=== PATIENT | female | born 1935 | race Caucasian/White ===

== ENCOUNTER 2017-07-31 09:23 | Emergency (ER) | payer MEDICARE, BC ==
--- NOTE | 2017-07-31 09:37 | EDM.PDOC ---
ED HPI GENERAL MEDICAL PROBLEM - General Chief Complaint: Upper Extremity Injury/Pain Stated Complaint: FALL Time Seen by Provider: 07/31/17 09:33 - History of Present Illness INITIAL COMMENTS - FREE TEXT/NARRATIVE: HISTORY AND PHYSICAL: History of present illness: Patient is a 81-year-old white female who presents 24 hours status post fall which injured her right wrist she states she tripped over a cord was strictly mechanical fall she states she also hit her face and her glasses caused some trauma and periorbital ecchymosis she denies loss consciousness neck pain nausea vomiting and is declining any diagnostics or further evaluation for her had her neck related to this she is only interested in an x-ray of her right wrist in her wrist pain. She denies any bleeding diathesis denies anticoagulants or antiplatelets Review of systems: As per history of present illness and below otherwise all systems reviewed and negative. Past medical history: As per history of present illness and as reviewed below otherwise noncontributory. Surgical history: As per history of present illness and as reviewed below otherwise noncontributory. Social history: No reported history of drug or alcohol abuse. Family history: As per history of present illness and as reviewed below otherwise noncontributory. Physical exam: HEENT: Patient has some midface ecchymosis and swelling and an abrasion over the bridge of her nose normocephalic, pupils reactive, negative for conjunctival pallor or scleral icterus, mucous membranes moist, throat clear, neck supple, nontender, trachea midline. Lungs: Clear to auscultation, breath sounds equal bilaterally, chest nontender. Heart: S1S2, regular, negative for clicks, rubs, or JVD. Abdomen: Soft, nondistended, nontender. Negative for masses or hepatosplenomegaly. Negative for costovertebral tenderness. Pelvis: Stable nontender. Genitourinary: Deferred. Rectal: Deferred. Extremities: Patient has some tenderness and swelling over the distal radius of her right wrist she has limited range of motion secondary to pain CMS neurovascular exam are unremarkable Neuro: Awake, alert, oriented. Cranial nerves II through XII unremarkable. Cerebellum unremarkable. Motor and sensory unremarkable throughout. Exam nonfocal. Diagnostics: X-ray right wrist Therapeutics: To be determined Impression: #1 acute right wrist injury #2 observation status post fall #3 head trauma with midface swelling and ecchymosis Definitive disposition and diagnosis as appropriate pending reevaluation and review of above. - Related Data Allergies Allergy/AdvReac Type Severity Reaction Status Date / Time No Known Allergies Allergy Verified 07/31/17 09:40 Home Meds: Home Meds Losartan/Hydrochlorothiazide [Losartan-HCTZ 100-25 MG] 1 tab PO DAILY 07/31/17 [ History] atorvaSTATin [Lipitor] 20 mg PO DAILY 07/31/17 [History] Review of Systems - Review of Systems Review Of Systems: ROS reveals no pertinent complaints other than HPI. ED EXAM, GENERAL - Physical Exam Exam: See Below (See dictation) Course - Vital Signs Last Recorded V/S: Last Vital Signs Temp 36.7 C 07/31/17 09:33 Pulse 88 07/31/17 09:33 Resp 18 07/31/17 09:33 BP 117/55 L 07/31/17 09:33 Pulse Ox 94 L 07/31/17 09:33 Departure - Departure Time of Disposition: 10:49 Disposition: Home, Self-Care 01 Condition: Good Clinical Impression: Fracture of radius and ulna - Discharge Information Referrals: Ari Mera MD [Primary Care Provider] - Forms: ED Department Discharge Additional Instructions: The following information is given to patients seen in the emergency department who are being discharged to home. This information is to outline your options for follow-up care. We provide all patients seen in our emergency department with a follow-up referral. The need for follow-up, as well as the timing and circumstances, are variable depending upon the specifics of your emergency department visit. If you don't have a primary care physician on staff, we will provide you with a referral. We always advise you to contact your personal physician following an emergency department visit to inform them of the circumstance of the visit and for follow-up with them and/or the need for any referrals to a consulting specialist. The emergency department will also refer you to a specialist when appropriate. This referral assures that you have the opportunity for followup care with a specialist. All of these measure are taken in an effort to provide you with optimal care, which includes your followup. Under all circumstances we always encourage you to contact your private physician who remains a resource for coordinating your care. When calling for followup care, please make the office aware that this follow-up is from your recent emergency room visit. If for any reason you are refused follow-up, please contact the [facility] emergency department at and asked to speak to the emergency department charge nurse. BAHMAN [facility] [address], [address] [place] [address] Splint sling as directed Motrin/Tylenol as directed follow-up orthopedic clinic as discussed return as needed as discussed
--- NOTE | 2017-07-31 10:01 | CR ---
EXAMINATION: Right wrist HISTORY: Fall COMPARISON: None TECHNIQUE: 3 views FINDINGS: There is a mildly impacted comminuted distal radial metaphysis fracture identified. An zane cent ulnar styloid fracture also noted. Chondrocalcinosis is present. Moderate generalized osteopenia . Radiocarpal alignment is preserved. Mild degenerative changes noted at the first CMC joint. IMPRESSION: 1. Comminuted mildly impacted distal radial metaphysis fracture. 2. Smaller styloid fracture. 3. Generalized osteopenia.
== END 2017-07-31 11:20 | disposition home or self-care (01) ==
LOC: MW.ED 09:23
DX: S52.591A Other fractures of lower end of right radius, initial encounter for closed fracture (principal); S52.611A Displaced fracture of right ulna styloid process, initial encounter for closed fracture; S00.83XA Contusion of other part of head, initial encounter; S00.31XA Abrasion of nose, initial encounter; Z79.899 Other long term (current) drug therapy; W01.0XXA Fall on same level from slipping, tripping and stumbling without subsequent striking against object, initial encounter
CPT/HCPCS: 73110; 99283; A4566

== ENCOUNTER 2019-08-25 12:54 | Inpatient (IN) | payer MEDICARE, BC, OTHER ==
--- NOTE | 2019-08-25 13:34 | EDM.PDOC ---
ED HPI GENERAL MEDICAL PROBLEM - General Chief Complaint: General Stated Complaint: PT FELL Time Seen by Provider: 08/25/19 13:30 Source of Information: Reports: Patient History Limitations: Reports: No Limitations - History of Present Illness INITIAL COMMENTS - FREE TEXT/NARRATIVE: This 84 year old female was admitted to the ED with a chief complaint of falling while bending over trying to get a can of coke out of her closet. She states that she fell backwards striking the back of her head. She denies any loss of consciousness but was dazed. She denies any focal neurologic deficits. She denies any chest pain or SOB. No nausea or vomiting. No urinary symptoms. She complains of being very thirsty and that her mouth is "real dry" . She denies any other symptoms at this time. Onset: Today Location: Reports: Head (struck back of head) Severity: Mild - Related Data Allergies Allergy/AdvReac Type Severity Reaction Status Date / Time No Known Allergies Allergy Verified 07/31/17 09:40 Home Meds: Home Meds Losartan/Hydrochlorothiazide [Losartan-HCTZ 100-25 MG] 1 tab PO DAILY 07/31/17 [ History] atorvaSTATin [Lipitor] 20 mg PO DAILY 07/31/17 [History] Past Medical History HEENT History: Reports: None Cardiovascular History: Reports: Aneurysm, High Cholesterol, Hypertension Respiratory History: Reports: None Gastrointestinal History: Reports: None Genitourinary History: Reports: None 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: hysterectomy Musculoskeletal History: Reports: Arthritis, Back Pain, Chronic Neurological History: Reports: None Psychiatric History: Reports: None Endocrine/Metabolic History: Reports: Hypothyroidism Hematologic History: Reports: None Immunologic History: Reports: None Oncologic (Cancer) History: Reports: None Dermatologic History: Reports: None - Infectious Disease History Infectious Disease History: Reports: Chicken Pox, Meningitis, Mumps - Past Surgical History Head Surgeries/Procedures: Reports: None HEENT Surgical History: Reports: None Cardiovascular Surgical History: Reports: None Respiratory Surgical History: Reports: None GI Surgical History: Reports: Appendectomy, Cholecystectomy Female Surgical History: Reports: Hysterectomy Endocrine Surgical History: Reports: None Neurological Surgical History: Reports: None Musculoskeletal Surgical History: Reports: None Oncologic Surgical History: Reports: None Dermatological Surgical History: Reports: None Social & Family History - Family History Family Medical History: Noncontributory - Tobacco Use Smoking Status *Q: Current Every Day Smoker Years of Tobacco use: 63 Packs/Tins Daily: 2 - Caffeine Use Caffeine Use: Reports: None - Recreational Drug Use Recreational Drug Use: No ED ROS GENERAL - Review of Systems Review Of Systems: See Below Constitutional: Reports: No Symptoms HEENT: Reports: Other (mild headache). Denies: Vertigo Respiratory: Reports: No Symptoms Cardiovascular: Reports: No Symptoms Endocrine: Reports: No Symptoms GI/Abdominal: Reports: No Symptoms : Reports: No Symptoms Musculoskeletal: Reports: No Symptoms Skin: Reports: No Symptoms Neurological: Reports: No Symptoms Psychiatric: Reports: Other (mild age related) ED EXAM, GENERAL - Physical Exam Exam: See Below Exam Limited By: No Limitations General Appearance: Alert, WD/WN, No Apparent Distress Eye Exam: Bilateral Eye: EOMI, Normal Fundi, Normal Inspection, PERRL Ears: Normal External Exam, Normal Canal, Hearing Grossly Normal, Normal TMs Ear Exam: Bilateral Ear: Auricle Normal, Canal Normal, TM normal Nose: Normal Inspection, Normal Mucosa, No Blood Throat/Mouth: Normal Inspection, Normal Lips, Normal Teeth, Normal Gums, Normal Oropharynx, Normal Voice, No Airway Compromise Head: Normocephalic, Other (very small lump on the occipital area that does not elicit pain or discomfort). No: Facial Swelling, Facial Tenderness Neck: Normal Inspection, Supple, Non-Tender, Full Range of Motion Respiratory/Chest: No Respiratory Distress, Chest Non-Tender, Decreased Breath Sounds (slight decrease breath sounds right base), Rhonchi (noted in right base with fine rales) Cardiovascular: Normal Peripheral Pulses, JVD, Bradycardia (but normal sinus rhythm), Systolic Murmur (systolic ejection murmur grade 3/6 best heard at the apex without radiation into the carotids.) Peripheral Pulses: 2+: Dorsalis Pedis (R), 3+: Carotid (L), Carotid (R), Radial (L), Radial (R), Dorsalis Pedis (L) GI/Abdominal: Normal Bowel Sounds, Soft, Non-Tender, No Organomegaly, No Abnormal Bruit, No Mass (Female) Exam: Deferred Rectal (Female) Exam: Deferred Back Exam: Normal Inspection, Decreased Range of Motion (in all planes due to pain), Other (chronic low back pain with arth changes in her spine) Extremities: Normal Inspection, Normal Range of Motion, Non-Tender, Slow Capillary Refill. No: Tahira's Sign Neurological: Alert, Oriented (to person, place and situation but not day of week.), CN II-XII Intact, Normal Reflexes, No Motor/Sensory Deficits Psychiatric: Normal Affect, Normal Mood Skin Exam: Warm, Dry (slight decrease in skin tugor), Normal Color Lymphatic: No Adenopathy Course - Vital Signs Text/Narrative:: I talked with Dr. Rajput at 3:46PM. I discussed all of her labs and imaging studies. Her diagnosis is: Acute renal injury/right lower lobe pneumonia/ dehydration. She is a DNR/DNI that was verified by the patient and her son. She will be started on Rocephin and Zithromax. She will be admitted to OBS/ TELE. The patient and the son agrees with the admission plan. Last Recorded V/S: Last Vital Signs Temp 97.8 F 08/25/19 15:05 Pulse 63 08/25/19 15:05 Resp 15 08/25/19 15:05 BP 160/64 H 08/25/19 15:05 Pulse Ox 99 08/25/19 15:05 - Orders/Labs/Meds Orders: Active Orders 24 hr Category Date Time Status EKG 12 Lead [EKG Documentation Completion] [RC] STAT Care 08/25/19 13:31 Active Chappell Catheter Insertion [Insert Urinary Catheter] [OM. Care 08/25/19 15:30 Ordered PC] Q24H Urinary Catheter Assessment [RC] ASDIRECTED Care 08/25/19 15:24 Ordered B-TYPE NATRIURETIC PEPTIDE,BNP [CHEM] Stat Lab 08/25/19 15:28 Ordered CULTURE BLOOD [BC] Stat Lab 08/25/19 15:24 Ordered CULTURE BLOOD [BC] Stat Lab 08/25/19 15:24 Ordered LACTIC ACID,WHOLE BLOOD [BG] Stat Lab 08/25/19 15:28 Ordered UA W/TATIANA RFLX IF INDICATED [URIN] Stat Lab 08/25/19 15:22 Ordered Azithromycin [Zithromax] 500 mg Med 08/25/19 15:45 Ordered Sodium Chloride 0.9% [Normal Saline (AdvBag)] 250 ml IV ONETIME Sodium Chloride 0.9% [Normal Saline] 1,000 ml Med 08/25/19 15:30 Active IV ASDIRECTED Sodium Chloride 0.9% [Normal Saline] 500 ml Med 08/25/19 14:00 Active IV .BOLUS cefTRIAXone [Rocephin] 1 gm Med 08/25/19 15:42 Ordered Sodium Chloride 0.9% [Normal Saline] 50 ml IV ONETIME Blood Culture x2 Reflex Set [OM.PC] Stat Oth 08/25/19 15:22 Ordered Medication Orders Sodium Chloride (Normal Saline) 500 mls @ 500 mls/hr IV .BOLUS ARLYN Last Admin: 08/25/19 14:14 Dose: 500 mls/hr Sodium Chloride (Normal Saline) 1,000 mls @ 999 mls/hr IV ASDIRECTED ARLYN Last Admin: 08/25/19 15:26 Dose: 999 mls/hr Azithromycin 500 mg/ Sodium (Chloride) 250 mls @ 250 mls/hr IV ONETIME ARLYN Ceftriaxone Sodium 1 gm/ (Sodium Chloride) 50 mls @ 100 mls/hr IV ONETIME ONE Stop: 08/25/19 16:11 Labs: Laboratory Tests 08/25/19 08/25/19 Range/Units 13:47 13:47 WBC 17.24 H (4.0-11.0) K/uL RBC 3.93 L (4.30-5.90) M/uL Hgb 12.3 (12.0-16.0) g/dL Hct 36.9 (36.0-46.0) % MCV 93.9 (80.0-98.0) fL MCH 31.3 (27.0-32.0) pg MCHC 33.3 (31.0-37.0) g/dL RDW Std Deviation 46.2 (28.0-62.0) fl RDW Coeff of Rossana 13 (11.0-15.0) % Plt Count 224 (150-400) K/uL MPV 9.90 (7.40-12.00) fL Neut % (Auto) 91.6 H (48.0-80.0) % Lymph % (Auto) 3.2 L (16.0-40.0) % Moore % (Auto) 5.0 (0.0-15.0) % Eos % (Auto) 0.1 (0.0-7.0) % Baso % (Auto) 0.1 (0.0-1.5) % Neut # (Auto) 15.8 H (1.4-5.7) K/uL Lymph # (Auto) 0.6 (0.6-2.4) K/uL Moore # (Auto) 0.9 H (0.0-0.8) K/uL Eos # (Auto) 0.0 (0.0-0.7) K/uL Baso # (Auto) 0.0 (0.0-0.1) K/uL Nucleated RBC % 0.0 /100WBC Nucleated RBCs # 0 K/uL Sodium 137 (136-145) mmol/L Potassium 3.8 (3.5-5.1) mmol/L Chloride 99 (98-107) mmol/L Carbon Dioxide 23.7 (21.0-32.0) mmol/L BUN 84 H (7.0-18.0) mg/dL Creatinine 2.7 H (0.6-1.0) mg/dL Est Cr Clr Drug Dosing 15.04 mL/min Estimated GFR (MDRD) 16.9 ml/min Glucose 110 H (74-106) mg/dL Calcium 9.1 (8.5-10.1) mg/dL Magnesium 2.5 H (1.8-2.4) mg/dL Total Bilirubin 1.1 H (0.2-1.0) mg/dL AST 36 (15-37) IU/L ALT 18 (14-63) IU/L Alkaline Phosphatase 147 H (46-116) U/L Troponin I < 0.050 (0.000-0.056) ng/mL Total Protein 7.5 (6.4-8.2) g/dL Albumin 3.4 (3.4-5.0) g/dL Globulin 4.1 H (2.6-4.0) g/dL Albumin/Globulin Ratio 0.8 L (0.9-1.6) Meds: Medications Generic Name Dose Route Start Last Admin Trade Name Freq PRN Reason Stop Dose Admin Sodium Chloride 500 mls @ 500 mls/hr 08/25/19 14:00 08/25/19 14:14 Normal Saline IV 500 mls/hr .BOLUS ARLYN Administration Sodium Chloride 1,000 mls @ 999 mls/hr 08/25/19 15:30 08/25/19 15:26 Normal Saline IV 999 mls/hr ASDIRECTED ARLYN Administration Azithromycin 500 mg/ Sodium 250 mls @ 250 mls/hr 08/25/19 15:45 Chloride IV ONETIME ARLYN Ceftriaxone Sodium 1 gm/ 50 mls @ 100 mls/hr 08/25/19 15:42 Sodium Chloride IV 08/25/19 16:11 ONETIME ONE Departure - Departure Time of Disposition: 15:50 Disposition: Refer to Observation Condition: Fair Clinical Impression: Acute renal injury, Dehydration, DNR (do not resuscitate), DNI (do not intubate ) Pneumonia involving right lung Qualifiers: Pneumonia type: due to unspecified organism Lung location: lower lobe of lung Qualified Code(s): J18.9 - Pneumonia, unspecified organism - Discharge Information *PRESCRIPTION DRUG MONITORING PROGRAM REVIEWED*: Yes *COPY OF PRESCRIPTION DRUG MONITORING REPORT IN PATIENT MIGUEL: Yes Referrals: Ari Mera MD [Primary Care Provider] - Forms: ED Department Discharge Sepsis Event Note - Evaluation Sepsis Screening Result: No Definite Risk - Focused Exam Vital Signs: Vital Signs Temp Pulse Resp BP Pulse Ox 08/25/19 15:05 97.8 F 63 15 160/64 H 99 08/25/19 13:10 97.7 F 57 L 18 137/57 L 99 Date Exam was Performed: 08/25/19 Time Exam was Performed: 15:45 - My Orders Last 24 Hours: My Active Orders 08/25/19 13:31 EKG 12 Lead [EKG Documentation Completion] [RC] STAT 08/25/19 14:00 Sodium Chloride 0.9% [Normal Saline] 500 ml IV .BOLUS 08/25/19 15:22 UA W/TATIANA RFLX IF INDICATED [URIN] Stat Blood Culture x2 Reflex Set [OM.PC] Stat 08/25/19 15:24 Urinary Catheter Assessment [RC] ASDIRECTED CULTURE BLOOD [BC] Stat CULTURE BLOOD [BC] Stat 08/25/19 15:28 B-TYPE NATRIURETIC PEPTIDE,BNP [CHEM] Stat LACTIC ACID,WHOLE BLOOD [BG] Stat 08/25/19 15:30 Chappell Catheter Insertion [Insert Urinary Catheter] [OM.PC] Q24H Sodium Chloride 0.9% [Normal Saline] 1,000 ml IV ASDIRECTED 08/25/19 15:42 cefTRIAXone [Rocephin] 1 gm Sodium Chloride 0.9% [Normal Saline] 50 ml IV ONETIME 08/25/19 15:45 Azithromycin [Zithromax] 500 mg Sodium Chloride 0.9% [Normal Saline (AdvBag)] 250 ml IV ONETIME - Assessment/Plan Last 24 Hours: My Active Orders 08/25/19 13:31 EKG 12 Lead [EKG Documentation Completion] [RC] STAT 08/25/19 14:00 Sodium Chloride 0.9% [Normal Saline] 500 ml IV .BOLUS 08/25/19 15:22 UA W/TATIANA RFLX IF INDICATED [URIN] Stat Blood Culture x2 Reflex Set [OM.PC] Stat 08/25/19 15:24 Urinary Catheter Assessment [RC] ASDIRECTED CULTURE BLOOD [BC] Stat CULTURE BLOOD [BC] Stat 08/25/19 15:28 B-TYPE NATRIURETIC PEPTIDE,BNP [CHEM] Stat LACTIC ACID,WHOLE BLOOD [BG] Stat 08/25/19 15:30 Chappell Catheter Insertion [Insert Urinary Catheter] [OM.PC] Q24H Sodium Chloride 0.9% [Normal Saline] 1,000 ml IV ASDIRECTED 08/25/19 15:42 cefTRIAXone [Rocephin] 1 gm Sodium Chloride 0.9% [Normal Saline] 50 ml IV ONETIME 08/25/19 15:45 Azithromycin [Zithromax] 500 mg Sodium Chloride 0.9% [Normal Saline (AdvBag)] 250 ml IV ONETIME
[2019-08-25] MEDS ORDERED: Sodium Chloride 0.9% 500 ML IV SCH (14:00)
[2019-08-25 14:22] LABS: BLOOD UREA NITROGEN,BUN 84 mg/dL (7.0-18.0); CARBON DIOXIDE,CO2 23.7 mmol/L (21.0-32.0); CHLORIDE,CL 99 mmol/L (98-107); GLUCOSE RANDOM 110 mg/dL (74-106); POTASSIUM,K 3.8 mmol/L (3.5-5.1); SODIUM,NA 137 mmol/L (136-145)
--- NOTE | 2019-08-25 14:38 | CR ---
Chest: Frontal view of the chest was obtained. Comparison: No previous chest x-ray. Parenchymal density is noted within the right lung base. Lungs otherwise are clear. Heart size is mildly enlarged. Tortuous thoracic aorta is seen. Impression: 1. Parenchymal density within the right lung base. Differential includes pulmonary contusion as well as pneumonia. 2. Nothing acute is otherwise seen. Diagnostic code #3 Study was dictated in MDT
--- NOTE | 2019-08-25 15:17 | CT ---
Head CT Technique: Multiple axial sections through the brain were obtained. Intravenous contrast was not utilized. Comparison: No prior intracranial imaging is available. Findings: Ventricles along with basal cisterns and sulci over convexities are mildly prominent. Atherosclerotic calcification is seen within the vertebral vessels and within the carotid siphon. Minimal diminished density is noted within the periventricular white matter compatible with small vessel ischemic demyelination change. No other abnormal parenchymal densities are seen. No evidence of intracranial hemorrhage. No midline shift or mass effect is seen. Bone window settings were reviewed. Visualized mastoid sinuses and paranasal sinuses show nothing acute. No acute calvarial abnormality is appreciated. Impression: 1. Senescent change as noted above. 2. No acute intracranial abnormality is appreciated. Diagnostic code #1 Study was dictated in MDT
[2019-08-25] MEDS ORDERED: Sodium Chloride 0.9% 1,000 ML IV SCH (15:30)
[2019-08-25] MEDS ORDERED: cefTRIAXone 1 GM in Sodium Chloride 0.9% 50 ML IV ONE (15:42)
[2019-08-25] MEDS ORDERED: Ondansetron 4 MG Tab.DIS PO PRN (16:36)
[2019-08-25] MEDS ORDERED: Ondansetron 4 MG/2 ML SDV IVPUSH PRN (16:36)
[2019-08-25] MEDS: Azithromycin 500 MG in Sodium Chloride 0.9% 250 ML IV SCH (16:49)
[2019-08-25] MEDS: Heparin Sodium 5,000 Units/ML Vial SUBCUT SCH (17:51)
[2019-08-25] MEDS: Acetaminophen 325 MG Tab PO PRN (18:34)
[2019-08-25] MEDS: Lactated Ringers 1,000 ML IV SCH (18:36)
[2019-08-25] MEDS ORDERED: Morphine 2 MG/ML SYRINGE IVPUSH PRN (19:15)
--- NOTE | 2019-08-25 20:45 | CR ---
Lumbar spine: AP and lateral views of the lumbar spine were obtained. Comparison: No prior lumbar spine exam. Mild superior endplate compression deformity is noted superiorly within L3. Mild endplate compression deformity is noted superiorly within L2. Slight anterior wedge deformity noted of L1. Moderate anterior wedge deformity noted of T11. Pedicles are intact. Visualized transverse and spinous processes are intact. Abdominal aortic aneurysm is seen measuring 3.7 cm on this exam. No subluxation is appreciated. Impression: 1. Multiple compression deformities as noted above. Uncertain which ones are acute and which ones may be old. MRI would be needed to further age these compression deformities. 2. Abdominal aortic aneurysm measuring 3.7 cm which is slightly exaggerated due to magnification on plain film study. Diagnostic code #3 Study was dictated in MDT
--- NOTE | 2019-08-25 20:45 | CR ---
Thoracic spine: AP and lateral views of the thoracic spine were obtained. Compression deformity is again seen within T11 and L1. No other compression deformities are appreciated within the thoracic spine. Bony structures are osteopenic. Carotid artery calcification is noted. Pedicles are intact. No abnormal subluxation is seen. Impression: 1. Compression deformities of T11 and L1 again noted. As mentioned on lumbar spine exam, MRI would be needed to further age these findings. 2. Other findings as noted above. No other acute abnormality is appreciated. Diagnostic code #3 Study was dictated in MDT
--- NOTE | 2019-08-25 21:06 | PCM.HP.2 ---
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 She has a PMH of HTN, hyperlipidemia and hypothyroidism. Patient reports falling on her side and hitting her head but did not lose consciousness. She reports lying on the floor for 20 minutes before being found by her son. Patient complains of being very thirst lately, mild chronic cough and sinus congestion. No recent travel or known sick contacts. but denies any fevers, chills, sore throat, SOB, chest pain, n/v/d, blood in stool or blood in urine. In the ER, WBC count 17, creatinine 2.7, GFR 15, troponin negative, UA unremarkable, CT head negative and CXR showed RLL density. Patient given 1.5 L fluid bolus and dose of IV ceftriaxone and azithromycin. Patient admitted for further evaluation and treatment. - Related Data Allergies/Adverse Reactions: Allergies Allergy/AdvReac Type Severity Reaction Status Date / Time No Known Allergies Allergy Verified 08/29/19 04:54 Home Medications: Home Meds Losartan/Hydrochlorothiazide [Losartan-HCTZ 100-25 MG] 1 tab PO DAILY 07/31/17 [ History] atorvaSTATin [Lipitor] 20 mg PO DAILY 07/31/17 [History] Levothyroxine Sodium [Synthroid] 1 tab PO DAILY 08/25/19 [History] Azithromycin 500 mg PO DAILY 1 Days #1 tablet 08/30/19 [Rx] Calcium Carbonate/Vitamin D3 [Caltrate 600+D 1500 MG-400 Units] 1 tab PO DAILY 7 Days #7 tablet 08/30/19 [Rx] Cefdinir 300 mg PO BID 1 Days #2 capsule 08/30/19 [Rx] Lidocaine 5% [Lidoderm 5%] 700 mg TOP DAILY 7 Days #7 patch 08/30/19 [Rx] oxyCODONE 5 mg PO Q6H PRN 7 Days #24 tablet 08/30/19 [Rx] Past Medical History HEENT History: Reports: None Cardiovascular History: Reports: Aneurysm, High Cholesterol, Hypertension Respiratory History: Reports: None Gastrointestinal History: Reports: None Genitourinary History: Reports: None 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 OB/BYN History: hysterectomy Musculoskeletal History: Reports: Arthritis, Back Pain, Chronic Neurological History: Reports: None Psychiatric History: Reports: None Endocrine/Metabolic History: Reports: Hypothyroidism Hematologic History: Reports: None Immunologic History: Reports: None Oncologic (Cancer) History: Reports: None Dermatologic History: Reports: None - Infectious Disease History Infectious Disease History: Reports: Chicken Pox, Meningitis, Mumps - Past Surgical History Head Surgeries/Procedures: Reports: None HEENT Surgical History: Reports: None Cardiovascular Surgical History: Reports: Aneurysm Respiratory Surgical History: Reports: None GI Surgical History: Reports: Appendectomy, Cholecystectomy, Colonoscopy Female Surgical History: Reports: Hysterectomy Endocrine Surgical History: Reports: None Neurological Surgical History: Reports: None Musculoskeletal Surgical History: Reports: None Oncologic Surgical History: Reports: None Dermatological Surgical History: Reports: None Social & Family History - Family History Family Medical History: Noncontributory - Tobacco Use Smoking Status *Q: Current Every Day Smoker Years of Tobacco use: 67 Packs/Tins Daily: 0.5 Used Tobacco, but Quit: No - Caffeine Use Caffeine Use: Reports: Coffee Caffeine Use Comment: 1 cup per day - Recreational Drug Use Recreational Drug Use: No H&P Review of Systems - Review of Systems: Review Of Systems: Comprehensive ROS is negative, except as noted in HPI. Exam - Exam Exam: See Below - Vital Signs Vital Signs: Last Vital Signs Temp 97.4 F 08/25/19 17:30 Pulse 68 08/25/19 18:39 Resp 18 08/25/19 18:39 BP 154/57 H 08/25/19 18:39 Pulse Ox 94 L 08/25/19 18:39 Weight: 61.689 kg - Exam General: Alert, Oriented, Cooperative, Mild Distress HEENT: Conjunctiva Clear, EOMI, Hearing Intact, Posterior Pharynx Clear, Pupils Equal, Pupils Reactive Neck: Supple, Trachea Midline Lungs: Clear to Auscultation, Normal Respiratory Effort Cardiovascular: Regular Rate, Regular Rhythm GI/Abdominal Exam: Normal Bowel Sounds, Soft, Non-Tender, No Distention Back Exam: Other (generalized ttp over thoracic and lumbar spine) Extremities: Normal Inspection, No Pedal Edema Peripheral Pulses: 2+: Radial (L), Radial (R) Skin: Warm, Dry, Intact Neurological: Cranial Nerves Intact, Normal Speech, Normal Tone Neuro Extensive - Mental Status: Alert, Oriented x3, Normal Mood/Affect Psychiatric: Alert, Normal Affect, Normal Mood - Patient Data Lab Results Last 24 hrs: Laboratory Results - last 24 hr 08/25/19 08/25/19 08/25/19 Range/Units 13:47 13:47 13:47 WBC 17.24 H (4.0-11.0) K/uL RBC 3.93 L (4.30-5.90) M/uL Hgb 12.3 (12.0-16.0) g/dL Hct 36.9 (36.0-46.0) % MCV 93.9 (80.0-98.0) fL MCH 31.3 (27.0-32.0) pg MCHC 33.3 (31.0-37.0) g/dL RDW Std Deviation 46.2 (28.0-62.0) fl RDW Coeff of [place] 13 (11.0-15.0) % Plt Count 224 (150-400) K/uL MPV 9.90 (7.40-12.00) fL Neut % (Auto) 91.6 H (48.0-80.0) % Lymph % (Auto) 3.2 L (16.0-40.0) % [place] % (Auto) 5.0 (0.0-15.0) % Eos % (Auto) 0.1 (0.0-7.0) % Baso % (Auto) 0.1 (0.0-1.5) % Neut # (Auto) 15.8 H (1.4-5.7) K/uL Lymph # (Auto) 0.6 (0.6-2.4) K/uL [place] # (Auto) 0.9 H (0.0-0.8) K/uL Eos # (Auto) 0.0 (0.0-0.7) K/uL Baso # (Auto) 0.0 (0.0-0.1) K/uL Nucleated RBC % 0.0 /100WBC Nucleated RBCs # 0 K/uL Lactate (0.20-2.00) mmol/L Sodium 137 (136-145) mmol/L Potassium 3.8 (3.5-5.1) mmol/L Chloride 99 (98-107) mmol/L Carbon Dioxide 23.7 (21.0-32.0) mmol/L BUN 84 H (7.0-18.0) mg/dL Creatinine 2.7 H (0.6-1.0) mg/dL Est Cr Clr Drug Dosing 15.04 mL/min Estimated GFR (MDRD) 16.9 ml/min Glucose 110 H (74-106) mg/dL Calcium 9.1 (8.5-10.1) mg/dL Magnesium 2.5 H (1.8-2.4) mg/dL Total Bilirubin 1.1 H (0.2-1.0) mg/dL AST 36 (15-37) IU/L ALT 18 (14-63) IU/L Alkaline Phosphatase 147 H (46-116) U/L Creatine Kinase (26-308) U/L Troponin I < 0.050 (0.000-0.056) ng/mL B-Natriuretic Peptide 132 H (<100) PG/ML Total Protein 7.5 (6.4-8.2) g/dL Albumin 3.4 (3.4-5.0) g/dL Globulin 4.1 H (2.6-4.0) g/dL Albumin/Globulin Ratio 0.8 L (0.9-1.6) Urine Color Urine Appearance Urine pH (5.0-8.0) Ur Specific [place] (1.001-1.035) Urine Protein (NEGATIVE) mg/dL Urine Glucose (UA) (NEGATIVE) mg/dL Urine Ketones (NEGATIVE) mg/dL Urine Occult Blood (NEGATIVE) Urine Nitrite (NEGATIVE) Urine Bilirubin (NEGATIVE) Urine Urobilinogen (<2.0) EU/dL Ur Leukocyte Esterase (NEGATIVE) Urine RBC (0-2/HPF) Urine WBC (0-5/HPF) Ur Epithelial Cells (NONE-FEW) Urine Bacteria (NEGATIVE) Ur Random Creatinine mg/dL Ur Random Sodium (40.0-220.0) mmol/L 08/25/19 08/25/19 08/25/19 Range/Units 13:47 15:25 15:25 WBC (4.0-11.0) K/uL RBC (4.30-5.90) M/uL Hgb (12.0-16.0) g/dL Hct (36.0-46.0) % MCV (80.0-98.0) fL MCH (27.0-32.0) pg MCHC (31.0-37.0) g/dL RDW Std Deviation (28.0-62.0) fl RDW Coeff of [place] (11.0-15.0) % Plt Count (150-400) K/uL MPV (7.40-12.00) fL Neut % (Auto) (48.0-80.0) % Lymph % (Auto) (16.0-40.0) % [place] % (Auto) (0.0-15.0) % Eos % (Auto) (0.0-7.0) % Baso % (Auto) (0.0-1.5) % Neut # (Auto) (1.4-5.7) K/uL Lymph # (Auto) (0.6-2.4) K/uL [place] # (Auto) (0.0-0.8) K/uL Eos # (Auto) (0.0-0.7) K/uL Baso # (Auto) (0.0-0.1) K/uL Nucleated RBC % /100WBC Nucleated RBCs # K/uL Lactate (0.20-2.00) mmol/L Sodium (136-145) mmol/L Potassium (3.5-5.1) mmol/L Chloride (98-107) mmol/L Carbon Dioxide (21.0-32.0) mmol/L BUN (7.0-18.0) mg/dL Creatinine (0.6-1.0) mg/dL Est Cr Clr Drug Dosing mL/min Estimated GFR (MDRD) ml/min Glucose (74-106) mg/dL Calcium (8.5-10.1) mg/dL Magnesium (1.8-2.4) mg/dL Total Bilirubin (0.2-1.0) mg/dL AST (15-37) IU/L ALT (14-63) IU/L Alkaline Phosphatase (46-116) U/L Creatine Kinase 583 H (26-308) U/L Troponin I (0.000-0.056) ng/mL B-Natriuretic Peptide (<100) PG/ML Total Protein (6.4-8.2) g/dL Albumin (3.4-5.0) g/dL Globulin (2.6-4.0) g/dL Albumin/Globulin Ratio (0.9-1.6) Urine Color YELLOW Urine Appearance HAZY Urine pH 5.0 (5.0-8.0) Ur Specific [place] 1.025 (1.001-1.035) Urine Protein NEGATIVE (NEGATIVE) mg/dL Urine Glucose (UA) NEGATIVE (NEGATIVE) mg/dL Urine Ketones NEGATIVE (NEGATIVE) mg/dL Urine Occult Blood TRACE-LYSED H (NEGATIVE) Urine Nitrite NEGATIVE (NEGATIVE) Urine Bilirubin NEGATIVE (NEGATIVE) Urine Urobilinogen 1.0 (<2.0) EU/dL Ur Leukocyte Esterase NEGATIVE (NEGATIVE) Urine RBC 0-2 (0-2/HPF) Urine WBC 0-1 (0-5/HPF) Ur Epithelial Cells RARE (NONE-FEW) Urine Bacteria RARE (NEGATIVE) Ur Random Creatinine 111.6 mg/dL Ur Random Sodium 31.0 L (40.0-220.0) mmol/L 03/18/20 Range/Units 16:03 WBC (4.0-11.0) K/uL RBC (4.30-5.90) M/uL Hgb (12.0-16.0) g/dL Hct (36.0-46.0) % MCV (80.0-98.0) fL MCH (27.0-32.0) pg MCHC (31.0-37.0) g/dL RDW Std Deviation (28.0-62.0) fl RDW Coeff of [place] (11.0-15.0) % Plt Count (150-400) K/uL MPV (7.40-12.00) fL Neut % (Auto) (48.0-80.0) % Lymph % (Auto) (16.0-40.0) % [place] % (Auto) (0.0-15.0) % Eos % (Auto) (0.0-7.0) % Baso % (Auto) (0.0-1.5) % Neut # (Auto) (1.4-5.7) K/uL Lymph # (Auto) (0.6-2.4) K/uL [place] # (Auto) (0.0-0.8) K/uL Eos # (Auto) (0.0-0.7) K/uL Baso # (Auto) (0.0-0.1) K/uL Nucleated RBC % /100WBC Nucleated RBCs # K/uL Lactate 1.2 (0.20-2.00) mmol/L Sodium (136-145) mmol/L Potassium (3.5-5.1) mmol/L Chloride (98-107) mmol/L Carbon Dioxide (21.0-32.0) mmol/L BUN (7.0-18.0) mg/dL Creatinine (0.6-1.0) mg/dL Est Cr Clr Drug Dosing mL/min Estimated GFR (MDRD) ml/min Glucose (74-106) mg/dL Calcium (8.5-10.1) mg/dL Magnesium (1.8-2.4) mg/dL Total Bilirubin (0.2-1.0) mg/dL AST (15-37) IU/L ALT (14-63) IU/L Alkaline Phosphatase (46-116) U/L Creatine Kinase (26-308) U/L Troponin I (0.000-0.056) ng/mL B-Natriuretic Peptide (<100) PG/ML Total Protein (6.4-8.2) g/dL Albumin (3.4-5.0) g/dL Globulin (2.6-4.0) g/dL Albumin/Globulin Ratio (0.9-1.6) Urine Color Urine Appearance Urine pH (5.0-8.0) Ur Specific [place] (1.001-1.035) Urine Protein (NEGATIVE) mg/dL Urine Glucose (UA) (NEGATIVE) mg/dL Urine Ketones (NEGATIVE) mg/dL Urine Occult Blood (NEGATIVE) Urine Nitrite (NEGATIVE) Urine Bilirubin (NEGATIVE) Urine Urobilinogen (<2.0) EU/dL Ur Leukocyte Esterase (NEGATIVE) Urine RBC (0-2/HPF) Urine WBC (0-5/HPF) Ur Epithelial Cells (NONE-FEW) Urine Bacteria (NEGATIVE) Ur Random Creatinine mg/dL Ur Random Sodium (40.0-220.0) mmol/L Result Diagrams: 08/25/19 13:47 08/25/19 13:47 [place] Results Last 24 hrs: Microbiology 08/25/19 16:03 Anaerobic Blood Culture - Final Blood - Venous - Lab Draw 08/25/19 15:50 Anaerobic Blood Culture - Final Blood - Venous Sepsis Event Note - Evaluation Sepsis Screening Result: No Definite Risk - Focused Exam Vital Signs: Vital Signs Temp Pulse Resp BP Pulse Ox 08/25/19 18:39 68 18 154/57 H 94 L 08/25/19 17:30 97.4 F 70 14 146/65 H 96 08/25/19 16:17 97.1 F 76 18 167/63 H 97 08/25/19 15:05 97.8 F 63 15 160/64 H 99 08/25/19 13:10 97.7 F 57 L 18 137/57 L 99 Date Exam was Performed: 08/25/19 Time Exam was Performed: 20:59 Problem List Initiated/Reviewed/Updated: Yes Orders Last 24hrs: Active Orders 24 hr Category Date Time Status Admission Status [Patient Status] [ADT] Stat ADT 08/25/19 15:52 Active [place] Catheter Insertion [Insert Urinary Catheter] [OM. Care 08/25/19 15:30 Ordered PC] Q24H Oxygen Therapy [RC] PRN Care 08/25/19 16:36 Active Telemetry Monitoring [Cardiac Monitoring] [RC] Q8H Care 08/25/19 16:12 Active Up With Assistance [RC] ASDIRECTED Care 08/25/19 16:36 Active Urinary Catheter Assessment [RC] Q4H Care 08/25/19 15:24 Active VTE/DVT Education [RC] PER UNIT ROUTINE Care 08/25/19 16:36 Active Vital Signs [RC] Q4H Care 08/25/19 16:36 Active Consult to Physical Therapy [PT Evaluation and Cons 08/25/19 16:49 Active Treatment] [CONS] Routine Regular Diet [DIET] Diet 08/25/19 Lunch Active CBC WITH AUTO DIFF [HEME] AM Lab 08/26/19 05:11 Ordered COMPREHENSIVE METABOLIC PN,CMP [CHEM] AM Lab 08/26/19 05:11 Ordered CREATINE KINASE,CK [CHEM] AM Lab 08/26/19 05:11 Ordered CULTURE BLOOD [BC] Stat Lab 08/25/19 15:50 Results CULTURE BLOOD [BC] Stat Lab 08/25/19 16:03 Results Acetaminophen [Tylenol] Med 08/25/19 16:36 Active 650 mg PO Q4H PRN Azithromycin [Zithromax] 500 mg Med 08/26/19 09:00 Active Sodium Chloride 0.9% [Normal Saline (AdvBag)] 250 ml IV DAILY Azithromycin [Zithromax] 500 mg Med 08/25/19 15:45 Active Sodium Chloride 0.9% [Normal Saline (AdvBag)] 250 ml IV ONETIME Heparin Sodium Med 08/25/19 16:45 Active 5,000 units SUBCUT Q8H Lactated Ringers [Ringers, Lactated] 1,000 ml Med 08/25/19 17:45 Active IV ASDIRECTED Levothyroxine Med 08/26/19 07:00 Active 25 mcg PO DAILY@0700 Morphine Med 08/25/19 19:15 Active 2 mg IVPUSH Q6H PRN Ondansetron [Zofran ODT] Med 08/25/19 16:36 Active 4 mg PO Q4H PRN Ondansetron [Zofran] Med 08/25/19 16:36 Active 4 mg IVPUSH Q4H PRN atorvaSTATin [Lipitor] Med 08/26/19 09:00 Active 20 mg PO DAILY cefTRIAXone [Rocephin in Dextrose,Iso-Osm 1 GM/50 ML] 1 Med 08/26/19 09:00 Active gm Premix Bag 1 bag IV Q24H Blood Culture x2 Reflex Set [OM.PC] Stat Oth 08/25/19 15:22 Ordered Resuscitation Status Routine Resus Stat 08/25/19 16:36 Ordered Medication Orders Acetaminophen (Tylenol) 650 mg PO Q4H PRN PRN Reason: Pain (Mild 1-3)/fever Last Admin: 08/25/19 18:34 Dose: 650 mg Atorvastatin Calcium (Lipitor) 20 mg PO DAILY [facility] Heparin Sodium (Porcine) (Heparin Sodium) 5,000 units SUBCUT Q8H ARLYN Last Admin: 08/25/19 17:51 Dose: 5,000 units Azithromycin 500 mg/ Sodium (Chloride) 250 mls @ 250 mls/hr IV ONETIME ARLYN Last Admin: 08/25/19 16:49 Dose: 250 mls/hr Azithromycin 500 mg/ Sodium (Chloride) 250 mls @ 250 mls/hr IV DAILY [facility] Ceftriaxone Sodium/Dextrose 1 (gm/ Premix) 50 mls @ 100 mls/hr IV Q24H [facility] Lactated Ringer's (Ringers, Lactated) 1,000 mls @ 100 mls/hr IV ASDIRECTED [facility] Last Admin: 08/25/19 18:36 Dose: 100 mls/hr Levothyroxine Sodium (Levothyroxine) 25 mcg PO DAILY@0700 [facility] Morphine Sulfate (Morphine) 2 mg IVPUSH Q6H PRN PRN Reason: Pain Last Admin: 08/25/19 19:26 Dose: 2 mg Ondansetron HCl (Zofran Odt) 4 mg PO Q4H PRN PRN Reason: nausea, able to take PO Ondansetron HCl (Zofran) 4 mg IVPUSH Q4H PRN PRN Reason: Nausea Assessment/Plan Comment:: Assessment and Plan: 1. RLL pneumonia: - Will treat with IV ceftriaxone and azithromycin. Blood cultures pending. CXR showed RLL density. 2. Thoracic and lumbar back pain s/p fall: - Will order lumbar and thoracic x-rays. IV morphine and PO tylenol for pain. Avoid NSAID's in setting of #3. Will order PT. 3. ROSARIO: - Patient received 1.5 L fluid bolus in ER. Will start IV LR 100 cc/hr for maintenance. Will monitor. 4. Past medical history of HTN, hyperlipidemia and hypothyroidism: - Resume home medications. 5. DVT prophylaxis: heparin. <Aubree Rajput - Last Filed: 09/07/19 15:13> H&P History of Present Illness - General Admit Problem/Dx: Admission Diagnosis/Problem Admission Diagnosis/Problem Acute renal injury due to hypovolemia Right Hip Pain Score (Numeric/FACES): 8 Exam - Vital Signs Vital Signs: Last Vital Signs Temp 36.7 C 08/30/19 12:00 Pulse 75 08/30/19 12:00 Resp 16 08/30/19 12:00 BP 138/62 08/30/19 12:00 Pulse Ox 92 L 08/30/19 12:00 - Patient Data Result Diagrams: 08/29/19 05:50 08/29/19 05:50 - Problem List (1) Acute renal injury SNOMED Code(s): 60021949, 45161015 ICD Code: N17.9 - ACUTE KIDNEY FAILURE, UNSPECIFIED Status: Acute (2) Dehydration SNOMED Code(s): 43644519 ICD Code: E86.0 - DEHYDRATION Status: Acute (3) Pneumonia involving right lung SNOMED Code(s): 947456731 ICD Code: J18.9 - PNEUMONIA, UNSPECIFIED ORGANISM Status: Acute Qualifiers: Pneumonia type: due to unspecified organism Lung location: lower lobe of lung Qualified Code(s): J18.9 - Pneumonia, unspecified organism (4) Fracture of radius and ulna SNOMED Code(s): 84777110 ICD Code: S52.90XA - UNSP FRACTURE OF UNSP FOREARM, INIT FOR CLOS FX; S52.209A - UNSP FRACTURE OF SHAFT OF UNSP ULNA, INIT FOR CLOS FX Status: Acute Assessment/Plan Comment:: I performed history and physical exam of this patient independently and Agree with the above outlined management plan that was discussed with the resident in detail.
[2019-08-26] MEDS: Heparin Sodium 5,000 Units/ML Vial SUBCUT SCH ×3 (00:44→17:22)
[2019-08-26 06:48] LABS: CARBON DIOXIDE,CO2 23.6 mmol/L (21.0-32.0); POTASSIUM,K 3.6 mmol/L (3.5-5.1)
[2019-08-26] MEDS: Levothyroxine 25 MCG Tab PO SCH (07:07)
[2019-08-26] MEDS: Lactated Ringers 1,000 ML IV SCH ×2 (07:07→19:09)
--- NOTE | 2019-08-26 07:29 | PCM.PN ---
<Luciano Dupont M - Last Filed: 08/26/19 12:04> - General Info Date of Service: 08/26/19 Subjective Update: Patient reports back pain improving. Slept well overnight. Denies fevers, chills , nausea, vomiting, SOB or chest pain. - Patient Data Vitals - Most Recent: Last Vital Signs Temp 97.6 F 08/26/19 03:53 Pulse 65 08/26/19 03:53 Resp 14 08/26/19 03:53 BP 139/63 08/26/19 03:53 Pulse Ox 92 L 08/26/19 03:53 Weight - Most Recent: 61.689 kg I&O - Last 24 Hours: Intake & Output 08/25/19 08/26/19 08/26/19 22:59 06:59 14:59 Intake Total 1000 3600 Output Total 3900 Balance 1000 -300 Lab Results Last 24 Hours: Laboratory Results - last 24 hr 08/25/19 08/25/19 08/25/19 Range/Units 13:47 13:47 13:47 WBC 17.24 H (4.0-11.0) K/uL RBC 3.93 L (4.30-5.90) M/uL Hgb 12.3 (12.0-16.0) g/dL Hct 36.9 (36.0-46.0) % MCV 93.9 (80.0-98.0) fL MCH 31.3 (27.0-32.0) pg MCHC 33.3 (31.0-37.0) g/dL RDW Std Deviation 46.2 (28.0-62.0) fl RDW Coeff of [place] 13 (11.0-15.0) % Plt Count 224 (150-400) K/uL MPV 9.90 (7.40-12.00) fL Neut % (Auto) 91.6 H (48.0-80.0) % Lymph % (Auto) 3.2 L (16.0-40.0) % Creek % (Auto) 5.0 (0.0-15.0) % Eos % (Auto) 0.1 (0.0-7.0) % Baso % (Auto) 0.1 (0.0-1.5) % Neut # (Auto) 15.8 H (1.4-5.7) K/uL Lymph # (Auto) 0.6 (0.6-2.4) K/uL Creek # (Auto) 0.9 H (0.0-0.8) K/uL Eos # (Auto) 0.0 (0.0-0.7) K/uL Baso # (Auto) 0.0 (0.0-0.1) K/uL Nucleated RBC % 0.0 /100WBC Nucleated RBCs # 0 K/uL Lactate (0.20-2.00) mmol/L Sodium 137 (136-145) mmol/L Potassium 3.8 (3.5-5.1) mmol/L Chloride 99 (98-107) mmol/L Carbon Dioxide 23.7 (21.0-32.0) mmol/L BUN 84 H (7.0-18.0) mg/dL Creatinine 2.7 H (0.6-1.0) mg/dL Est Cr Clr Drug Dosing 15.04 mL/min Estimated GFR (MDRD) 16.9 ml/min Glucose 110 H (74-106) mg/dL Calcium 9.1 (8.5-10.1) mg/dL Magnesium 2.5 H (1.8-2.4) mg/dL Total Bilirubin 1.1 H (0.2-1.0) mg/dL AST 36 (15-37) IU/L ALT 18 (14-63) IU/L Alkaline Phosphatase 147 H (46-116) U/L Creatine Kinase (26-308) U/L Troponin I < 0.050 (0.000-0.056) ng/mL B-Natriuretic Peptide 132 H (<100) PG/ML Total Protein 7.5 (6.4-8.2) g/dL Albumin 3.4 (3.4-5.0) g/dL Globulin 4.1 H (2.6-4.0) g/dL Albumin/Globulin Ratio 0.8 L (0.9-1.6) Urine Color Urine Appearance Urine pH (5.0-8.0) Ur Specific [place] (1.001-1.035) Urine Protein (NEGATIVE) mg/dL Urine Glucose (UA) (NEGATIVE) mg/dL Urine Ketones (NEGATIVE) mg/dL Urine Occult Blood (NEGATIVE) Urine Nitrite (NEGATIVE) Urine Bilirubin (NEGATIVE) Urine Urobilinogen (<2.0) EU/dL Ur Leukocyte Esterase (NEGATIVE) Urine RBC (0-2/HPF) Urine WBC (0-5/HPF) Ur Epithelial Cells (NONE-FEW) Urine Bacteria (NEGATIVE) Ur Random Creatinine mg/dL Ur Random Sodium (40.0-220.0) mmol/L 08/25/19 08/25/19 08/25/19 Range/Units 13:47 15:25 15:25 WBC (4.0-11.0) K/uL RBC (4.30-5.90) M/uL Hgb (12.0-16.0) g/dL Hct (36.0-46.0) % MCV (80.0-98.0) fL MCH (27.0-32.0) pg MCHC (31.0-37.0) g/dL RDW Std Deviation (28.0-62.0) fl RDW Coeff of [place] (11.0-15.0) % Plt Count (150-400) K/uL MPV (7.40-12.00) fL Neut % (Auto) (48.0-80.0) % Lymph % (Auto) (16.0-40.0) % Creek % (Auto) (0.0-15.0) % Eos % (Auto) (0.0-7.0) % Baso % (Auto) (0.0-1.5) % Neut # (Auto) (1.4-5.7) K/uL Lymph # (Auto) (0.6-2.4) K/uL [place] # (Auto) (0.0-0.8) K/uL Eos # (Auto) (0.0-0.7) K/uL Baso # (Auto) (0.0-0.1) K/uL Nucleated RBC % /100WBC Nucleated RBCs # K/uL Lactate (0.20-2.00) mmol/L Sodium (136-145) mmol/L Potassium (3.5-5.1) mmol/L Chloride (98-107) mmol/L Carbon Dioxide (21.0-32.0) mmol/L BUN (7.0-18.0) mg/dL Creatinine (0.6-1.0) mg/dL Est Cr Clr Drug Dosing mL/min Estimated GFR (MDRD) ml/min Glucose (74-106) mg/dL Calcium (8.5-10.1) mg/dL Magnesium (1.8-2.4) mg/dL Total Bilirubin (0.2-1.0) mg/dL AST (15-37) IU/L ALT (14-63) IU/L Alkaline Phosphatase (46-116) U/L Creatine Kinase 583 H (26-308) U/L Troponin I (0.000-0.056) ng/mL B-Natriuretic Peptide (<100) PG/ML Total Protein (6.4-8.2) g/dL Albumin (3.4-5.0) g/dL Globulin (2.6-4.0) g/dL Albumin/Globulin Ratio (0.9-1.6) Urine Color YELLOW Urine Appearance HAZY Urine pH 5.0 (5.0-8.0) Ur Specific [place] 1.025 (1.001-1.035) Urine Protein NEGATIVE (NEGATIVE) mg/dL Urine Glucose (UA) NEGATIVE (NEGATIVE) mg/dL Urine Ketones NEGATIVE (NEGATIVE) mg/dL Urine Occult Blood TRACE-LYSED H (NEGATIVE) Urine Nitrite NEGATIVE (NEGATIVE) Urine Bilirubin NEGATIVE (NEGATIVE) Urine Urobilinogen 1.0 (<2.0) EU/dL Ur Leukocyte Esterase NEGATIVE (NEGATIVE) Urine RBC 0-2 (0-2/HPF) Urine WBC 0-1 (0-5/HPF) Ur Epithelial Cells RARE (NONE-FEW) Urine Bacteria RARE (NEGATIVE) Ur Random Creatinine 111.6 mg/dL Ur Random Sodium 31.0 L (40.0-220.0) mmol/L 08/25/19 08/26/19 08/26/19 Range/Units 16:03 06:08 06:08 WBC 12.99 H (4.0-11.0) K/uL RBC 3.27 L (4.30-5.90) M/uL Hgb 10.2 L (12.0-16.0) g/dL Hct 31.5 L (36.0-46.0) % MCV 96.3 (80.0-98.0) fL MCH 31.2 (27.0-32.0) pg MCHC 32.4 (31.0-37.0) g/dL RDW Std Deviation 46.5 (28.0-62.0) fl RDW Coeff of [place] 13 (11.0-15.0) % Plt Count 207 (150-400) K/uL MPV 9.90 (7.40-12.00) fL Neut % (Auto) 86.9 H (48.0-80.0) % Lymph % (Auto) 6.7 L (16.0-40.0) % Creek % (Auto) 5.9 (0.0-15.0) % Eos % (Auto) 0.3 (0.0-7.0) % Baso % (Auto) 0.2 (0.0-1.5) % Neut # (Auto) 11.3 H (1.4-5.7) K/uL Lymph # (Auto) 0.9 (0.6-2.4) K/uL [place] # (Auto) 0.8 (0.0-0.8) K/uL Eos # (Auto) 0.0 (0.0-0.7) K/uL Baso # (Auto) 0.0 (0.0-0.1) K/uL Nucleated RBC % 0.0 /100WBC Nucleated RBCs # 0 K/uL Lactate 1.2 (0.20-2.00) mmol/L Sodium 141 (136-145) mmol/L Potassium 3.6 (3.5-5.1) mmol/L Chloride 106 (98-107) mmol/L Carbon Dioxide 23.6 (21.0-32.0) mmol/L BUN 61 H (7.0-18.0) mg/dL Creatinine 1.8 H (0.6-1.0) mg/dL Est Cr Clr Drug Dosing 22.56 mL/min Estimated GFR (MDRD) 26.9 ml/min Glucose 67 L (74-106) mg/dL Calcium 8.6 (8.5-10.1) mg/dL Magnesium (1.8-2.4) mg/dL Total Bilirubin 0.6 (0.2-1.0) mg/dL AST 28 (15-37) IU/L ALT 15 (14-63) IU/L Alkaline Phosphatase 109 (46-116) U/L Creatine Kinase 229 (26-308) U/L Troponin I (0.000-0.056) ng/mL B-Natriuretic Peptide (<100) PG/ML Total Protein 5.7 L (6.4-8.2) g/dL Albumin 2.4 L (3.4-5.0) g/dL Globulin 3.3 (2.6-4.0) g/dL Albumin/Globulin Ratio 0.7 L (0.9-1.6) Urine Color Urine Appearance Urine pH (5.0-8.0) Ur Specific [place] (1.001-1.035) Urine Protein (NEGATIVE) mg/dL Urine Glucose (UA) (NEGATIVE) mg/dL Urine Ketones (NEGATIVE) mg/dL Urine Occult Blood (NEGATIVE) Urine Nitrite (NEGATIVE) Urine Bilirubin (NEGATIVE) Urine Urobilinogen (<2.0) EU/dL Ur Leukocyte Esterase (NEGATIVE) Urine RBC (0-2/HPF) Urine WBC (0-5/HPF) Ur Epithelial Cells (NONE-FEW) Urine Bacteria (NEGATIVE) Ur Random Creatinine mg/dL Ur Random Sodium (40.0-220.0) mmol/L [place] Results Last 24 Hours: Microbiology 08/25/19 16:03 Anaerobic Blood Culture - Final Blood - Venous - Lab Draw 08/25/19 15:50 Anaerobic Blood Culture - Final Blood - Venous Med Orders - Current: Current Medications Acetaminophen (Tylenol) 650 mg PO Q4H PRN PRN Reason: Pain (Mild 1-3)/fever Last Admin: 08/25/19 18:34 Dose: 650 mg Atorvastatin Calcium (Lipitor) 20 mg PO DAILY [facility] Heparin Sodium (Porcine) (Heparin Sodium) 5,000 units SUBCUT Q8H [facility] Last Admin: 08/26/19 00:44 Dose: 5,000 units Azithromycin 500 mg/ Sodium (Chloride) 250 mls @ 250 mls/hr IV ONETIME [facility] Last Admin: 08/25/19 16:49 Dose: 250 mls/hr Azithromycin 500 mg/ Sodium (Chloride) 250 mls @ 250 mls/hr IV DAILY [facility] Ceftriaxone Sodium/Dextrose 1 (gm/ Premix) 50 mls @ 100 mls/hr IV Q24H [facility] Lactated Ringer's (Ringers, Lactated) 1,000 mls @ 100 mls/hr IV ASDIRECTED [facility] Last Admin: 08/26/19 07:07 Dose: 100 mls/hr Levothyroxine Sodium (Levothyroxine) 25 mcg PO DAILY@0700 [facility] Last Admin: 08/26/19 07:07 Dose: 25 mcg Morphine Sulfate (Morphine) 2 mg IVPUSH Q6H PRN PRN Reason: Pain Last Admin: 08/25/19 19:26 Dose: 2 mg Ondansetron HCl (Zofran Odt) 4 mg PO Q4H PRN PRN Reason: nausea, able to take PO Ondansetron HCl (Zofran) 4 mg IVPUSH Q4H PRN PRN Reason: Nausea Discontinued Medications Hydrochlorothiazide (Hydrochlorothiazide) 25 mg PO DAILY [facility] Sodium Chloride (Normal Saline) 500 mls @ 500 mls/hr IV .BOLUS [facility] Last Admin: 08/25/19 14:14 Dose: 500 mls/hr Sodium Chloride (Normal Saline) 1,000 mls @ 999 mls/hr IV ASDIRECTED [facility] Last Admin: 08/25/19 15:26 Dose: 999 mls/hr Ceftriaxone Sodium 1 gm/ (Sodium Chloride) 50 mls @ 100 mls/hr IV ONETIME ONE Stop: 08/25/19 16:11 Last Admin: 08/25/19 15:52 Dose: 100 mls/hr Losartan Potassium (Cozaar) 100 mg PO DAILY [facility] Non-Formulary Medication (Losartan/Hydrochlorothiazide [Losartan-Hctz 100-25 Mg] ) 1 tab PO DAILY [facility] - Exam General: Alert, Oriented, Cooperative, No Acute Distress Lungs: Clear to Auscultation, Normal Respiratory Effort Cardiovascular: Regular Rate, Regular Rhythm, Other (Systolic murmur) GI/Abdominal Exam: Normal Bowel Sounds, Soft, Non-Tender, No Distention Extremities: Normal Inspection, No Pedal Edema Skin: Warm, Dry, Intact Sepsis Event Note - Evaluation Sepsis Screening Result: No Definite Risk - Focused Exam Vital Signs: Vital Signs Temp Pulse Resp BP Pulse Ox 08/26/19 03:53 97.6 F 65 14 139/63 92 L 08/26/19 00:43 98.0 F 60 18 130/60 93 L 08/26/19 00:00 97.9 F 60 18 155/70 H 97 Date Exam was Performed: 08/26/19 Time Exam was Performed: 12:04 - Problem List Review Problem List Initiated/Reviewed/Updated: Yes - My Orders Last 24 Hours: My Active Orders 08/25/19 16:36 Oxygen Therapy [RC] PRN Up With Assistance [RC] ASDIRECTED VTE/DVT Education [RC] PER UNIT ROUTINE Vital Signs [RC] Q4H Acetaminophen [Tylenol] 650 mg PO Q4H PRN Ondansetron [Zofran ODT] 4 mg PO Q4H PRN Ondansetron [Zofran] 4 mg IVPUSH Q4H PRN Resuscitation Status Routine 08/25/19 16:45 Heparin Sodium 5,000 units SUBCUT Q8H 08/25/19 16:49 Consult to Physical Therapy [PT Evaluation and Treatment] [CONS] Routine 08/25/19 17:45 Lactated Ringers [Ringers, Lactated] 1,000 ml IV ASDIRECTED 08/25/19 19:15 Morphine 2 mg IVPUSH Q6H PRN 08/25/19 Lunch Regular Diet [DIET] 08/26/19 07:00 Levothyroxine 25 mcg PO DAILY@0700 08/26/19 09:00 Azithromycin [Zithromax] 500 mg Sodium Chloride 0.9% [Normal Saline (AdvBag)] 250 ml IV DAILY atorvaSTATin [Lipitor] 20 mg PO DAILY cefTRIAXone [Rocephin in Dextrose,Iso-Osm 1 GM/50 ML] 1 gm Premix Bag 1 bag IV Q24H - Plan Plan:: Assessment and Plan: 1. Community acquired pneumonia: - Continue IV ceftriaxone and azithromycin. Leukocytosis downtrending. Blood cultures pending. CXR showed RLL density. - Per psych social worker, patient's son is currently being tested for COVID-19 after possible exposure to a person who tested positive for COVID19. Son was in direct contact with patient 4 days ago. Will order COVID19 testing and influenza swab as well. Droplet precautions. 2. Thoracic and lumbar back pain s/p fall: - Thoracic x-ray showed compression deformities of T11 and L1. Lumbar x-ray showed mild endplate compression deformity at L2 and L3, slight anterior wedge deformity at L1 and moderate anterior wedge deformity at T11. Per radiology, it is uncertain if findings are acute or chronic and MRI needed for further aging. IV morphine and PO tylenol for pain. Avoid NSAID's in setting of #3. 3. ROSARIO, improving: - FeNA 0.6% indicating pre-renal azotemia likely secondary to dehydration. Will continue IV LR 100 cc/hr for maintenance. 4. Past medical history of HTN, hyperlipidemia and hypothyroidism: - Resume home medications. 5. DVT prophylaxis: heparin. <ReguloAubree fuentes - Last Filed: 09/07/19 15:14> - Patient Data Vitals - Most Recent: Last Vital Signs Temp 36.7 C 08/30/19 12:00 Pulse 75 08/30/19 12:00 Resp 16 08/30/19 12:00 BP 138/62 08/30/19 12:00 Pulse Ox 92 L 08/30/19 12:00 Med Orders - Current: Current Medications Discontinued Medications Acetaminophen (Tylenol) 650 mg PO Q4H PRN PRN Reason: Pain (Mild 1-3)/fever Last Admin: 08/30/19 05:24 Dose: 650 mg Atorvastatin Calcium (Lipitor) 20 mg PO DAILY [facility] Last Admin: 08/30/19 09:41 Dose: 20 mg Azithromycin (Zithromax) 500 mg PO Q24H [facility] Last Admin: 08/30/19 09:40 Dose: 500 mg Calcium Carbonate (Caltrate 600+D 1500 Mg-400 Units) 1 tab PO DAILY [facility] Last Admin: 08/30/19 09:40 Dose: 1 tab HCTZ/Losartan Potassium (Hyzaar 50-12.5 Mg) 2 tab PO DAILY [facility] Last Admin: 08/30/19 11:42 Dose: Not Given Heparin Sodium (Porcine) (Heparin Sodium) 5,000 units SUBCUT Q8H [facility] Last Admin: 08/29/19 17:23 Dose: Not Given Hydrochlorothiazide (Hydrochlorothiazide) 25 mg PO DAILY [facility] Hydrochlorothiazide (Hydrochlorothiazide) 25 mg PO DAILY [facility] Last Admin: 08/30/19 11:20 Dose: 25 mg Sodium Chloride (Normal Saline) 500 mls @ 500 mls/hr IV .BOLUS [facility] Last Admin: 08/25/19 14:14 Dose: 500 mls/hr Sodium Chloride (Normal Saline) 1,000 mls @ 999 mls/hr IV ASDIRECTED [facility] Last Admin: 08/25/19 15:26 Dose: 999 mls/hr Azithromycin 500 mg/ Sodium (Chloride) 250 mls @ 250 mls/hr IV ONETIME [facility] Last Admin: 08/26/19 09:58 Dose: 250 mls/hr Ceftriaxone Sodium 1 gm/ (Sodium Chloride) 50 mls @ 100 mls/hr IV ONETIME ONE Stop: 08/25/19 16:11 Last Admin: 08/25/19 15:52 Dose: 100 mls/hr Azithromycin 500 mg/ Sodium (Chloride) 250 mls @ 250 mls/hr IV DAILY [facility] Last Admin: 08/26/19 10:07 Dose: 250 mls/hr Ceftriaxone Sodium/Dextrose 1 (gm/ Premix) 50 mls @ 100 mls/hr IV Q24H [facility] Last Admin: 08/30/19 09:49 Dose: 100 mls/hr Lactated Ringer's (Ringers, Lactated) 1,000 mls @ 100 mls/hr IV ASDIRECTED [facility] Last Admin: 08/27/19 09:40 Dose: 100 mls/hr Azithromycin 500 mg/ Sodium (Chloride) 250 mls @ 250 mls/hr IV Q24H [facility] Last Admin: 08/29/19 09:54 Dose: 250 mls/hr Ketorolac Tromethamine (Toradol) 30 mg IVPUSH ONETIME ONE Stop: 08/30/19 10:52 Last Admin: 08/30/19 11:30 Dose: 30 mg Levothyroxine Sodium (Levothyroxine) 25 mcg PO DAILY@0700 [facility] Last Admin: 08/30/19 06:46 Dose: 25 mcg Lidocaine (Lidoderm 5%) 700 mg TOP DAILY [facility] Last Admin: 08/30/19 11:21 Dose: 700 mg Losartan Potassium (Cozaar) 100 mg PO DAILY [facility] Losartan Potassium (Cozaar) 100 mg PO DAILY [facility] Last Admin: 08/30/19 11:20 Dose: 100 mg Morphine Sulfate (Morphine) 2 mg IVPUSH Q6H PRN PRN Reason: Pain Last Admin: 08/25/19 19:26 Dose: 2 mg Morphine Sulfate (Morphine) 1 mg IVPUSH Q6H PRN PRN Reason: Pain Last Admin: 08/29/19 04:48 Dose: 1 mg Morphine Sulfate (Morphine) 2 mg IVPUSH ONETIME ONE Stop: 08/30/19 06:25 Last Admin: 08/30/19 06:44 Dose: 2 mg Non-Formulary Medication (Losartan/Hydrochlorothiazide [Losartan-Hctz 100-25 Mg] ) 1 tab PO DAILY [facility] Ondansetron HCl (Zofran Odt) 4 mg PO Q4H PRN PRN Reason: nausea, able to take PO Ondansetron HCl (Zofran) 4 mg IVPUSH Q4H PRN PRN Reason: Nausea Last Admin: 08/30/19 06:00 Dose: 4 mg Oxycodone HCl (Oxycodone) 5 mg PO Q8H PRN PRN Reason: Pain Last Admin: 08/30/19 09:39 Dose: 5 mg Oxycodone HCl (Oxycodone) 5 mg PO Q6H PRN PRN Reason: Pain - Problem List & Annotations (1) Acute renal injury SNOMED Code(s): 74907816, 01622557 Code(s): N17.9 - ACUTE KIDNEY FAILURE, UNSPECIFIED Status: Acute (2) Dehydration SNOMED Code(s): 61669144 Code(s): E86.0 - DEHYDRATION Status: Acute (3) Pneumonia involving right lung SNOMED Code(s): 298992843 Code(s): J18.9 - PNEUMONIA, UNSPECIFIED ORGANISM Status: Acute Qualifiers: Pneumonia type: due to unspecified organism Lung location: lower lobe of lung Qualified Code(s): J18.9 - Pneumonia, unspecified organism (4) Fracture of radius and ulna SNOMED Code(s): 96743474 Code(s): S52.90XA - UNSP FRACTURE OF UNSP FOREARM, INIT FOR CLOS FX; S52.209A - UNSP FRACTURE OF SHAFT OF UNSP ULNA, INIT FOR CLOS FX Status: Acute - Plan Plan:: Patient was seen and examined by me along with the resident. Agree with the above outlined management plan.
[2019-08-26] MEDS: atorvaSTATin 20 MG Tab PO SCH (08:24)
[2019-08-26] MEDS: cefTRIAXone 1 GM in Premix Bag 1 BAG IV SCH (08:24)
[2019-08-26] MEDS ORDERED: Azithromycin 500 MG in Sodium Chloride 0.9% 250 ML IV SCH (09:00)
[2019-08-26] MEDS ORDERED: Losartan 50 MG Tab PO SCH (09:00)
[2019-08-26] MEDS ORDERED: Hydrochlorothiazide 25 MG Tab PO SCH (09:00)
[2019-08-26] MEDS: Azithromycin 500 MG in Sodium Chloride 0.9% 250 ML IV SCH (09:58)
[2019-08-27 06:53] LABS: POTASSIUM,K 3.5 mmol/L (3.5-5.1)
[2019-08-27] MEDS: Levothyroxine 25 MCG Tab PO SCH (07:11)
--- NOTE | 2019-08-27 08:15 | PCM.PN ---
<Luciano Dupont M - Last Filed: 08/27/19 11:06> - General Info Date of Service: 08/27/19 Subjective Update: No complaints at bedside this morning. Back pain feels better today. Tolerating oral diet but reports that she not been eating very much. Worked with PT yesterday. Denies any fevers, chills, n/v/d. - Patient Data Vitals - Most Recent: Last Vital Signs Temp 97.8 F 08/27/19 07:00 Pulse 74 08/27/19 07:00 Resp 16 08/27/19 07:00 BP 151/67 H 08/27/19 07:00 Pulse Ox 93 L 08/27/19 07:00 Weight - Most Recent: 61.689 kg I&O - Last 24 Hours: Intake & Output 08/26/19 08/27/19 08/27/19 22:59 06:59 14:59 Intake Total 1781 1254 Output Total 1800 700 Balance -19 554 Lab Results Last 24 Hours: Laboratory Results - last 24 hr 08/27/19 08/27/19 Range/Units 06:08 06:08 WBC 8.83 (4.0-11.0) K/uL RBC 3.15 L (4.30-5.90) M/uL Hgb 9.7 L (12.0-16.0) g/dL Hct 29.6 L (36.0-46.0) % MCV 94.0 (80.0-98.0) fL MCH 30.8 (27.0-32.0) pg MCHC 32.8 (31.0-37.0) g/dL RDW Std Deviation 45.3 (28.0-62.0) fl RDW Coeff of [place] 13 (11.0-15.0) % Plt Count 214 (150-400) K/uL MPV 9.90 (7.40-12.00) fL Neut % (Auto) 82.5 H (48.0-80.0) % Lymph % (Auto) 8.6 L (16.0-40.0) % [place] % (Auto) 8.5 (0.0-15.0) % Eos % (Auto) 0.2 (0.0-7.0) % Baso % (Auto) 0.2 (0.0-1.5) % Neut # (Auto) 7.3 H (1.4-5.7) K/uL Lymph # (Auto) 0.8 (0.6-2.4) K/uL [place] # (Auto) 0.8 (0.0-0.8) K/uL Eos # (Auto) 0.0 (0.0-0.7) K/uL Baso # (Auto) 0.0 (0.0-0.1) K/uL Nucleated RBC % 0.0 /100WBC Nucleated RBCs # 0 K/uL Sodium 140 (136-145) mmol/L Potassium 3.5 (3.5-5.1) mmol/L Chloride 105 (98-107) mmol/L Carbon Dioxide 27.0 (21.0-32.0) mmol/L BUN 33 H (7.0-18.0) mg/dL Creatinine 1.3 H (0.6-1.0) mg/dL Est Cr Clr Drug Dosing 31.23 mL/min Estimated GFR (MDRD) 39.2 ml/min Glucose 86 (74-106) mg/dL Calcium 8.3 L (8.5-10.1) mg/dL Total Bilirubin 0.5 (0.2-1.0) mg/dL AST 26 (15-37) IU/L ALT 14 (14-63) IU/L Alkaline Phosphatase 98 (46-116) U/L Total Protein 5.4 L (6.4-8.2) g/dL Albumin 2.2 L (3.4-5.0) g/dL Globulin 3.2 (2.6-4.0) g/dL Albumin/Globulin Ratio 0.7 L (0.9-1.6) [place] Results Last 24 Hours: Microbiology 08/25/19 16:03 Aerobic Blood Culture - Preliminary Blood - Venous - Lab Draw NO GROWTH AFTER 1 DAY Anaerobic Blood Culture - Final 08/25/19 15:50 Aerobic Blood Culture - Preliminary Blood - Venous NO GROWTH AFTER 1 DAY Anaerobic Blood Culture - Final 08/26/19 09:40 Influenza Type A Antigen Screen - Final Nasopharyngeal Swab NEGATIVE INFLUENZA A VIRUS AG REFERENCE RANGE: NEGATIVE Influenza Type B Antigen Screen - Final NEGATIVE INFLUENZA B VIRUS AG REFERENCE RANGE: NEGATIVE Med Orders - Current: Current Medications Acetaminophen (Tylenol) 650 mg PO Q4H PRN PRN Reason: Pain (Mild 1-3)/fever Last Admin: 08/25/19 18:34 Dose: 650 mg Atorvastatin Calcium (Lipitor) 20 mg PO DAILY [facility] Last Admin: 08/26/19 08:24 Dose: 20 mg Heparin Sodium (Porcine) (Heparin Sodium) 5,000 units SUBCUT Q8H [facility] Last Admin: 08/27/19 00:00 Dose: 5,000 units Ceftriaxone Sodium/Dextrose 1 (gm/ Premix) 50 mls @ 100 mls/hr IV Q24H [facility] Last Admin: 08/26/19 08:24 Dose: 100 mls/hr Lactated Ringer's (Ringers, Lactated) 1,000 mls @ 100 mls/hr IV ASDIRECTED [facility] Last Admin: 08/26/19 19:09 Dose: 100 mls/hr Azithromycin 500 mg/ Sodium (Chloride) 250 mls @ 250 mls/hr IV Q24H [facility] Levothyroxine Sodium (Levothyroxine) 25 mcg PO DAILY@0700 [facility] Last Admin: 08/27/19 07:11 Dose: 25 mcg Morphine Sulfate (Morphine) 2 mg IVPUSH Q6H PRN PRN Reason: Pain Last Admin: 08/25/19 19:26 Dose: 2 mg Ondansetron HCl (Zofran Odt) 4 mg PO Q4H PRN PRN Reason: nausea, able to take PO Ondansetron HCl (Zofran) 4 mg IVPUSH Q4H PRN PRN Reason: Nausea Discontinued Medications Hydrochlorothiazide (Hydrochlorothiazide) 25 mg PO DAILY [facility] Sodium Chloride (Normal Saline) 500 mls @ 500 mls/hr IV .BOLUS [facility] Last Admin: 08/25/19 14:14 Dose: 500 mls/hr Sodium Chloride (Normal Saline) 1,000 mls @ 999 mls/hr IV ASDIRECTED [facility] Last Admin: 08/25/19 15:26 Dose: 999 mls/hr Azithromycin 500 mg/ Sodium (Chloride) 250 mls @ 250 mls/hr IV ONETIME [facility] Last Admin: 08/26/19 09:58 Dose: 250 mls/hr Ceftriaxone Sodium 1 gm/ (Sodium Chloride) 50 mls @ 100 mls/hr IV ONETIME ONE Stop: 08/25/19 16:11 Last Admin: 08/25/19 15:52 Dose: 100 mls/hr Azithromycin 500 mg/ Sodium (Chloride) 250 mls @ 250 mls/hr IV DAILY [facility] Last Admin: 08/26/19 10:07 Dose: 250 mls/hr Losartan Potassium (Cozaar) 100 mg PO DAILY [facility] Non-Formulary Medication (Losartan/Hydrochlorothiazide [Losartan-Hctz 100-25 Mg] ) 1 tab PO DAILY [facility] - Exam General: Alert, Oriented, Cooperative, No Acute Distress Lungs: Clear to Auscultation, Normal Respiratory Effort Cardiovascular: Regular Rate, Regular Rhythm GI/Abdominal Exam: Normal Bowel Sounds, Soft, Non-Tender, No Distention Extremities: Normal Inspection, No Pedal Edema Sepsis Event Note - Evaluation Sepsis Screening Result: No Definite Risk - Focused Exam Vital Signs: Vital Signs Temp Pulse Resp BP Pulse Ox 08/27/19 07:00 97.8 F 74 16 151/67 H 93 L 08/27/19 03:00 98.5 F 77 18 154/70 H 92 L 08/26/19 23:00 98.6 F 73 16 150/66 H 94 L Date Exam was Performed: 08/27/19 Time Exam was Performed: 11:06 - Problem List Review Problem List Initiated/Reviewed/Updated: Yes - My Orders Last 24 Hours: My Active Orders 08/26/19 09:00 atorvaSTATin [Lipitor] 20 mg PO DAILY cefTRIAXone [Rocephin in Dextrose,Iso-Osm 1 GM/50 ML] 1 gm Premix Bag 1 bag IV Q24H 08/26/19 09:17 Isolation [COMM] Routine 08/26/19 09:40 CORONAVIRUS (COVID-19) PCR [MREF] Stat 08/27/19 09:30 Azithromycin [Zithromax] 500 mg Sodium Chloride 0.9% [Normal Saline (AdvBag)] 250 ml IV Q24H 08/28/19 05:11 CBC WITH AUTO DIFF [HEME] AM COMPREHENSIVE METABOLIC PN,CMP [CHEM] AM - Plan Plan:: Assessment and Plan: 1. Community acquired pneumonia: - CXR showed RLL density. Continue IV ceftriaxone and azithromycin. Leukocytosis resolved. Blood cultures negative. 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 Son was in direct contact with patient 4 days ago. COVID19 test pending. Influenza negative. 2. Thoracic and lumbar back pain s/p fall: - Thoracic x-ray showed compression deformities of T11 and L1. Lumbar x-ray showed mild endplate compression deformity at L2 and L3, slight anterior wedge deformity at L1 and moderate anterior wedge deformity at T11. Per radiology, it is uncertain if findings are acute or chronic and MRI needed for further aging. Recommend MRI in the outpatient setting. IV morphine and PO tylenol for pain. Avoid NSAID's in setting of #3. - Continue PT and evaluate for lumbar back brace. 3. ROSARIO, improving: - FeNA 0.6% indicating pre-renal azotemia likely secondary to dehydration. Creatinine 1.3 today. Discontinue Chappell catheter and IV fluids. Encourage oral hydration at least 2 L per day. 4. Past medical history of HTN, hyperlipidemia and hypothyroidism: - Resume home medications. 5. DVT prophylaxis: heparin. 6. Per social work, patient will be going to [facility] once ready for discharge. <Aubree Rajput - Last Filed: 09/07/19 15:14> - Patient Data Vitals - Most Recent: Last Vital Signs Temp 36.7 C 08/30/19 12:00 Pulse 75 08/30/19 12:00 Resp 16 08/30/19 12:00 BP 138/62 08/30/19 12:00 Pulse Ox 92 L 08/30/19 12:00 Med Orders - Current: Current Medications Discontinued Medications Acetaminophen (Tylenol) 650 mg PO Q4H PRN PRN Reason: Pain (Mild 1-3)/fever Last Admin: 08/30/19 05:24 Dose: 650 mg Atorvastatin Calcium (Lipitor) 20 mg PO DAILY [facility] Last Admin: 08/30/19 09:41 Dose: 20 mg Azithromycin (Zithromax) 500 mg PO Q24H [facility] Last Admin: 08/30/19 09:40 Dose: 500 mg Calcium Carbonate (Caltrate 600+D 1500 Mg-400 Units) 1 tab PO DAILY [facility] Last Admin: 08/30/19 09:40 Dose: 1 tab HCTZ/Losartan Potassium (Hyzaar 50-12.5 Mg) 2 tab PO DAILY [facility] Last Admin: 08/30/19 11:42 Dose: Not Given Heparin Sodium (Porcine) (Heparin Sodium) 5,000 units SUBCUT Q8H [facility] Last Admin: 08/29/19 17:23 Dose: Not Given Hydrochlorothiazide (Hydrochlorothiazide) 25 mg PO DAILY [facility] Hydrochlorothiazide (Hydrochlorothiazide) 25 mg PO DAILY [facility] Last Admin: 08/30/19 11:20 Dose: 25 mg Sodium Chloride (Normal Saline) 500 mls @ 500 mls/hr IV .BOLUS [facility] Last Admin: 08/25/19 14:14 Dose: 500 mls/hr Sodium Chloride (Normal Saline) 1,000 mls @ 999 mls/hr IV ASDIRECTED [facility] Last Admin: 08/25/19 15:26 Dose: 999 mls/hr Azithromycin 500 mg/ Sodium (Chloride) 250 mls @ 250 mls/hr IV ONETIME [facility] Last Admin: 08/26/19 09:58 Dose: 250 mls/hr Ceftriaxone Sodium 1 gm/ (Sodium Chloride) 50 mls @ 100 mls/hr IV ONETIME ONE Stop: 08/25/19 16:11 Last Admin: 08/25/19 15:52 Dose: 100 mls/hr Azithromycin 500 mg/ Sodium (Chloride) 250 mls @ 250 mls/hr IV DAILY [facility] Last Admin: 08/26/19 10:07 Dose: 250 mls/hr Ceftriaxone Sodium/Dextrose 1 (gm/ Premix) 50 mls @ 100 mls/hr IV Q24H [facility] Last Admin: 08/30/19 09:49 Dose: 100 mls/hr Lactated Ringer's (Ringers, Lactated) 1,000 mls @ 100 mls/hr IV ASDIRECTED [facility] Last Admin: 08/27/19 09:40 Dose: 100 mls/hr Azithromycin 500 mg/ Sodium (Chloride) 250 mls @ 250 mls/hr IV Q24H [facility] Last Admin: 08/29/19 09:54 Dose: 250 mls/hr Ketorolac Tromethamine (Toradol) 30 mg IVPUSH ONETIME ONE Stop: 08/30/19 10:52 Last Admin: 08/30/19 11:30 Dose: 30 mg Levothyroxine Sodium (Levothyroxine) 25 mcg PO DAILY@0700 [facility] Last Admin: 08/30/19 06:46 Dose: 25 mcg Lidocaine (Lidoderm 5%) 700 mg TOP DAILY [facility] Last Admin: 08/30/19 11:21 Dose: 700 mg Losartan Potassium (Cozaar) 100 mg PO DAILY [facility] Losartan Potassium (Cozaar) 100 mg PO DAILY [facility] Last Admin: 08/30/19 11:20 Dose: 100 mg Morphine Sulfate (Morphine) 2 mg IVPUSH Q6H PRN PRN Reason: Pain Last Admin: 08/25/19 19:26 Dose: 2 mg Morphine Sulfate (Morphine) 1 mg IVPUSH Q6H PRN PRN Reason: Pain Last Admin: 08/29/19 04:48 Dose: 1 mg Morphine Sulfate (Morphine) 2 mg IVPUSH ONETIME ONE Stop: 08/30/19 06:25 Last Admin: 08/30/19 06:44 Dose: 2 mg Non-Formulary Medication (Losartan/Hydrochlorothiazide [Losartan-Hctz 100-25 Mg] ) 1 tab PO DAILY [facility] Ondansetron HCl (Zofran Odt) 4 mg PO Q4H PRN PRN Reason: nausea, able to take PO Ondansetron HCl (Zofran) 4 mg IVPUSH Q4H PRN PRN Reason: Nausea Last Admin: 08/30/19 06:00 Dose: 4 mg Oxycodone HCl (Oxycodone) 5 mg PO Q8H PRN PRN Reason: Pain Last Admin: 08/30/19 09:39 Dose: 5 mg Oxycodone HCl (Oxycodone) 5 mg PO Q6H PRN PRN Reason: Pain - Problem List & Annotations (1) Acute renal injury SNOMED Code(s): 25738823, 49693487 Code(s): N17.9 - ACUTE KIDNEY FAILURE, UNSPECIFIED Status: Acute (2) Dehydration SNOMED Code(s): 71176386 Code(s): E86.0 - DEHYDRATION Status: Acute (3) Pneumonia involving right lung SNOMED Code(s): 210448889 Code(s): J18.9 - PNEUMONIA, UNSPECIFIED ORGANISM Status: Acute Qualifiers: Pneumonia type: due to unspecified organism Lung location: lower lobe of lung Qualified Code(s): J18.9 - Pneumonia, unspecified organism (4) Fracture of radius and ulna SNOMED Code(s): 82990519 Code(s): S52.90XA - UNSP FRACTURE OF UNSP FOREARM, INIT FOR CLOS FX; S52.209A - UNSP FRACTURE OF SHAFT OF UNSP ULNA, INIT FOR CLOS FX Status: Acute - Plan Plan:: Patient was seen and examined by me along with the resident. Agree with the above outlined management plan.
[2019-08-27] MEDS: atorvaSTATin 20 MG Tab PO SCH (08:24)
[2019-08-27] MEDS: Heparin Sodium 5,000 Units/ML Vial SUBCUT SCH ×3 (08:24→16:28)
[2019-08-27] MEDS: cefTRIAXone 1 GM in Premix Bag 1 BAG IV SCH (08:29)
[2019-08-27] MEDS: Azithromycin 500 MG in Sodium Chloride 0.9% 250 ML IV SCH (09:39)
[2019-08-27] MEDS: Lactated Ringers 1,000 ML IV SCH (09:40)
[2019-08-27] MEDS: Calcium Carbonate/Vitamin D3 1500 MG-400 Units Tab PO SCH (10:42)
[2019-08-27] MEDS: Morphine 2 MG/ML SYRINGE IVPUSH PRN (10:44)
[2019-08-28] MEDS: Heparin Sodium 5,000 Units/ML Vial SUBCUT SCH ×3 (01:25→17:12)
[2019-08-28] MEDS: Levothyroxine 25 MCG Tab PO SCH (06:49)
[2019-08-28 07:18] LABS: CARBON DIOXIDE,CO2 28.9 mmol/L (21.0-32.0); POTASSIUM,K 3.5 mmol/L (3.5-5.1)
--- NOTE | 2019-08-28 09:09 | PCM.PN ---
<Luciano Dupont M - Last Filed: 08/28/19 12:29> - General Info Date of Service: 08/28/19 Subjective Update: No complaints at bedside this morning. Reports back pain is not that bad today. Has been urinating and having bowel movement. Worked with PT yesterday. - Patient Data Vitals - Most Recent: Last Vital Signs Temp 97.5 F 08/28/19 08:00 Pulse 70 08/28/19 08:00 Resp 17 08/28/19 08:00 BP 155/67 H 08/28/19 08:00 Pulse Ox 96 08/28/19 08:00 Weight - Most Recent: 61.689 kg I&O - Last 24 Hours: Intake & Output 08/27/19 08/28/19 08/28/19 22:59 06:59 14:59 Intake Total 740 350 Output Total 500 500 Balance 240 -150 Lab Results Last 24 Hours: Laboratory Results - last 24 hr 08/28/19 08/28/19 Range/Units 06:35 06:35 WBC 7.22 (4.0-11.0) K/uL RBC 3.22 L (4.30-5.90) M/uL Hgb 10.1 L (12.0-16.0) g/dL Hct 30.1 L (36.0-46.0) % MCV 93.5 (80.0-98.0) fL MCH 31.4 (27.0-32.0) pg MCHC 33.6 (31.0-37.0) g/dL RDW Std Deviation 44.7 (28.0-62.0) fl RDW Coeff of [place] 13 (11.0-15.0) % Plt Count 223 (150-400) K/uL MPV 9.80 (7.40-12.00) fL Neut % (Auto) 79.3 (48.0-80.0) % Lymph % (Auto) 10.5 L (16.0-40.0) % [place] % (Auto) 9.8 (0.0-15.0) % Eos % (Auto) 0.3 (0.0-7.0) % Baso % (Auto) 0.1 (0.0-1.5) % Neut # (Auto) 5.7 (1.4-5.7) K/uL Lymph # (Auto) 0.8 (0.6-2.4) K/uL [place] # (Auto) 0.7 (0.0-0.8) K/uL Eos # (Auto) 0.0 (0.0-0.7) K/uL Baso # (Auto) 0.0 (0.0-0.1) K/uL Nucleated RBC % 0.0 /100WBC Nucleated RBCs # 0 K/uL Sodium 138 (136-145) mmol/L Potassium 3.5 (3.5-5.1) mmol/L Chloride 102 (98-107) mmol/L Carbon Dioxide 28.9 (21.0-32.0) mmol/L BUN 21 H (7.0-18.0) mg/dL Creatinine 1.1 H (0.6-1.0) mg/dL Est Cr Clr Drug Dosing 36.91 mL/min Estimated GFR (MDRD) 47.6 ml/min Glucose 82 (74-106) mg/dL Calcium 8.2 L (8.5-10.1) mg/dL Total Bilirubin 0.5 (0.2-1.0) mg/dL AST 26 (15-37) IU/L ALT 13 L (14-63) IU/L Alkaline Phosphatase 91 (46-116) U/L Total Protein 5.5 L (6.4-8.2) g/dL Albumin 2.1 L (3.4-5.0) g/dL Globulin 3.4 (2.6-4.0) g/dL Albumin/Globulin Ratio 0.6 L (0.9-1.6) [place] Results Last 24 Hours: Microbiology 08/25/19 16:03 Aerobic Blood Culture - Preliminary Blood - Venous - Lab Draw NO GROWTH AFTER 2 DAYS Anaerobic Blood Culture - Final 08/25/19 15:50 Aerobic Blood Culture - Preliminary Blood - Venous NO GROWTH AFTER 2 DAYS Anaerobic Blood Culture - Final 08/26/19 09:40 Coronavirus RNA (PCR) - Final Nasopharyngeal Swab Med Orders - Current: Current Medications Acetaminophen (Tylenol) 650 mg PO Q4H PRN PRN Reason: Pain (Mild 1-3)/fever Last Admin: 08/25/19 18:34 Dose: 650 mg Atorvastatin Calcium (Lipitor) 20 mg PO DAILY [facility] Last Admin: 08/27/19 08:24 Dose: 20 mg Calcium Carbonate (Caltrate 600+D 1500 Mg-400 Units) 1 tab PO DAILY [facility] Last Admin: 08/27/19 10:42 Dose: 1 tab Heparin Sodium (Porcine) (Heparin Sodium) 5,000 units SUBCUT Q8H [facility] Last Admin: 08/28/19 01:25 Dose: 5,000 units Ceftriaxone Sodium/Dextrose 1 (gm/ Premix) 50 mls @ 100 mls/hr IV Q24H [facility] Last Admin: 08/27/19 08:29 Dose: 100 mls/hr Azithromycin 500 mg/ Sodium (Chloride) 250 mls @ 250 mls/hr IV Q24H [facility] Last Admin: 08/27/19 09:39 Dose: 250 mls/hr Levothyroxine Sodium (Levothyroxine) 25 mcg PO DAILY@0700 [facility] Last Admin: 08/28/19 06:49 Dose: 25 mcg Morphine Sulfate (Morphine) 1 mg IVPUSH Q6H PRN PRN Reason: Pain Last Admin: 08/27/19 10:44 Dose: 1 mg Ondansetron HCl (Zofran Odt) 4 mg PO Q4H PRN PRN Reason: nausea, able to take PO Ondansetron HCl (Zofran) 4 mg IVPUSH Q4H PRN PRN Reason: Nausea Discontinued Medications Hydrochlorothiazide (Hydrochlorothiazide) 25 mg PO DAILY [facility] Sodium Chloride (Normal Saline) 500 mls @ 500 mls/hr IV .BOLUS [facility] Last Admin: 08/25/19 14:14 Dose: 500 mls/hr Sodium Chloride (Normal Saline) 1,000 mls @ 999 mls/hr IV ASDIRECTED [facility] Last Admin: 08/25/19 15:26 Dose: 999 mls/hr Azithromycin 500 mg/ Sodium (Chloride) 250 mls @ 250 mls/hr IV ONETIME [facility] Last Admin: 08/26/19 09:58 Dose: 250 mls/hr Ceftriaxone Sodium 1 gm/ (Sodium Chloride) 50 mls @ 100 mls/hr IV ONETIME ONE Stop: 08/25/19 16:11 Last Admin: 08/25/19 15:52 Dose: 100 mls/hr Azithromycin 500 mg/ Sodium (Chloride) 250 mls @ 250 mls/hr IV DAILY [facility] Last Admin: 03/19/20 10:07 Dose: 250 mls/hr Lactated Ringer's (Ringers, Lactated) 1,000 mls @ 100 mls/hr IV ASDIRECTED [facility] Last Admin: 08/27/19 09:40 Dose: 100 mls/hr Losartan Potassium (Cozaar) 100 mg PO DAILY [facility] Morphine Sulfate (Morphine) 2 mg IVPUSH Q6H PRN PRN Reason: Pain Last Admin: 08/25/19 19:26 Dose: 2 mg Non-Formulary Medication (Losartan/Hydrochlorothiazide [Losartan-Hctz 100-25 Mg] ) 1 tab PO DAILY [facility] - Exam General: Alert, Oriented, Cooperative, No Acute Distress Lungs: Clear to Auscultation, Normal Respiratory Effort Cardiovascular: Regular Rate, Regular Rhythm GI/Abdominal Exam: Normal Bowel Sounds, Soft, Non-Tender, No Distention Extremities: Normal Inspection, No Pedal Edema Peripheral Pulses: 2+: Radial (L), Radial (R) Skin: Warm, Dry, Intact Sepsis Event Note - Evaluation Sepsis Screening Result: No Definite Risk - Focused Exam Vital Signs: Vital Signs Temp Pulse Resp BP Pulse Ox 08/28/19 08:00 97.5 F 70 17 155/67 H 96 08/28/19 04:05 96.6 F L 82 16 147/69 H 94 L 08/28/19 00:00 97.7 F 70 14 152/63 H 94 L Date Exam was Performed: 08/28/19 Time Exam was Performed: 12:29 - Problem List Review Problem List Initiated/Reviewed/Updated: Yes - My Orders Last 24 Hours: My Active Orders 08/27/19 09:30 Azithromycin [Zithromax] 500 mg Sodium Chloride 0.9% [Normal Saline (AdvBag)] 250 ml IV Q24H - Plan Plan:: Assessment and Plan: 1. Community acquired pneumonia: - CXR showed RLL density. Continue IV ceftriaxone and azithromycin. Blood cultures negative. COVID19 test negative. 2. Thoracic and lumbar back pain s/p fall: - Thoracic x-ray showed compression deformities of T11 and L1. Lumbar x-ray showed mild endplate compression deformity at L2 and L3, slight anterior wedge deformity at L1 and moderate anterior wedge deformity at T11. Per radiology, it is uncertain if findings are acute or chronic and MRI needed for further aging. Recommend MRI in the outpatient setting. IV morphine and PO tylenol for pain. Avoid NSAID's in setting of #3. - Per physical therapy, patient would benefit from hyperextension brace. 3. Right hip pain: - Patient complaining of right hip pain during PT treatment yesterday. Will order right hip x-ray. 4. ROSARIO, improving: - Creatinine 1.1 today. Continue to encourage oral hydration at least 2 L per day. 5. Past medical history of HTN, hyperlipidemia and hypothyroidism: - Resume home medications. 6. DVT prophylaxis: heparin. 7. Per social work, patient will be going to [facility] once ready for discharge. <Aubree Rajput - Last Filed: 09/07/19 15:15> - Patient Data Vitals - Most Recent: Last Vital Signs Temp 36.7 C 08/30/19 12:00 Pulse 75 08/30/19 12:00 Resp 16 08/30/19 12:00 BP 138/62 08/30/19 12:00 Pulse Ox 92 L 08/30/19 12:00 Med Orders - Current: Current Medications Discontinued Medications Acetaminophen (Tylenol) 650 mg PO Q4H PRN PRN Reason: Pain (Mild 1-3)/fever Last Admin: 08/30/19 05:24 Dose: 650 mg Atorvastatin Calcium (Lipitor) 20 mg PO DAILY [facility] Last Admin: 08/30/19 09:41 Dose: 20 mg Azithromycin (Zithromax) 500 mg PO Q24H [facility] Last Admin: 08/30/19 09:40 Dose: 500 mg Calcium Carbonate (Caltrate 600+D 1500 Mg-400 Units) 1 tab PO DAILY [facility] Last Admin: 08/30/19 09:40 Dose: 1 tab HCTZ/Losartan Potassium (Hyzaar 50-12.5 Mg) 2 tab PO DAILY [facility] Last Admin: 08/30/19 11:42 Dose: Not Given Heparin Sodium (Porcine) (Heparin Sodium) 5,000 units SUBCUT Q8H [facility] Last Admin: 08/29/19 17:23 Dose: Not Given Hydrochlorothiazide (Hydrochlorothiazide) 25 mg PO DAILY [facility] Hydrochlorothiazide (Hydrochlorothiazide) 25 mg PO DAILY [facility] Last Admin: 08/30/19 11:20 Dose: 25 mg Sodium Chloride (Normal Saline) 500 mls @ 500 mls/hr IV .BOLUS [facility] Last Admin: 08/25/19 14:14 Dose: 500 mls/hr Sodium Chloride (Normal Saline) 1,000 mls @ 999 mls/hr IV ASDIRECTED [facility] Last Admin: 08/25/19 15:26 Dose: 999 mls/hr Azithromycin 500 mg/ Sodium (Chloride) 250 mls @ 250 mls/hr IV ONETIME [facility] Last Admin: 08/26/19 09:58 Dose: 250 mls/hr Ceftriaxone Sodium 1 gm/ (Sodium Chloride) 50 mls @ 100 mls/hr IV ONETIME ONE Stop: 08/25/19 16:11 Last Admin: 08/25/19 15:52 Dose: 100 mls/hr Azithromycin 500 mg/ Sodium (Chloride) 250 mls @ 250 mls/hr IV DAILY [facility] Last Admin: 08/26/19 10:07 Dose: 250 mls/hr Ceftriaxone Sodium/Dextrose 1 (gm/ Premix) 50 mls @ 100 mls/hr IV Q24H [facility] Last Admin: 08/30/19 09:49 Dose: 100 mls/hr Lactated Ringer's (Ringers, Lactated) 1,000 mls @ 100 mls/hr IV ASDIRECTED [facility] Last Admin: 08/27/19 09:40 Dose: 100 mls/hr Azithromycin 500 mg/ Sodium (Chloride) 250 mls @ 250 mls/hr IV Q24H [facility] Last Admin: 08/29/19 09:54 Dose: 250 mls/hr Ketorolac Tromethamine (Toradol) 30 mg IVPUSH ONETIME ONE Stop: 08/30/19 10:52 Last Admin: 08/30/19 11:30 Dose: 30 mg Levothyroxine Sodium (Levothyroxine) 25 mcg PO DAILY@0700 [facility] Last Admin: 08/30/19 06:46 Dose: 25 mcg Lidocaine (Lidoderm 5%) 700 mg TOP DAILY [facility] Last Admin: 08/30/19 11:21 Dose: 700 mg Losartan Potassium (Cozaar) 100 mg PO DAILY [facility] Losartan Potassium (Cozaar) 100 mg PO DAILY [facility] Last Admin: 08/30/19 11:20 Dose: 100 mg Morphine Sulfate (Morphine) 2 mg IVPUSH Q6H PRN PRN Reason: Pain Last Admin: 08/25/19 19:26 Dose: 2 mg Morphine Sulfate (Morphine) 1 mg IVPUSH Q6H PRN PRN Reason: Pain Last Admin: 08/29/19 04:48 Dose: 1 mg Morphine Sulfate (Morphine) 2 mg IVPUSH ONETIME ONE Stop: 08/30/19 06:25 Last Admin: 08/30/19 06:44 Dose: 2 mg Non-Formulary Medication (Losartan/Hydrochlorothiazide [Losartan-Hctz 100-25 Mg] ) 1 tab PO DAILY ARLYN Ondansetron HCl (Zofran Odt) 4 mg PO Q4H PRN PRN Reason: nausea, able to take PO Ondansetron HCl (Zofran) 4 mg IVPUSH Q4H PRN PRN Reason: Nausea Last Admin: 08/30/19 06:00 Dose: 4 mg Oxycodone HCl (Oxycodone) 5 mg PO Q8H PRN PRN Reason: Pain Last Admin: 08/30/19 09:39 Dose: 5 mg Oxycodone HCl (Oxycodone) 5 mg PO Q6H PRN PRN Reason: Pain - Problem List & Annotations (1) Acute renal injury SNOMED Code(s): 95793667, 76907152 Code(s): N17.9 - ACUTE KIDNEY FAILURE, UNSPECIFIED Status: Acute (2) Dehydration SNOMED Code(s): 37324395 Code(s): E86.0 - DEHYDRATION Status: Acute (3) Pneumonia involving right lung SNOMED Code(s): 454568645 Code(s): J18.9 - PNEUMONIA, UNSPECIFIED ORGANISM Status: Acute Qualifiers: Pneumonia type: due to unspecified organism Lung location: lower lobe of lung Qualified Code(s): J18.9 - Pneumonia, unspecified organism (4) Fracture of radius and ulna SNOMED Code(s): 94504201 Code(s): S52.90XA - UNSP FRACTURE OF UNSP FOREARM, INIT FOR CLOS FX; S52.209A - UNSP FRACTURE OF SHAFT OF UNSP ULNA, INIT FOR CLOS FX Status: Acute - Plan Plan:: Patient was seen and examined by me along with the resident. Agree with the above outlined management plan.
[2019-08-28] MEDS: cefTRIAXone 1 GM in Premix Bag 1 BAG IV SCH (09:15)
[2019-08-28] MEDS: Calcium Carbonate/Vitamin D3 1500 MG-400 Units Tab PO SCH (09:15)
[2019-08-28] MEDS: atorvaSTATin 20 MG Tab PO SCH (09:15)
[2019-08-28] MEDS: Morphine 2 MG/ML SYRINGE IVPUSH PRN (09:52)
[2019-08-28] MEDS: Azithromycin 500 MG in Sodium Chloride 0.9% 250 ML IV SCH (11:21)
[2019-08-28] MEDS: Hydrochlorothiazide/Losartan 12.5-50 mg Tab PO SCH (12:58)
--- NOTE | 2019-08-28 13:45 | CR ---
INDICATION: Right hip pain. COMPARISON: None. TECHNIQUE: Pelvis single view, right hip single-view. FINDINGS: No acute fracture. Alignment is within normal limits. Mild bilateral hip joint space narrowing. Chondrocalcinosis about both hips. Lower lumbar spine degenerative change. Bones are demineralized. IMPRESSION: No acute osseous abnormality. Degenerative changes as above. Dictated by Clifford Rivera MD @ Aug 28 2019 1:39PM Signed by Dr. Clifford Rivera @ Aug 28 2019 1:44PM
[2019-08-29] MEDS: Heparin Sodium 5,000 Units/ML Vial SUBCUT SCH ×3 (00:31→17:23)
[2019-08-29] MEDS: Morphine 2 MG/ML SYRINGE IVPUSH PRN (04:48)
[2019-08-29] MEDS: Levothyroxine 25 MCG Tab PO SCH (06:45)
[2019-08-29 06:50] LABS: CARBON DIOXIDE,CO2 30.7 mmol/L (21.0-32.0); POTASSIUM,K 3.8 mmol/L (3.5-5.1)
[2019-08-29] MEDS: cefTRIAXone 1 GM in Premix Bag 1 BAG IV SCH (09:12)
[2019-08-29] MEDS: Calcium Carbonate/Vitamin D3 1500 MG-400 Units Tab PO SCH (09:13)
[2019-08-29] MEDS: atorvaSTATin 20 MG Tab PO SCH (09:13)
[2019-08-29] MEDS: Hydrochlorothiazide/Losartan 12.5-50 mg Tab PO SCH (09:14)
[2019-08-29] MEDS: Azithromycin 500 MG in Sodium Chloride 0.9% 250 ML IV SCH (09:54)
[2019-08-29] MEDS: Acetaminophen 325 MG Tab PO PRN ×2 (09:57→21:52)
--- NOTE | 2019-08-29 11:19 | PCM.PN ---
- General Info Date of Service: 08/29/19 Admission Dx/Problem (Free Text): Admission Diagnosis/Problem Admission Diagnosis/Problem Acute renal injury due to hypovolemia Subjective Update: No complaints at bedside this morning. Worked with PT yesterday, tolerated it well, - Review of Systems General: Denies: Fever, Weakness Pulmonary: Denies: Shortness of Breath, Pleuritic Chest Pain Cardiovascular: Denies: Chest Pain, Palpitations Gastrointestinal: Denies: Abdominal Pain, Constipation Genitourinary: Denies: Dysuria, Frequency, Burning Musculoskeletal: Reports: Back Pain, Joint Pain. Denies: Neck Pain, Shoulder Pain, Joint Swelling Skin: Denies: Cyanosis, Jaundice, Mottled Neurological: Denies: Confusion, Dizziness, Headache - Patient Data Vitals - Most Recent: Last Vital Signs Temp 37.3 C 08/29/19 08:00 Pulse 66 08/29/19 08:00 Resp 16 08/29/19 08:00 BP 138/64 08/29/19 08:00 Pulse Ox 95 08/29/19 08:00 Weight - Most Recent: 61.689 kg I&O - Last 24 Hours: Intake & Output 08/28/19 08/29/19 08/29/19 22:59 06:59 14:59 Intake Total 640 400 Balance 640 400 Lab Results Last 24 Hours: Laboratory Results - last 24 hr 08/29/19 08/29/19 Range/Units 05:50 05:50 WBC 8.45 (4.0-11.0) K/uL RBC 3.39 L (4.30-5.90) M/uL Hgb 10.5 L (12.0-16.0) g/dL Hct 31.5 L (36.0-46.0) % MCV 92.9 (80.0-98.0) fL MCH 31.0 (27.0-32.0) pg MCHC 33.3 (31.0-37.0) g/dL RDW Std Deviation 43.8 (28.0-62.0) fl RDW Coeff of [place] 13 (11.0-15.0) % Plt Count 258 (150-400) K/uL MPV 10.80 (7.40-12.00) fL Neut % (Auto) 76.8 (48.0-80.0) % Lymph % (Auto) 13.8 L (16.0-40.0) % [place] % (Auto) 7.3 (0.0-15.0) % Eos % (Auto) 1.9 (0.0-7.0) % Baso % (Auto) 0.2 (0.0-1.5) % Neut # (Auto) 6.5 H (1.4-5.7) K/uL Lymph # (Auto) 1.2 (0.6-2.4) K/uL [place] # (Auto) 0.6 (0.0-0.8) K/uL Eos # (Auto) 0.2 (0.0-0.7) K/uL Baso # (Auto) 0.0 (0.0-0.1) K/uL Nucleated RBC % 0.0 /100WBC Nucleated RBCs # 0 K/uL Sodium 135 L (136-145) mmol/L Potassium 3.8 (3.5-5.1) mmol/L Chloride 99 (98-107) mmol/L Carbon Dioxide 30.7 (21.0-32.0) mmol/L BUN 21 H (7.0-18.0) mg/dL Creatinine 1.0 (0.6-1.0) mg/dL Est Cr Clr Drug Dosing 40.60 mL/min Estimated GFR (MDRD) 53.1 ml/min Glucose 93 (74-106) mg/dL Calcium 8.1 L (8.5-10.1) mg/dL Total Bilirubin 0.4 (0.2-1.0) mg/dL AST 27 (15-37) IU/L ALT 17 (14-63) IU/L Alkaline Phosphatase 109 (46-116) U/L Total Protein 5.6 L (6.4-8.2) g/dL Albumin 2.1 L (3.4-5.0) g/dL Globulin 3.5 (2.6-4.0) g/dL Albumin/Globulin Ratio 0.6 L (0.9-1.6) [place] Results Last 24 Hours: Microbiology 08/25/19 16:03 Aerobic Blood Culture - Preliminary Blood - Venous - Lab Draw NO GROWTH AFTER 3 DAYS Anaerobic Blood Culture - Final 08/25/19 15:50 Aerobic Blood Culture - Preliminary Blood - Venous NO GROWTH AFTER 3 DAYS Anaerobic Blood Culture - Final Med Orders - Current: Current Medications Acetaminophen (Tylenol) 650 mg PO Q4H PRN PRN Reason: Pain (Mild 1-3)/fever Last Admin: 08/29/19 09:57 Dose: 650 mg Atorvastatin Calcium (Lipitor) 20 mg PO DAILY [facility] Last Admin: 08/29/19 09:13 Dose: 20 mg Calcium Carbonate (Caltrate 600+D 1500 Mg-400 Units) 1 tab PO DAILY [facility] Last Admin: 08/29/19 09:13 Dose: 1 tab HCTZ/Losartan Potassium (Hyzaar 50-12.5 Mg) 2 tab PO DAILY [facility] Last Admin: 08/29/19 09:14 Dose: 2 tab Heparin Sodium (Porcine) (Heparin Sodium) 5,000 units SUBCUT Q8H [facility] Last Admin: 08/29/19 09:53 Dose: Not Given Ceftriaxone Sodium/Dextrose 1 (gm/ Premix) 50 mls @ 100 mls/hr IV Q24H [facility] Last Admin: 08/29/19 09:12 Dose: 100 mls/hr Azithromycin 500 mg/ Sodium (Chloride) 250 mls @ 250 mls/hr IV Q24H [facility] Last Admin: 08/29/19 09:54 Dose: 250 mls/hr Levothyroxine Sodium (Levothyroxine) 25 mcg PO DAILY@0700 [facility] Last Admin: 08/29/19 06:45 Dose: 25 mcg Morphine Sulfate (Morphine) 1 mg IVPUSH Q6H PRN PRN Reason: Pain Last Admin: 08/29/19 04:48 Dose: 1 mg Ondansetron HCl (Zofran Odt) 4 mg PO Q4H PRN PRN Reason: nausea, able to take PO Ondansetron HCl (Zofran) 4 mg IVPUSH Q4H PRN PRN Reason: Nausea Discontinued Medications Hydrochlorothiazide (Hydrochlorothiazide) 25 mg PO DAILY [facility] Sodium Chloride (Normal Saline) 500 mls @ 500 mls/hr IV .BOLUS [facility] Last Admin: 08/25/19 14:14 Dose: 500 mls/hr Sodium Chloride (Normal Saline) 1,000 mls @ 999 mls/hr IV ASDIRECTED [facility] Last Admin: 08/25/19 15:26 Dose: 999 mls/hr Azithromycin 500 mg/ Sodium (Chloride) 250 mls @ 250 mls/hr IV ONETIME [facility] Last Admin: 08/26/19 09:58 Dose: 250 mls/hr Ceftriaxone Sodium 1 gm/ (Sodium Chloride) 50 mls @ 100 mls/hr IV ONETIME ONE Stop: 08/25/19 16:11 Last Admin: 08/25/19 15:52 Dose: 100 mls/hr Azithromycin 500 mg/ Sodium (Chloride) 250 mls @ 250 mls/hr IV DAILY [facility] Last Admin: 08/26/19 10:07 Dose: 250 mls/hr Lactated Ringer's (Ringers, Lactated) 1,000 mls @ 100 mls/hr IV ASDIRECTED [facility] Last Admin: 08/27/19 09:40 Dose: 100 mls/hr Losartan Potassium (Cozaar) 100 mg PO DAILY [facility] Morphine Sulfate (Morphine) 2 mg IVPUSH Q6H PRN PRN Reason: Pain Last Admin: 08/25/19 19:26 Dose: 2 mg Non-Formulary Medication (Losartan/Hydrochlorothiazide [Losartan-Hctz 100-25 Mg] ) 1 tab PO DAILY [facility] - Exam General: Alert, Oriented Neck: Supple, Trachea Midline Lungs: Clear to Auscultation, Normal Respiratory Effort GI/Abdominal Exam: Normal Bowel Sounds, Soft, Non-Tender Back Exam: Normal Inspection, Decreased Range of Motion, Vertebral Tenderness. No: Full Range of Motion Extremities: Normal Inspection, Normal Range of Motion Sepsis Event Note - Evaluation Sepsis Screening Result: No Definite Risk - Focused Exam Vital Signs: Vital Signs Temp Pulse Resp BP Pulse Ox 08/29/19 08:00 37.3 C 66 16 138/64 95 08/29/19 04:00 36.3 C 73 18 140/64 96 08/28/19 23:23 36.1 C 83 16 137/65 95 Date Exam was Performed: 08/29/19 Time Exam was Performed: 11:21 - Problem List & Annotations (1) Acute renal injury SNOMED Code(s): 03321260, 62444760 Code(s): N17.9 - ACUTE KIDNEY FAILURE, UNSPECIFIED Status: Acute Current Visit: Yes (2) Dehydration SNOMED Code(s): 15993133 Code(s): E86.0 - DEHYDRATION Status: Acute Current Visit: Yes (3) Pneumonia involving right lung SNOMED Code(s): 226523243 Code(s): J18.9 - PNEUMONIA, UNSPECIFIED ORGANISM Status: Acute Current Visit: Yes Qualifiers: Pneumonia type: due to unspecified organism Lung location: lower lobe of lung Qualified Code(s): J18.9 - Pneumonia, unspecified organism (4) Fracture of radius and ulna SNOMED Code(s): 11425266 Code(s): S52.90XA - UNSP FRACTURE OF UNSP FOREARM, INIT FOR CLOS FX; S52.209A - UNSP FRACTURE OF SHAFT OF UNSP ULNA, INIT FOR CLOS FX Status: Acute Current Visit: No - Problem List Review Problem List Initiated/Reviewed/Updated: Yes - Plan Plan:: Assessment and Plan: 1.CAP: Continue IV ceftriaxone and azithromycin. Blood cultures negative. COVID19 test negative. 2. Thoracic and lumbar back pain s/p fall: - Thoracic x-ray showed compression deformities of T11 and L1. Lumbar x-ray showed mild endplate compression deformity at L2 and L3, slight anterior wedge deformity at L1 and moderate anterior wedge deformity at T11. Per radiology, it is uncertain if findings are acute or chronic and MRI needed for further aging. No focal deficits, patient not interested in obtaining MRI during current visit , states she doesn't want any surgical intervention. Recommend MRI in the outpatient setting. switch to PO meds for pain control. Avoid NSAID's in setting of #3. - Per physical therapy, patient would benefit from hyperextension brace. 3. ROSARIO, Resolved: - Creatinine 1.0 today. Continue to encourage oral hydration at least 2 L per day. 4. Past medical history of HTN, hyperlipidemia and hypothyroidism: - Resume home medications. 5. DVT prophylaxis: heparin. 6. Medically stable for dc to [facility] tomorrow .
[2019-08-29] MEDS: oxyCODONE 5 MG Tab PO PRN (17:23)
[2019-08-30] MEDS: oxyCODONE 5 MG Tab PO PRN ×2 (01:21→09:39)
[2019-08-30] MEDS: Acetaminophen 325 MG Tab PO PRN (05:24)
[2019-08-30] MEDS ORDERED: Morphine 2 MG/ML SYRINGE IVPUSH ONE (06:24)
[2019-08-30] MEDS: Levothyroxine 25 MCG Tab PO SCH (06:46)
[2019-08-30] MEDS ORDERED: Azithromycin 250 MG Tab PO SCH (09:00)
[2019-08-30] MEDS: Calcium Carbonate/Vitamin D3 1500 MG-400 Units Tab PO SCH (09:40)
[2019-08-30] MEDS: atorvaSTATin 20 MG Tab PO SCH (09:41)
[2019-08-30] MEDS: cefTRIAXone 1 GM in Premix Bag 1 BAG IV SCH (09:49)
[2019-08-30] MEDS ORDERED: Losartan 50 MG Tab PO SCH (10:00)
[2019-08-30] MEDS ORDERED: Hydrochlorothiazide 25 MG Tab PO SCH (10:15)
[2019-08-30] MEDS ORDERED: oxyCODONE 5 MG Tab PO PRN (10:41)
[2019-08-30] MEDS ORDERED: Ketorolac 30 MG/ML SDV IVPUSH ONE (10:51)
[2019-08-30] MEDS ORDERED: Lidocaine 5% 700 MG Patch TOP SCH (11:00)
[2019-08-30] MEDS: Hydrochlorothiazide/Losartan 12.5-50 mg Tab PO SCH (11:42)
--- NOTE | 2019-08-30 13:15 | PCM.DCSUM1 ---
<Luciano Dupont - Last Filed: 08/30/19 13:09> Discharge Summary - Hospital Course Free Text/Narrative:: 84-year-old female admitted for community acquired pneumonia, ROSARIO, and back and right hip pain s/p fall. She has a PMH of HTN, hyperlipidemia and hypothyroidism. CT head was negative. CXR on admission showed RLL pneumonia. She was treated with IV ceftriaxone and IV azithromycin. Blood cultures were negative. Influenza and COVID19 tests were negative. For her ROSARIO, she was treated with IV fluids and her creatinine returned to normal levels. Furthermore , lumbar and thoracic x-ray showed multiple compression deformities but it was unsure if these were acute vs chronic. MRI was recommended per radiology, however, patient denied wanting MRI done at this time. Right hip x-ray was negative for fracture. Patient worked with physical therapy and a hyperextended back brace was recommended. Script for this back brace was provided. Patient was discharged with cefdinir and azithromycin for 1 more day to complete a total 5 day course. For her back pain, she was discharged on oxycodone 5 mg PO q6h prn and lidocaine patch. Patient discharged to [facility]. Her PCP Dr. Ari Mera was contacted prior to discharge. - Discharge Data Discharge Date: 08/30/19 Discharge Disposition: DC/[facility]fer to [facility] Condition: Stable - Referral to Home Health Primary Care Physician: Ari Mera MD - Patient Summary/Data Consults: Consultations 08/25/19 16:49 Consult to Physical Therapy [PT Evaluation and Treatment] [CONS] Routine - Patient Instructions Diet: Regular Diet as Tolerated Activity: As Tolerated Notify Provider of: Fever, Increased Pain, Swelling and Redness, Drainage, Nausea and/or Vomiting Other/Special Instructions: PT/OT - Discharge Plan *PRESCRIPTION DRUG MONITORING PROGRAM REVIEWED*: Yes *COPY OF PRESCRIPTION DRUG MONITORING REPORT IN PATIENT MIGUEL: Yes Prescriptions/Med Rec: Azithromycin 500 mg PO DAILY 1 Days #1 tablet Calcium Carbonate/Vitamin D3 [Caltrate 600+D 1500 MG-400 Units] 1 tab PO DAILY 7 Days #7 tablet Cefdinir 300 mg PO BID 1 Days #2 capsule Lidocaine 5% [Lidoderm 5%] 700 mg TOP DAILY 7 Days #7 patch oxyCODONE 5 mg PO Q6H PRN 7 Days #24 tablet PRN Reason: Pain Home Medications: Home Meds Losartan/Hydrochlorothiazide [Losartan-HCTZ 100-25 MG] 1 tab PO DAILY 07/31/17 [ History] atorvaSTATin [Lipitor] 20 mg PO DAILY 07/31/17 [History] Levothyroxine Sodium [Synthroid] 1 tab PO DAILY 08/25/19 [History] Azithromycin 500 mg PO DAILY 1 Days #1 tablet 08/30/19 [Rx] Calcium Carbonate/Vitamin D3 [Caltrate 600+D 1500 MG-400 Units] 1 tab PO DAILY 7 Days #7 tablet 08/30/19 [Rx] Cefdinir 300 mg PO BID 1 Days #2 capsule 08/30/19 [Rx] Lidocaine 5% [Lidoderm 5%] 700 mg TOP DAILY 7 Days #7 patch 08/30/19 [Rx] oxyCODONE 5 mg PO Q6H PRN 7 Days #24 tablet 08/30/19 [Rx] Oxygen Therapy Mode: Room Air Patient Handouts: Rhabdomyolysis Referrals: Ari Mera MD [Primary Care Provider] - - Discharge Summary/Plan Comment DC Time >30 min.: No - Patient Data Vitals - Most Recent: Last Vital Signs Temp 98.1 F 08/30/19 12:00 Pulse 75 08/30/19 12:00 Resp 16 08/30/19 12:00 BP 138/62 08/30/19 12:00 Pulse Ox 92 L 08/30/19 12:00 Weight - Most Recent: 61.689 kg I&O - Last 24 hours: Intake & Output 08/29/19 08/30/19 08/30/19 22:59 06:59 14:59 Intake Total 500 225 Output Total 544 Balance 500 -319 [place] Results - Last 24 hrs: Microbiology 08/25/19 16:03 Aerobic Blood Culture - Preliminary Blood - Venous - Lab Draw NO GROWTH AFTER 4 DAYS Anaerobic Blood Culture - Final 08/25/19 15:50 Aerobic Blood Culture - Preliminary Blood - Venous NO GROWTH AFTER 4 DAYS Anaerobic Blood Culture - Final Med Orders - Current: Current Medications Acetaminophen (Tylenol) 650 mg PO Q4H PRN PRN Reason: Pain (Mild 1-3)/fever Last Admin: 08/30/19 05:24 Dose: 650 mg Atorvastatin Calcium (Lipitor) 20 mg PO DAILY [facility] Last Admin: 08/30/19 09:41 Dose: 20 mg Azithromycin (Zithromax) 500 mg PO Q24H [facility] Last Admin: 08/30/19 09:40 Dose: 500 mg Calcium Carbonate (Caltrate 600+D 1500 Mg-400 Units) 1 tab PO DAILY [facility] Last Admin: 08/30/19 09:40 Dose: 1 tab Hydrochlorothiazide (Hydrochlorothiazide) 25 mg PO DAILY [facility] Last Admin: 08/30/19 11:20 Dose: 25 mg Ceftriaxone Sodium/Dextrose 1 (gm/ Premix) 50 mls @ 100 mls/hr IV Q24H [facility] Last Admin: 08/30/19 09:49 Dose: 100 mls/hr Levothyroxine Sodium (Levothyroxine) 25 mcg PO DAILY@0700 [facility] Last Admin: 08/30/19 06:46 Dose: 25 mcg Lidocaine (Lidoderm 5%) 700 mg TOP DAILY [facility] Last Admin: 08/30/19 11:21 Dose: 700 mg Losartan Potassium (Cozaar) 100 mg PO DAILY [facility] Last Admin: 08/30/19 11:20 Dose: 100 mg Ondansetron HCl (Zofran Odt) 4 mg PO Q4H PRN PRN Reason: nausea, able to take PO Ondansetron HCl (Zofran) 4 mg IVPUSH Q4H PRN PRN Reason: Nausea Last Admin: 08/30/19 06:00 Dose: 4 mg Oxycodone HCl (Oxycodone) 5 mg PO Q6H PRN PRN Reason: Pain Discontinued Medications HCTZ/Losartan Potassium (Hyzaar 50-12.5 Mg) 2 tab PO DAILY [facility] Last Admin: 08/30/19 11:42 Dose: Not Given Heparin Sodium (Porcine) (Heparin Sodium) 5,000 units SUBCUT Q8H [facility] Last Admin: 08/29/19 17:23 Dose: Not Given Hydrochlorothiazide (Hydrochlorothiazide) 25 mg PO DAILY [facility] Sodium Chloride (Normal Saline) 500 mls @ 500 mls/hr IV .BOLUS [facility] Last Admin: 08/25/19 14:14 Dose: 500 mls/hr Sodium Chloride (Normal Saline) 1,000 mls @ 999 mls/hr IV ASDIRECTED [facility] Last Admin: 08/25/19 15:26 Dose: 999 mls/hr Azithromycin 500 mg/ Sodium (Chloride) 250 mls @ 250 mls/hr IV ONETIME [facility] Last Admin: 08/26/19 09:58 Dose: 250 mls/hr Ceftriaxone Sodium 1 gm/ (Sodium Chloride) 50 mls @ 100 mls/hr IV ONETIME ONE Stop: 08/25/19 16:11 Last Admin: 08/25/19 15:52 Dose: 100 mls/hr Azithromycin 500 mg/ Sodium (Chloride) 250 mls @ 250 mls/hr IV DAILY [facility] Last Admin: 08/26/19 10:07 Dose: 250 mls/hr Lactated Ringer's (Ringers, Lactated) 1,000 mls @ 100 mls/hr IV ASDIRECTED [facility] Last Admin: 08/27/19 09:40 Dose: 100 mls/hr Azithromycin 500 mg/ Sodium (Chloride) 250 mls @ 250 mls/hr IV Q24H [facility] Last Admin: 08/29/19 09:54 Dose: 250 mls/hr Ketorolac Tromethamine (Toradol) 30 mg IVPUSH ONETIME ONE Stop: 08/30/19 10:52 Last Admin: 08/30/19 11:30 Dose: 30 mg Losartan Potassium (Cozaar) 100 mg PO DAILY [facility] Morphine Sulfate (Morphine) 2 mg IVPUSH Q6H PRN PRN Reason: Pain Last Admin: 08/25/19 19:26 Dose: 2 mg Morphine Sulfate (Morphine) 1 mg IVPUSH Q6H PRN PRN Reason: Pain Last Admin: 08/29/19 04:48 Dose: 1 mg Morphine Sulfate (Morphine) 2 mg IVPUSH ONETIME ONE Stop: 08/30/19 06:25 Last Admin: 08/30/19 06:44 Dose: 2 mg Non-Formulary Medication (Losartan/Hydrochlorothiazide [Losartan-Hctz 100-25 Mg] ) 1 tab PO DAILY [facility] Oxycodone HCl (Oxycodone) 5 mg PO Q8H PRN PRN Reason: Pain Last Admin: 08/30/19 09:39 Dose: 5 mg <Aubree Rajput - Last Filed: 09/07/19 15:15> Discharge Summary - Hospital Course Free Text/Narrative:: Patient was seen and examined by me along with the resident. Agree with the above outlined management plan. - Referral to Home Health Primary Care Physician: Ari Mera MD - Discharge Diagnosis/Problem(s) (1) Acute renal injury SNOMED Code(s): 97913029, 76276051 ICD Code: N17.9 - ACUTE KIDNEY FAILURE, UNSPECIFIED Status: Acute (2) Dehydration SNOMED Code(s): 68723432 ICD Code: E86.0 - DEHYDRATION Status: Acute (3) Pneumonia involving right lung SNOMED Code(s): 453148142 ICD Code: J18.9 - PNEUMONIA, UNSPECIFIED ORGANISM Status: Acute Qualifiers: Pneumonia type: due to unspecified organism Lung location: lower lobe of lung Qualified Code(s): J18.9 - Pneumonia, unspecified organism (4) Fracture of radius and ulna SNOMED Code(s): 19250946 ICD Code: S52.90XA - UNSP FRACTURE OF UNSP FOREARM, INIT FOR CLOS FX; S52.209A - UNSP FRACTURE OF SHAFT OF UNSP ULNA, INIT FOR CLOS FX Status: Acute - Patient Summary/Data Consults: Consultations 08/25/19 16:49 Consult to Physical Therapy [PT Evaluation and Treatment] [CONS] Routine - Patient Data Vitals - Most Recent: Last Vital Signs Temp 36.7 C 08/30/19 12:00 Pulse 75 08/30/19 12:00 Resp 16 08/30/19 12:00 BP 138/62 08/30/19 12:00 Pulse Ox 92 L 08/30/19 12:00 Med Orders - Current: Current Medications Discontinued Medications Acetaminophen (Tylenol) 650 mg PO Q4H PRN PRN Reason: Pain (Mild 1-3)/fever Last Admin: 08/30/19 05:24 Dose: 650 mg Atorvastatin Calcium (Lipitor) 20 mg PO DAILY [facility] Last Admin: 08/30/19 09:41 Dose: 20 mg Azithromycin (Zithromax) 500 mg PO Q24H [facility] Last Admin: 08/30/19 09:40 Dose: 500 mg Calcium Carbonate (Caltrate 600+D 1500 Mg-400 Units) 1 tab PO DAILY [facility] Last Admin: 08/30/19 09:40 Dose: 1 tab HCTZ/Losartan Potassium (Hyzaar 50-12.5 Mg) 2 tab PO DAILY [facility] Last Admin: 08/30/19 11:42 Dose: Not Given Heparin Sodium (Porcine) (Heparin Sodium) 5,000 units SUBCUT Q8H [facility] Last Admin: 08/29/19 17:23 Dose: Not Given Hydrochlorothiazide (Hydrochlorothiazide) 25 mg PO DAILY [facility] Hydrochlorothiazide (Hydrochlorothiazide) 25 mg PO DAILY [facility] Last Admin: 08/30/19 11:20 Dose: 25 mg Sodium Chloride (Normal Saline) 500 mls @ 500 mls/hr IV .BOLUS [facility] Last Admin: 08/25/19 14:14 Dose: 500 mls/hr Sodium Chloride (Normal Saline) 1,000 mls @ 999 mls/hr IV ASDIRECTED [facility] Last Admin: 08/25/19 15:26 Dose: 999 mls/hr Azithromycin 500 mg/ Sodium (Chloride) 250 mls @ 250 mls/hr IV ONETIME [facility] Last Admin: 08/26/19 09:58 Dose: 250 mls/hr Ceftriaxone Sodium 1 gm/ (Sodium Chloride) 50 mls @ 100 mls/hr IV ONETIME ONE Stop: 08/25/19 16:11 Last Admin: 08/25/19 15:52 Dose: 100 mls/hr Azithromycin 500 mg/ Sodium (Chloride) 250 mls @ 250 mls/hr IV DAILY [facility] Last Admin: 08/26/19 10:07 Dose: 250 mls/hr Ceftriaxone Sodium/Dextrose 1 (gm/ Premix) 50 mls @ 100 mls/hr IV Q24H [facility] Last Admin: 08/30/19 09:49 Dose: 100 mls/hr Lactated Ringer's (Ringers, Lactated) 1,000 mls @ 100 mls/hr IV ASDIRECTED [facility] Last Admin: 08/27/19 09:40 Dose: 100 mls/hr Azithromycin 500 mg/ Sodium (Chloride) 250 mls @ 250 mls/hr IV Q24H [facility] Last Admin: 08/29/19 09:54 Dose: 250 mls/hr Ketorolac Tromethamine (Toradol) 30 mg IVPUSH ONETIME ONE Stop: 08/30/19 10:52 Last Admin: 08/30/19 11:30 Dose: 30 mg Levothyroxine Sodium (Levothyroxine) 25 mcg PO DAILY@0700 [facility] Last Admin: 08/30/19 06:46 Dose: 25 mcg Lidocaine (Lidoderm 5%) 700 mg TOP DAILY [facility] Last Admin: 08/30/19 11:21 Dose: 700 mg Losartan Potassium (Cozaar) 100 mg PO DAILY [facility] Losartan Potassium (Cozaar) 100 mg PO DAILY [facility] Last Admin: 08/30/19 11:20 Dose: 100 mg Morphine Sulfate (Morphine) 2 mg IVPUSH Q6H PRN PRN Reason: Pain Last Admin: 08/25/19 19:26 Dose: 2 mg Morphine Sulfate (Morphine) 1 mg IVPUSH Q6H PRN PRN Reason: Pain Last Admin: 08/29/19 04:48 Dose: 1 mg Morphine Sulfate (Morphine) 2 mg IVPUSH ONETIME ONE Stop: 08/30/19 06:25 Last Admin: 08/30/19 06:44 Dose: 2 mg Non-Formulary Medication (Losartan/Hydrochlorothiazide [Losartan-Hctz 100-25 Mg] ) 1 tab PO DAILY [facility] Ondansetron HCl (Zofran Odt) 4 mg PO Q4H PRN PRN Reason: nausea, able to take PO Ondansetron HCl (Zofran) 4 mg IVPUSH Q4H PRN PRN Reason: Nausea Last Admin: 08/30/19 06:00 Dose: 4 mg Oxycodone HCl (Oxycodone) 5 mg PO Q8H PRN PRN Reason: Pain Last Admin: 08/30/19 09:39 Dose: 5 mg Oxycodone HCl (Oxycodone) 5 mg PO Q6H PRN PRN Reason: Pain
== END 2019-08-30 14:15 | DRG 194 ==
LOC: MW.ED 12:54 → MW.MS 15:52 → OBSVTOIN 08-26 10:06 → MW.MS 08-26 11:14
PROVIDERS: ADMIT Student in an Organized Health Care Education/Training Program; ATTEND Student in an Organized Health Care Education/Training Program
DX: J18.9 Pneumonia, unspecified organism (principal); N17.9 Acute kidney failure, unspecified; M54.9 Dorsalgia, unspecified; Z66 Do not resuscitate; M25.551 Pain in right hip; W19.XXXA Unspecified fall, initial encounter; I10 Essential (primary) hypertension; S09.90XA Unspecified injury of head, initial encounter; E86.0 Dehydration; M54.6 Pain in thoracic spine; M54.5 Low back pain; E78.5 Hyperlipidemia, unspecified; E03.9 Hypothyroidism, unspecified; Z79.899 Other long term (current) drug therapy; F17.210 Nicotine dependence, cigarettes, uncomplicated; F17.200 Nicotine dependence, unspecified, uncomplicated; Z79.890 Hormone replacement therapy; E78.00 Pure hypercholesterolemia, unspecified; Z90.710 Acquired absence of both cervix and uterus; M19.90 Unspecified osteoarthritis, unspecified site; G89.29 Other chronic pain; Z90.49 Acquired absence of other specified parts of digestive tract; Z20.828 Contact with and (suspected) exposure to other viral communicable diseases
CPT/HCPCS: 36415 ×2; 70450; 71045; 72070; 72100; 80053 ×2; 81001; 82550 ×2; 82570; 83605; 83735; 83880; 84300; 84484; 85025 ×2; 87040 ×2; 87804 ×2; 93005; 96361 ×3; 96365; 96366; 96367; 96372 ×2; 96375; 96376; 99285; A9270 ×3; G0378 ×2; J0456 ×2; J0696 ×2; J1644 ×3; J2270; J7030; J7040; J7050 ×3; J7120 ×2; U0002; 73501-26-RT; 73501-RT; 97110-GP; 97161-GP; 97530-GP; 99219; 99284; J1885; J2405; U0001

== ENCOUNTER 2019-12-01 07:32 | Inpatient (IN) | payer MEDICARE, BC ==
[2019-12-01] MEDS ORDERED: Sodium Chloride 0.9% 2.5 ML Syringe FLUSH PRN (07:40)
[2019-12-01] MEDS ORDERED: Sodium Chloride 0.9% 10 ML Syringe FLUSH PRN (07:40)
[2019-12-01] MEDS ORDERED: Acetaminophen 500 MG Tab PO ONE (07:40)
[2019-12-01] MEDS ORDERED: fentaNYL 50 MCG/ML SDV IVPUSH ONE (07:40)
--- NOTE | 2019-12-01 07:46 | EDM.PDOC ---
ED HPI GENERAL MEDICAL PROBLEM - General Chief Complaint: Lower Extremity Injury/Pain Stated Complaint: FALL Time Seen by Provider: 12/01/19 07:40 Source of Information: Reports: Patient, EMS History Limitations: Reports: No Limitations - History of Present Illness INITIAL COMMENTS - FREE TEXT/NARRATIVE: This patient is an 84-year-old female with a past medical history of hypert ension, hyperlipidemia, hypothyroidism presenting with injuries after a fall. She presents by ambulance. Around 3:00 in the morning, she was walking to her closet when she woke up on the ground. She does not report history of mechanical fall. She does not report any preceding chest discomfort, shortness of breath, or palpitations. She experienced pain to the right groin but was able to get up with assistance from her neighbors and get back into bed. Her pain persists through the morning, which prompted her to call the ambulance. She arrives to the emergency room complaining of pain to her right groin. She denies hitting her head or neck and denies losing consciousness. She has not on any anticoagulant medications. She does take a baby aspirin daily. Denies any pain to the head, neck, back, chest, abdomen, or extremities. Groin Pain Score (Numeric/FACES): 7 - Related Data Allergies Allergy/AdvReac Type Severity Reaction Status Date / Time No Known Allergies Allergy Verified 12/01/19 07:48 Home Meds: Home Meds Losartan/Hydrochlorothiazide [Losartan-HCTZ 100-25 MG] 1 tab PO DAILY 07/31/17 [History] atorvaSTATin [Lipitor] 20 mg PO DAILY 07/31/17 [History] Levothyroxine Sodium [Synthroid] 1 tab PO DAILY 08/25/19 [History] Aspirin 81 mg PO DAILY 12/01/19 [History] Ferrous Gluconate [Iron] 1 tab PO DAILY 12/01/19 [History] PARoxetine [Paxil] 10 mg PO DAILY 12/01/19 [History] Past Medical History HEENT History: Reports: None Cardiovascular History: Reports: Aneurysm, High Cholesterol, Hypertension Respiratory History: Reports: None Gastrointestinal History: Reports: None Genitourinary History: Reports: None ANTIQUE DEALER 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: 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: Other ANTIQUE DEALER History: hysterectomy Musculoskeletal History: Reports: Arthritis, Back Pain, Chronic Neurological History: Reports: None Psychiatric History: Reports: None Endocrine/Metabolic History: Reports: Hypothyroidism Hematologic History: Reports: None Immunologic History: Reports: None Oncologic (Cancer) History: Reports: None Dermatologic History: Reports: None - Infectious Disease History Infectious Disease History: Reports: Chicken Pox, Meningitis, Mumps - Past Surgical History Head Surgeries/Procedures: Reports: None HEENT Surgical History: Reports: None Cardiovascular Surgical History: Reports: Aneurysm Respiratory Surgical History: Reports: None GI Surgical History: Reports: Appendectomy, Cholecystectomy, Colonoscopy Female Surgical History: Reports: Hysterectomy Endocrine Surgical History: Reports: None Neurological Surgical History: Reports: None Musculoskeletal Surgical History: Reports: None Oncologic Surgical History: Reports: None Dermatological Surgical History: Reports: None Social & Family History - Family History Family Medical History: Noncontributory - Caffeine Use Caffeine Use: Reports: Coffee Caffeine Use Comment: 1 cup per day Review of Systems - Review of Systems Review Of Systems: See Below Constitutional: Denies: Chills, Fever Eyes: Denies: Blurred Vision Ears: Denies: Pain Nose: Denies: Bloody Discharge Mouth/Throat: Denies: Throat Swelling Respiratory: Denies: Shortness of Breath Cardiovascular: Denies: Chest Pain GI/Abdominal: Denies: Abdominal Pain, Nausea, Vomiting Genitourinary: Denies: Hematuria Musculoskeletal: Denies: Neck Pain, Shoulder Pain, Arm Pain, Back Pain, Hand Pain, Leg Pain, Joint Swelling, Muscle Pain Skin: Reports: Wound Neurological: Denies: Numbness, Syncope, Weakness ED EXAM, GENERAL - Physical Exam Exam: See Below Free Text/Narrative:: Vital signs reviewed. Nursing notes reviewed. Constitutional: Awake, alert, non-distressed. Head: Normocephalic, atraumatic. Eyes: EOMI, conjunctiva normal, no discharge, no scleral icterus. PERRLA 3 mm bilaterally Ears, Nose, Throat: External ears and nose normal, moist oral mucosa. No rhinorrhea or otorrhea, no sullivan sign or raccoon's eyes Neck: Supple, nontender, full range of motion Cardiovascular: 2+ radial pulses bilaterally, 2+ right DP and PT pulses, capillary refill less than 2 seconds. Pulmonary: normal work of breathing, no accessory muscle use. CTA BL Abdomen/GI: Soft, nontender, nondistended, no guarding or rigidity, no masses. Musculoskeletal: No deformities. Pain to palpation of the right hip and inguinal crease. Full passive range of motion of all extremity joints Integumentary: Appropriate color for ethnicity, warm, dry, no pallor or jaundice, no rash. Skin tears noted to the right elbow and the ulnar aspect of the right wrist. Neurologic: Alert, answering questions appropriately, normal speech, no facial droop, moving all extremities well. Sensation intact light touch in the right lower extremity. Psychiatric: Appropriate mood and affect, normal thought process. EKG INTERPRETATION EKG Interpretation Comments: 12-Lead ECG Interpretation Acquired: 7:50 AM Rhythm: Sinus rhythm Rate: 78 bpm [place]: Left axis deviation Intervals: Normal Ectopy: None Ischemic Changes: QS complexes in V1 and V2, subtle ST depression in V5 and V6 RV Strain: No obvious RV strain pattern. ST Segments/T-Waves: No notable changes Interpretation: Abnormal EKG Course - Vital Signs Text/Narrative:: 84-year-old female with injuries after a fall. Patient hemodynamically stable, afebrile, well-appearing, looks nontoxic. Differential diagnosis includes but is not limited to: Hip fracture, pelvic fracture, intra-abdominal injury, head trauma, intracranial hemorrhage, arrhythmia, anemia, cardiac syncope, electrolyte disturbance, myocardial infarction, etc. Labs show mild normocytic anemia. Normal lactate and INR. Mild hypokalemia and renal insufficiency. Negative troponin, normal CK. Normal LFTs. Head and cervical spine unremarkable. Pelvis x-ray shows an impacted subcapital fracture of the right femur. Neurovascularly intact in the right lower extremity. Given fentanyl for pain. Twelve-lead EKG shows some subtle ST segment depression in leads V5 and V6 and a biphasic T wave in lead III. Patient denies any chest discomfort or shortness of breath. Head and cervical spine CTs are negative. Patient will need to be admitted to the hospital for operative management. I spoke with the orthopedic surgeon Dr. Alva who agrees to consult and will plan for surgery later today. I also spoke with the hospitalist Dr. Tu Sagastume who agrees to admit the patient to his service. I have update the patient's sons on the patient's condition and plan for admission and surgery. She was transferred to the inpatient unit in good condition. Last Recorded V/S: Last Vital Signs Temp 36.9 C 12/01/19 07:55 Pulse 65 12/01/19 09:22 Resp 17 12/01/19 09:22 BP 154/57 H 12/01/19 09:22 Pulse Ox 100 12/01/19 09:22 - Orders/Labs/Meds Orders: Active Orders 24 hr Category Date Time Status Patient Status [ADT] Routine ADT 12/01/19 08:37 Active EKG Documentation Completion [RC] STAT Care 12/01/19 07:40 Active Pulse Oximetry [RC] ASDIRECTED Care 12/01/19 07:40 Active NPO [Nothing Per Oral Diet] [DIET] Diet 12/01/19 Lunch Active Sodium Chloride 0.9% [Saline Flush] Med 12/01/19 07:40 Active 10 ml FLUSH ASDIRECTED PRN Sodium Chloride 0.9% [Saline Flush] Med 12/01/19 07:40 Active 2.5 ml FLUSH ASDIRECTED PRN Saline Lock Insert [OM.PC] Stat Oth 12/01/19 07:40 Ordered Medication Orders Sodium Chloride (Saline Flush) 10 ml FLUSH ASDIRECTED PRN PRN Reason: Keep Vein Open Last Admin: 12/01/19 08:09 Dose: 10 ml Documented by: GENESIS Sodium Chloride (Saline Flush) 2.5 ml FLUSH ASDIRECTED PRN PRN Reason: Keep Vein Open Last Admin: 12/01/19 08:09 Dose: 2.5 ml Documented by: GENESIS Labs: Laboratory Tests 12/01/19 12/01/19 12/01/19 Range/Units 07:40 07:40 07:40 WBC 9.57 (4.0-11.0) K/uL RBC 3.44 L (4.30-5.90) M/uL Hgb 11.2 L (12.0-16.0) g/dL Hct 33.3 L (36.0-46.0) % MCV 96.8 (80.0-98.0) fL MCH 32.6 H (27.0-32.0) pg MCHC 33.6 (31.0-37.0) g/dL RDW Std Deviation 52.6 (28.0-62.0) fl RDW Coeff of [place] 15 (11.0-15.0) % Plt Count 196 (150-400) K/uL MPV 9.50 (7.40-12.00) fL Neut % (Auto) 77.0 (48.0-80.0) % Lymph % (Auto) 15.0 L (16.0-40.0) % [place] % (Auto) 7.5 (0.0-15.0) % Eos % (Auto) 0.2 (0.0-7.0) % Baso % (Auto) 0.3 (0.0-1.5) % Neut # (Auto) 7.4 H (1.4-5.7) K/uL Lymph # (Auto) 1.4 (0.6-2.4) K/uL [place] # (Auto) 0.7 (0.0-0.8) K/uL Eos # (Auto) 0.0 (0.0-0.7) K/uL Baso # (Auto) 0.0 (0.0-0.1) K/uL Nucleated RBC % 0.0 /100WBC Nucleated RBCs # 0 K/uL INR 1.02 Lactate 1.2 (0.20-2.00) mmol/L Sodium (136-145) mmol/L Potassium (3.5-5.1) mmol/L Chloride (98-107) mmol/L Carbon Dioxide (21.0-32.0) mmol/L BUN (7.0-18.0) mg/dL Creatinine (0.6-1.0) mg/dL Est Cr Clr Drug Dosing mL/min Estimated GFR (MDRD) ml/min Glucose (74-106) mg/dL Calcium (8.5-10.1) mg/dL Total Bilirubin (0.2-1.0) mg/dL AST (15-37) IU/L ALT (14-63) IU/L Alkaline Phosphatase (46-116) U/L Creatine Kinase (26-308) U/L Troponin I (0.000-0.056) ng/mL Total Protein (6.4-8.2) g/dL Albumin (3.4-5.0) g/dL Globulin (2.6-4.0) g/dL Albumin/Globulin Ratio (0.9-1.6) Blood Type Antibody Screen 12/01/19 12/01/19 Range/Units 07:40 07:40 WBC (4.0-11.0) K/uL RBC (4.30-5.90) M/uL Hgb (12.0-16.0) g/dL Hct (36.0-46.0) % MCV (80.0-98.0) fL MCH (27.0-32.0) pg MCHC (31.0-37.0) g/dL RDW Std Deviation (28.0-62.0) fl RDW Coeff of [place] (11.0-15.0) % Plt Count (150-400) K/uL MPV (7.40-12.00) fL Neut % (Auto) (48.0-80.0) % Lymph % (Auto) (16.0-40.0) % [place] % (Auto) (0.0-15.0) % Eos % (Auto) (0.0-7.0) % Baso % (Auto) (0.0-1.5) % Neut # (Auto) (1.4-5.7) K/uL Lymph # (Auto) (0.6-2.4) K/uL [place] # (Auto) (0.0-0.8) K/uL Eos # (Auto) (0.0-0.7) K/uL Baso # (Auto) (0.0-0.1) K/uL Nucleated RBC % /100WBC Nucleated RBCs # K/uL INR Lactate (0.20-2.00) mmol/L Sodium 141 (136-145) mmol/L Potassium 3.4 L (3.5-5.1) mmol/L Chloride 102 (98-107) mmol/L Carbon Dioxide 30.1 (21.0-32.0) mmol/L BUN 27 H (7.0-18.0) mg/dL Creatinine 1.4 H (0.6-1.0) mg/dL Est Cr Clr Drug Dosing 24.50 mL/min Estimated GFR (MDRD) 36.0 ml/min Glucose 121 H (74-106) mg/dL Calcium 8.8 (8.5-10.1) mg/dL Total Bilirubin 0.7 (0.2-1.0) mg/dL AST 24 (15-37) IU/L ALT 33 (14-63) IU/L Alkaline Phosphatase 73 (46-116) U/L Creatine Kinase 39 (26-308) U/L Troponin I < 0.050 (0.000-0.056) ng/mL Total Protein 6.9 (6.4-8.2) g/dL Albumin 3.5 (3.4-5.0) g/dL Globulin 3.4 (2.6-4.0) g/dL Albumin/Globulin Ratio 1.0 (0.9-1.6) Blood Type A POSITIVE Antibody Screen NEGATIVE Meds: Medications Generic Name Dose Route Start Last Admin Trade Name Freq PRN Reason Stop Dose Admin Sodium Chloride 10 ml 12/01/19 07:40 12/01/19 08:09 Saline Flush FLUSH 10 ml ASDIRECTED PRN Administration Keep Vein Open Sodium Chloride 2.5 ml 12/01/19 07:40 12/01/19 08:09 Saline Flush FLUSH 2.5 ml ASDIRECTED PRN Administration Keep Vein Open Discontinued Medications Generic Name Dose Route Start Last Admin Trade Name Freq PRN Reason Stop Dose Admin Acetaminophen 1,000 mg 12/01/19 07:40 12/01/19 08:07 Tylenol Extra Strength PO 12/01/19 07:41 1,000 mg ONETIME ONE Administration Fentanyl 25 mcg 12/01/19 07:40 12/01/19 08:07 Fentanyl IVPUSH 12/01/19 07:41 25 mcg ONETIME ONE Administration Sodium Chloride 1,000 mls @ 1,000 mls/hr 12/01/19 08:23 12/01/19 08:36 Normal Saline IV 12/01/19 09:22 1,000 mls/hr .Bolus ONE Administration Oxycodone HCl 10 mg 12/01/19 09:10 12/01/19 09:25 Oxycodone PO 12/01/19 09:11 10 mg ONETIME ONE Administration Departure - Departure Time of Disposition: 08:48 Disposition: Admitted As Inpatient 68 Condition: Good Clinical Impression: Subcapital fracture of right femur Qualifiers: Encounter type: initial encounter Fracture type: closed Qualified Code(s): S72.011A - Unspecified intracapsular fracture of right femur, initial encounter for closed fracture - Discharge Information *PRESCRIPTION DRUG MONITORING PROGRAM REVIEWED*: Not Applicable *COPY OF PRESCRIPTION DRUG MONITORING REPORT IN PATIENT MIGUEL: Not Applicable Sepsis Event Note (ED) - Focused Exam Vital Signs: Vital Signs Temp Pulse Resp BP Pulse Ox 12/01/19 08:37 76 15 139/60 95 12/01/19 07:55 36.9 C 76 16 146/66 H 95 - My Orders Last 24 Hours: My Active Orders 12/01/19 07:40 EKG Documentation Completion [RC] STAT Pulse Oximetry [RC] ASDIRECTED Sodium Chloride 0.9% [Saline Flush] 10 ml FLUSH ASDIRECTED PRN Sodium Chloride 0.9% [Saline Flush] 2.5 ml FLUSH ASDIRECTED PRN Saline Lock Insert [OM.PC] Stat 12/01/19 08:37 Patient Status [ADT] Routine 12/01/19 Lunch NPO [Nothing Per Oral Diet] [DIET] - Assessment/Plan Last 24 Hours: My Active Orders 12/01/19 07:40 EKG Documentation Completion [RC] STAT Pulse Oximetry [RC] ASDIRECTED Sodium Chloride 0.9% [Saline Flush] 10 ml FLUSH ASDIRECTED PRN Sodium Chloride 0.9% [Saline Flush] 2.5 ml FLUSH ASDIRECTED PRN Saline Lock Insert [OM.PC] Stat 12/01/19 08:37 Patient Status [ADT] Routine 12/01/19 Lunch NPO [Nothing Per Oral Diet] [DIET]
--- NOTE | 2019-12-01 08:09 | CR ---
Chest: Portable view of the chest was obtained. Comparison: Prior chest x-ray of 08/25/19. Heart is mildly enlarged. Tortuous thoracic aorta is seen. Lungs are hyperinflated compatible with emphysematous change. Scarring is noted within the lateral right costophrenic angle. No acute parenchymal changes seen. Bony structures are grossly intact. Carotid artery calcification is seen. Impression: 1. Findings as described above. 2. Nothing acute is appreciated. Diagnostic code #2 Study was dictated in MDT
[2019-12-01 08:11] LABS: BLOOD UREA NITROGEN,BUN 27 mg/dL (7.0-18.0); CARBON DIOXIDE,CO2 30.1 mmol/L (21.0-32.0); CHLORIDE,CL 102 mmol/L (98-107); GLUCOSE RANDOM 121 mg/dL (74-106); POTASSIUM,K 3.4 mmol/L (3.5-5.1); SODIUM,NA 141 mmol/L (136-145)
--- NOTE | 2019-12-01 08:11 | CR ---
Pelvis and right hip: AP view of the pelvis was obtained as well as AP view of the right tibia and slight oblique view of the right hip. Mildly impacted fracture is noted within the subcapital region of the right hip. Bony structures are osteoporotic. Vascular calcification is noted. Disc space narrowing is noted within the lower thoracic spine. Impression: 1. Mildly impacted subcapital fracture within the right hip. 2. Other findings which are nonacute. Diagnostic code #3 Study was dictated in MDT
[2019-12-01] MEDS ORDERED: Sodium Chloride 0.9% 1,000 ML IV ONE (08:23)
--- NOTE | 2019-12-01 08:39 | CT ---
Head CT Technique: Multiple axial sections through the brain were obtained. Intravenous contrast was not utilized. Comparison: Prior head CT study of 08/25/19. Findings: Ventricles along with basal cisterns and sulci over the convexities are mildly prominent. No abnormal parenchymal densities are seen. No evidence of intracranial hemorrhage. No midline shift or mass-effect is seen. Old lacunar infarcts are noted within the basal ganglia. Mild diminished density is noted within the periventricular white matter most likely representing mild small vessel ischemic demyelination change. No evidence of intracranial hemorrhage. Atherosclerotic calcification is seen within the carotid siphon and within the vertebral vessels. Bone window settings were reviewed which shows mucosal thickening within both maxillary sinuses. No acute calvarial abnormality is appreciated. Visualized mastoid sinuses are clear. Impression: 1. Mild chronic appearing sinusitis as noted above. 2. Senescent change as described above. 3. No acute intracranial abnormality is seen. Diagnostic code #2 This report was dictated in MDT
--- NOTE | 2019-12-01 08:43 | CT ---
CT cervical spine Technique: Multiple axial sections were obtained from above C1 inferiorly to the lower T4 level. Reconstructed sagittal and coronal images were obtained. Comparison: No prior cervical spine imaging. Findings: Severe disc space narrowing is noted at C3-4, C4-5, C5-6 and C6-7. Posterior osteophytes are seen at the same levels most prominent at C4-5 and C5-6. Vertebral body heights are maintained. Degenerative change is noted around the dens and articulation to the anterior C1 arch. Mild degenerative change is scattered throughout the apophyseal joints. Mild left-sided neural foraminal stenosis noted at C3-4. Other neural foramina are fairly well patent. No discrete central canal stenosis is noted. No fracture is appreciated. No abnormal subluxation is seen. Impression: 1. Degenerative change. 2. No acute fracture or abnormal subluxation is seen. Diagnostic code #2 This report was dictated in MDT
[2019-12-01] MEDS ORDERED: oxyCODONE 5 MG Tab PO ONE (09:10)
[2019-12-01] MEDS ORDERED: Ondansetron 4 MG/2 ML SDV IVPUSH PRN (10:39)
--- NOTE | 2019-12-01 10:43 | PCM.HP.2 ---
H&P History of Present Illness - General Date of Service: 12/01/19 Admit Problem/Dx: Admission Diagnosis/Problem Admission Diagnosis/Problem Subcapital fracture of right hip Source of Information: Patient History Limitations: Reports: No Limitations - History of Present Illness Initial Comments - Free Text/Narative: This 84 year old female with pmh of HTN, dyslipidemia, hypothyroidism presented to the ED qith R groin pain and inability to ambulate after she fell last night. She reports she was up ambulating to her closet when she suddenly fell. She denies dizziness, lightheadedness, chest pain or palpitations before fall. She reports she remembers the entire fall, just unsure of the mechanism of fall. She denies passing out and denies hitting her head. She reports she has been feeling well prior to this. No fevers or chills. No cough or dyspnea. No abdominal pain, urinary symptoms or diarrhea. She reports more constipation if anything, denies BM in the last 2-3 days. She denies focal neurological deficits. She reports she quit smoking maybe 4 months ago, no alcohol use and no recreational drug use. She denies known CAD, no previous PA or stenting. No CHF. No COPD. No hx CVA. In the ED no leukocytosis noted, hgb 11.2, platelets 196, K+ 3.4, BUN 27, Cr 1.4 troponin negative. TSH 3.43, Headt CT negative, some chronic sinusitis. Cervical spine CT negative. Hip Xray revealed mildly impacted subcapital fracture within the R hip. CXR negative, no cardiomegaly. She was given Pain medications in the ED. Dr Alva, orthopedics notified of admission and he agrees. PCP Dr Mera, I notified him this morning of admission. Groin Pain Score (Numeric/FACES): 9 - Related Data Allergies/Adverse Reactions: Allergies Allergy/AdvReac Type Severity Reaction Status Date / Time No Known Allergies Allergy Verified 12/01/19 09:58 Home Medications: Home Meds Losartan/Hydrochlorothiazide [Losartan-HCTZ 100-25 MG] 1 tab PO DAILY 07/31/17 [History] atorvaSTATin [Lipitor] 20 mg PO DAILY 07/31/17 [History] Levothyroxine Sodium [Synthroid] 1 tab PO DAILY 08/25/19 [History] Aspirin 81 mg PO DAILY 12/01/19 [History] Ferrous Sulfate 324 mg PO BIDMEALS 12/01/19 [History] PARoxetine [Paxil] 10 mg PO DAILY 12/01/19 [History] Past Medical History HEENT History: Reports: None Cardiovascular History: Reports: Aneurysm, High Cholesterol, Hypertension. Denies: Heart Failure Respiratory History: Reports: None Gastrointestinal History: Reports: None. Denies: GERD, GI Bleed Genitourinary History: Reports: None. Denies: Chronic Renal Insuffiency [employer] History: Reports: Other OB/BYN History: hysterectomy Musculoskeletal History: Reports: Arthritis, Back Pain, Chronic Neurological History: Reports: None. Denies: CVA, TIA Psychiatric History: Reports: None Endocrine/Metabolic History: Reports: Hypothyroidism Hematologic History: Reports: None Immunologic History: Reports: None Oncologic (Cancer) History: Reports: None Dermatologic History: Reports: None - Infectious Disease History Infectious Disease History: Reports: Chicken Pox, Meningitis, Mumps - Past Surgical History Head Surgeries/Procedures: Reports: None HEENT Surgical History: Reports: None Cardiovascular Surgical History: Reports: Aneurysm Respiratory Surgical History: Reports: None GI Surgical History: Reports: Appendectomy, Cholecystectomy, Colonoscopy Female Surgical History: Reports: Hysterectomy Endocrine Surgical History: Reports: None Neurological Surgical History: Reports: None Musculoskeletal Surgical History: Reports: None Oncologic Surgical History: Reports: None Dermatological Surgical History: Reports: None Social & Family History - Family History Family Medical History: Noncontributory - Tobacco Use Smoking Status *Q: Former Smoker Years of Tobacco use: 30 Used Tobacco, but Quit: Yes Month/Year Tobacco Last Used: 07/2019 - Caffeine Use Caffeine Use: Reports: Coffee Caffeine Use Comment: 1 cup per day - Alcohol Use Alcohol Use History: No - Recreational Drug Use Recreational Drug Use: No - Living Situation & Occupation Occupation: Retired H&P Review of Systems - Review of Systems: Review Of Systems: See Below General: Reports: Weakness. Denies: Fever, Chills, Malaise HEENT: Reports: No Symptoms. Denies: Headaches, Sinus Congestion, Sore Throat, Vertigo Pulmonary: Denies: Shortness of Breath, Cough, Sputum Cardiovascular: Reports: No Symptoms. Denies: Chest Pain, Palpitations, Edema, Lightheadedness, Syncope Gastrointestinal: Reports: Constipation. Denies: Abdominal Pain, Black Stool, Bloody Stool, Decreased Appetite, Distension, Nausea, Vomiting Genitourinary: Reports: No Symptoms. Denies: Dysuria, Frequency, Burning Musculoskeletal: Reports: Joint Pain (R hip and groin) Skin: Reports: No Symptoms Psychiatric: Reports: No Symptoms Neurological: Reports: No Symptoms Hematologic/Lymphatic: Reports: No Symptoms Immunologic: Reports: No Symptoms Exam - Exam Exam: See Below - Vital Signs Vital Signs: Last Vital Signs Temp 97.7 F 12/01/19 09:45 Pulse 70 12/01/19 09:45 Resp 16 12/01/19 09:45 BP 121/58 L 12/01/19 09:45 Pulse Ox 92 L 12/01/19 09:45 Weight: 54.431 kg - Exam Quality Assessment: Urinary Catheter, DVT Prophylaxis General: Alert, Oriented, Cooperative HEENT: Conjunctiva Clear, Mucosa Moist & [place], Posterior Pharynx Clear Neck: Supple, Trachea Midline Lungs: Clear to Auscultation, Normal Respiratory Effort Cardiovascular: Regular Rate, Regular Rhythm, Normal S1, Normal S2. No: Systolic Murmur GI/Abdominal Exam: Normal Bowel Sounds, Soft, Non-Tender Back Exam: Normal Inspection, Full Range of Motion Extremities: No Pedal Edema, Other (external rotation noted to R with slight shortening) Skin: Ecchymosis (R hip) Neuro Extensive - Mental Status: Alert, Oriented x3 Neuro Extensive - Motor, Sensory, Reflexes: CN II-XII Intact Psychiatric: Alert, Normal Affect, Normal Mood - Patient Data Lab Results Last 24 hrs: Laboratory Results - last 24 hr 12/01/19 12/01/19 12/01/19 Range/Units 07:40 07:40 07:40 WBC 9.57 (4.0-11.0) K/uL RBC 3.44 L (4.30-5.90) M/uL Hgb 11.2 L (12.0-16.0) g/dL Hct 33.3 L (36.0-46.0) % MCV 96.8 (80.0-98.0) fL MCH 32.6 H (27.0-32.0) pg MCHC 33.6 (31.0-37.0) g/dL RDW Std Deviation 52.6 (28.0-62.0) fl RDW Coeff of [place] 15 (11.0-15.0) % Plt Count 196 (150-400) K/uL MPV 9.50 (7.40-12.00) fL Neut % (Auto) 77.0 (48.0-80.0) % Lymph % (Auto) 15.0 L (16.0-40.0) % [place] % (Auto) 7.5 (0.0-15.0) % Eos % (Auto) 0.2 (0.0-7.0) % Baso % (Auto) 0.3 (0.0-1.5) % Neut # (Auto) 7.4 H (1.4-5.7) K/uL Lymph # (Auto) 1.4 (0.6-2.4) K/uL [place] # (Auto) 0.7 (0.0-0.8) K/uL Eos # (Auto) 0.0 (0.0-0.7) K/uL Baso # (Auto) 0.0 (0.0-0.1) K/uL Nucleated RBC % 0.0 /100WBC Nucleated RBCs # 0 K/uL INR 1.02 Lactate 1.2 (0.20-2.00) mmol/L Sodium (136-145) mmol/L Potassium (3.5-5.1) mmol/L Chloride (98-107) mmol/L Carbon Dioxide (21.0-32.0) mmol/L BUN (7.0-18.0) mg/dL Creatinine (0.6-1.0) mg/dL Est Cr Clr Drug Dosing mL/min Estimated GFR (MDRD) ml/min Glucose (74-106) mg/dL Calcium (8.5-10.1) mg/dL Total Bilirubin (0.2-1.0) mg/dL AST (15-37) IU/L ALT (14-63) IU/L Alkaline Phosphatase (46-116) U/L Creatine Kinase (26-308) U/L Troponin I (0.000-0.056) ng/mL Total Protein (6.4-8.2) g/dL Albumin (3.4-5.0) g/dL Globulin (2.6-4.0) g/dL Albumin/Globulin Ratio (0.9-1.6) Blood Type Antibody Screen 12/01/19 12/01/19 Range/Units 07:40 07:40 WBC (4.0-11.0) K/uL RBC (4.30-5.90) M/uL Hgb (12.0-16.0) g/dL Hct (36.0-46.0) % MCV (80.0-98.0) fL MCH (27.0-32.0) pg MCHC (31.0-37.0) g/dL RDW Std Deviation (28.0-62.0) fl RDW Coeff of [place] (11.0-15.0) % Plt Count (150-400) K/uL MPV (7.40-12.00) fL Neut % (Auto) (48.0-80.0) % Lymph % (Auto) (16.0-40.0) % [place] % (Auto) (0.0-15.0) % Eos % (Auto) (0.0-7.0) % Baso % (Auto) (0.0-1.5) % Neut # (Auto) (1.4-5.7) K/uL Lymph # (Auto) (0.6-2.4) K/uL [place] # (Auto) (0.0-0.8) K/uL Eos # (Auto) (0.0-0.7) K/uL Baso # (Auto) (0.0-0.1) K/uL Nucleated RBC % /100WBC Nucleated RBCs # K/uL INR Lactate (0.20-2.00) mmol/L Sodium 141 (136-145) mmol/L Potassium 3.4 L (3.5-5.1) mmol/L Chloride 102 (98-107) mmol/L Carbon Dioxide 30.1 (21.0-32.0) mmol/L BUN 27 H (7.0-18.0) mg/dL Creatinine 1.4 H (0.6-1.0) mg/dL Est Cr Clr Drug Dosing 24.50 mL/min Estimated GFR (MDRD) 36.0 ml/min Glucose 121 H (74-106) mg/dL Calcium 8.8 (8.5-10.1) mg/dL Total Bilirubin 0.7 (0.2-1.0) mg/dL AST 24 (15-37) IU/L ALT 33 (14-63) IU/L Alkaline Phosphatase 73 (46-116) U/L Creatine Kinase 39 (26-308) U/L Troponin I < 0.050 (0.000-0.056) ng/mL Total Protein 6.9 (6.4-8.2) g/dL Albumin 3.5 (3.4-5.0) g/dL Globulin 3.4 (2.6-4.0) g/dL Albumin/Globulin Ratio 1.0 (0.9-1.6) Blood Type A POSITIVE Antibody Screen NEGATIVE Result Diagrams: 12/01/19 07:40 12/01/19 07:40 Sepsis Event Note - Evaluation Sepsis Screening Result: No Definite Risk - Focused Exam Vital Signs: Vital Signs Temp Pulse Resp BP Pulse Ox 12/01/19 09:45 97.7 F 70 16 121/58 L 92 L 12/01/19 09:22 65 17 154/57 H 100 12/01/19 08:37 76 15 139/60 95 12/01/19 07:55 98.4 F 76 16 146/66 H 95 Date Exam was Performed: 12/01/19 Time Exam was Performed: 12:33 - Problem List (1) Subcapital fracture of right femur SNOMED Code(s): 084284831, [id number] ICD Code: S72.011A - UNSP INTRACAPSULAR FRACTURE OF RIGHT FEMUR, INIT FOR CLOS FX Status: Acute Current Visit: Yes Qualifiers: Encounter type: initial encounter Fracture type: closed Qualified Code(s): S72.011A - Unspecified intracapsular fracture of right femur, initial encounter for closed fracture (2) Fall SNOMED Code(s): 5591148, 220113453 ICD Code: W19.XXXA - UNSPECIFIED FALL, INITIAL ENCOUNTER Status: Acute Current Visit: Yes (3) HTN (hypertension) SNOMED Code(s): 75933961 ICD Code: I10 - ESSENTIAL (PRIMARY) HYPERTENSION Status: Chronic Current Visit: Yes (4) Dyslipidemia SNOMED Code(s): 912571590 ICD Code: E78.5 - HYPERLIPIDEMIA, UNSPECIFIED Status: Chronic Current Visit: Yes (5) Hypothyroidism SNOMED Code(s): 70703637 ICD Code: E03.9 - HYPOTHYROIDISM, UNSPECIFIED Status: Chronic Current Visit: Yes (6) GI bleeding SNOMED Code(s): 03905129 ICD Code: K92.2 - GASTROINTESTINAL HEMORRHAGE, UNSPECIFIED Status: Chronic Current Visit: Yes Qualifiers: GI bleed type/associated pathology: melena Qualified Code(s): K92.1 - Melena (7) Compression fracture SNOMED Code(s): 286338360 ICD Code: KUB3294 - Status: Chronic Current Visit: Yes Problem List Initiated/Reviewed/Updated: Yes Orders Last 24hrs: Active Orders 24 hr Category Date Time Status Patient Status [ADT] Routine ADT 12/01/19 08:37 Active Antiembolic Devices [RC] PER UNIT ROUTINE Care 12/01/19 10:39 Ordered EKG Documentation Completion [RC] STAT Care 12/01/19 07:40 Active Intake and Output [RC] QSHIFT Care 12/01/19 10:39 Ordered Notify Provider Consults [RC] ASDIRECTED Care 12/01/19 10:41 Ordered Oxygen Therapy [RC] PRN Care 12/01/19 10:39 Ordered Pulse Oximetry [RC] ASDIRECTED Care 12/01/19 07:40 Active Telemetry Monitoring [Cardiac Monitoring] [RC] . Care 12/01/19 10:32 Ordered DIRECTED VTE/DVT Education [RC] PER UNIT ROUTINE Care 12/01/19 10:39 Ordered Vital Signs [RC] Q4H Care 12/01/19 10:39 Ordered Consult to Physician [CONS] Routine Cons 12/01/19 10:39 Ordered NPO [Nothing Per Oral Diet] [DIET] Diet 12/01/19 Lunch Active Echo Comp wo Cont [US] Urgent Exams 12/01/19 10:38 Ordered BASIC METABOLIC PANEL,BMP [CHEM] AM Lab 12/02/19 05:11 Ordered BASIC METABOLIC PANEL,BMP [CHEM] AM Lab 12/03/19 05:11 Ordered BASIC METABOLIC PANEL,BMP [CHEM] AM Lab 12/04/19 05:11 Ordered CBC WITH AUTO DIFF [HEME] AM Lab 12/02/19 05:11 Ordered CBC WITH AUTO DIFF [HEME] AM Lab 12/03/19 05:11 Ordered CBC WITH AUTO DIFF [HEME] AM Lab 12/04/19 05:11 Ordered MAGNESIUM [CHEM] AM Lab 12/02/19 05:11 Ordered MAGNESIUM [CHEM] AM Lab 12/03/19 05:11 Ordered MAGNESIUM [CHEM] AM Lab 12/04/19 05:11 Ordered PHOSPHORUS [CHEM] AM Lab 12/02/19 05:11 Ordered PHOSPHORUS [CHEM] AM Lab 12/03/19 05:11 Ordered PHOSPHORUS [CHEM] AM Lab 12/04/19 05:11 Ordered TSH [CHEM] Routine Lab 12/01/19 10:42 Ordered UA W/MICROSCOPIC [URIN] Stat Lab 12/01/19 10:39 Ordered Docusate Sodium [Colace] Med 12/01/19 10:39 Ordered 100 mg PO BID PRN Morphine Med 12/01/19 10:39 Ordered 2 mg IVPUSH Q2H PRN Ondansetron [Zofran] Med 12/01/19 10:39 Ordered 4 mg IVPUSH Q4H PRN Sodium Chloride 0.9% [Normal Saline] 1,000 ml Med 12/01/19 10:45 Ordered IV Q13H Sodium Chloride 0.9% [Saline Flush] Med 12/01/19 07:40 Active 2.5 ml FLUSH ASDIRECTED PRN Saline Lock Insert [OM.PC] Stat Oth 12/01/19 07:40 Ordered Sequential Compression Device [OM.PC] Per Unit Routine Oth 12/01/19 10:39 Ordered Resuscitation Status Routine Resus Stat 12/01/19 10:39 Ordered Medication Orders Docusate Sodium (Colace) 100 mg PO BID PRN PRN Reason: Constipation Sodium Chloride (Normal Saline) 1,000 mls @ 75 mls/hr IV Q13H [facility] Morphine Sulfate (Morphine) 2 mg IVPUSH Q2H PRN PRN Reason: Pain (severe 7-10) Stop: 12/02/19 10:39 Ondansetron HCl (Zofran) 4 mg IVPUSH Q4H PRN PRN Reason: Nausea Sodium Chloride (Saline Flush) 2.5 ml FLUSH ASDIRECTED PRN PRN Reason: Keep Vein Open Last Admin: 12/01/19 08:09 Dose: 2.5 ml Documented by: GENESIS Assessment/Plan Comment:: This 84 year old female admitted s/p fall and noted to have subcapital fracture of R hip 1. Subcapital fracture R hip - Dr Alva, Orthopedics consulted, likely OR this afternoon - NPO - Obtained UA pre-op reveals UTI - [place] cares - Calcium/Vitamin D daily - Gentle IVFs 2. UTI: - UC pending - Rocephin started, 1 gm IV every 24 hours 3. Fall: - Monitor on telemetry - Obtain ECHO - PT/OT after surgery - Will likely need to return to SNF for at least rehabilitation 4. HTN/dyslipidemia/hypothyroidism: - Renal function near baseline. - Restart home meds in the am - Continue levothyroxine, TSH stable at 3.43 5. Recent GI bleed - October 2019 melena noted, EGD refused by patient but colonoscopy done in [place]. No source of bleeding noted since patient refused scope. Hgb remains stable. - Denies dark stools. - Protonix daily for now. - Reports dark stools, but does take iron BID. Denies bloody stools - Monitor hgb closely and likely no pharmacologic VTE prophylaxis. VTE prophylaxis: SCDs Consults: Dr Alva, orthopedics Dispo: 3 days, likely will need placement which [facility] agrees with. Will discuss with social work. Spoke with Dr Mera already regarding admission and need for placement - Mortality Measure Prognosis:: Good
[2019-12-01] MEDS: Sodium Chloride 0.9% 1,000 ML IV SCH (10:59)
[2019-12-01] MEDS: cefTRIAXone 1 GM in Premix Bag 1 BAG IV SCH (11:53)
--- NOTE | 2019-12-01 13:13 | PCM.PREANE ---
Preanesthetic Assessment - Anesthesia/Transfusion/Family Hx Anesthesia History: Prior Anesthesia Without Reaction Family History of Anesthesia Reaction: No Transfusion History: No Prior Transfusion(s) Intubation History: Unknown - Review of Systems General: No Symptoms Pulmonary: No Symptoms Cardiovascular: No Symptoms Gastrointestinal: No Symptoms Neurological: No Symptoms Other: Reports: None - Physical Assessment Vital Signs: Last Vital Signs Temp 36.5 C 12/01/19 09:45 Pulse 70 12/01/19 09:45 Resp 16 12/01/19 09:45 BP 121/58 L 12/01/19 09:45 Pulse Ox 92 L 12/01/19 09:45 Height: 5 ft 6 in Weight: 54.431 kg ASA Class: 3 Mental Status: Alert & Oriented x3 Airway Class: Mallampati = 2 Dentition: Reports: Dentures (upper) Thyro-Mental Finger Breadths: 3 Mouth Opening Finger Breadths: 2 ROM/Head Extension: Limited/Partial Lungs: Clear to Auscultation, Normal Respiratory Effort Cardiovascular: Regular Rate, Regular Rhythm - Lab Values: Laboratory Last Values WBC 9.57 K/uL (4.0-11.0) 12/01/19 07:40 RBC 3.44 M/uL (4.30-5.90) L 12/01/19 07:40 Hgb 11.2 g/dL (12.0-16.0) L 12/01/19 07:40 Hct 33.3 % (36.0-46.0) L 12/01/19 07:40 MCV 96.8 fL (80.0-98.0) 12/01/19 07:40 MCH 32.6 pg (27.0-32.0) H 12/01/19 07:40 MCHC 33.6 g/dL (31.0-37.0) 12/01/19 07:40 RDW Std Deviation 52.6 fl (28.0-62.0) 12/01/19 07:40 RDW Coeff of [place] 15 % (11.0-15.0) 12/01/19 07:40 Plt Count 196 K/uL (150-400) 12/01/19 07:40 MPV 9.50 fL (7.40-12.00) 12/01/19 07:40 Neut % (Auto) 77.0 % (48.0-80.0) 12/01/19 07:40 Lymph % (Auto) 15.0 % (16.0-40.0) L 12/01/19 07:40 [place] % (Auto) 7.5 % (0.0-15.0) 12/01/19 07:40 Eos % (Auto) 0.2 % (0.0-7.0) 12/01/19 07:40 Baso % (Auto) 0.3 % (0.0-1.5) 12/01/19 07:40 Neut # (Auto) 7.4 K/uL (1.4-5.7) H 12/01/19 07:40 Lymph # (Auto) 1.4 K/uL (0.6-2.4) 12/01/19 07:40 [place] # (Auto) 0.7 K/uL (0.0-0.8) 12/01/19 07:40 Eos # (Auto) 0.0 K/uL (0.0-0.7) 12/01/19 07:40 Baso # (Auto) 0.0 K/uL (0.0-0.1) 12/01/19 07:40 Nucleated RBC % 0.0 /100WBC 12/01/19 07:40 Nucleated RBCs # 0 K/uL 12/01/19 07:40 INR 1.02 12/01/19 07:40 Lactate 1.2 mmol/L (0.20-2.00) 12/01/19 07:40 Sodium 141 mmol/L (136-145) 12/01/19 07:40 Potassium 3.4 mmol/L (3.5-5.1) L 12/01/19 07:40 Chloride 102 mmol/L (98-107) 12/01/19 07:40 Carbon Dioxide 30.1 mmol/L (21.0-32.0) 12/01/19 07:40 BUN 27 mg/dL (7.0-18.0) H 12/01/19 07:40 Creatinine 1.4 mg/dL (0.6-1.0) H 12/01/19 07:40 Est Cr Clr Drug Dosing 24.50 mL/min 12/01/19 07:40 Estimated GFR (MDRD) 36.0 ml/min 12/01/19 07:40 Glucose 121 mg/dL (74-106) H 12/01/19 07:40 Calcium 8.8 mg/dL (8.5-10.1) 12/01/19 07:40 Total Bilirubin 0.7 mg/dL (0.2-1.0) 12/01/19 07:40 AST 24 IU/L (15-37) 12/01/19 07:40 ALT 33 IU/L (14-63) 12/01/19 07:40 Alkaline Phosphatase 73 U/L (46-116) 12/01/19 07:40 Creatine Kinase 39 U/L (26-308) 12/01/19 07:40 Troponin I < 0.050 ng/mL (0.000-0.056) 12/01/19 07:40 Total Protein 6.9 g/dL (6.4-8.2) 12/01/19 07:40 Albumin 3.5 g/dL (3.4-5.0) 12/01/19 07:40 Globulin 3.4 g/dL (2.6-4.0) 12/01/19 07:40 Albumin/Globulin Ratio 1.0 (0.9-1.6) 12/01/19 07:40 TSH 3rd Generation 3.43 uIU/mL (0.36-3.74) 12/01/19 07:40 Urine Color YELLOW 12/01/19 10:55 Urine Appearance CLOUDY 12/01/19 10:55 Urine pH 6.5 (5.0-8.0) 12/01/19 10:55 Ur Specific [place] 1.020 (1.001-1.035) 12/01/19 10:55 Urine Protein TRACE mg/dL (NEGATIVE) H 12/01/19 10:55 Urine Glucose (UA) NEGATIVE mg/dL (NEGATIVE) 12/01/19 10:55 Urine Ketones NEGATIVE mg/dL (NEGATIVE) 12/01/19 10:55 Urine Occult Blood SMALL (NEGATIVE) H 12/01/19 10:55 Urine Nitrite POSITIVE (NEGATIVE) H 12/01/19 10:55 Urine Bilirubin NEGATIVE (NEGATIVE) 12/01/19 10:55 Urine Urobilinogen 0.2 EU/dL (<2.0) 12/01/19 10:55 Ur Leukocyte Esterase MODERATE (NEGATIVE) H 12/01/19 10:55 Urine RBC 3-5 (0-2/HPF) 12/01/19 10:55 Urine WBC TO NUMEROUS TO COUNT (0-5/HPF) H 12/01/19 10:55 Ur Epithelial Cells RARE (NONE-FEW) 12/01/19 10:55 Urine Bacteria 3+ (NEGATIVE) H 12/01/19 10:55 Blood Type A POSITIVE 12/01/19 07:40 Antibody Screen NEGATIVE 12/01/19 07:40 - Allergies Allergies/Adverse Reactions: Allergies Allergy/AdvReac Type Severity Reaction Status Date / Time No Known Allergies Allergy Verified 12/01/19 09:58 - Blood Blood Available: No - Anesthesia Plan Pre-Op Medication Ordered: None - Acknowledgements Anesthesia Type Planned: Spinal Pt an Appropriate Candidate for the Planned Anesthesia: Yes Alternatives and Risks of Anesthesia Discussed w Pt/Guardian: Yes Pt/Guardian Understands and Agrees with Anesthesia Plan: Yes PreAnesthesia Questionnaire HEENT History: Reports: None Cardiovascular History: Reports: Aneurysm (thoracic - fixed 10-15 years ago per patient), High Cholesterol, Hypertension. Denies: Heart Failure Respiratory History: Reports: None Gastrointestinal History: Reports: None. Denies: GERD, GI Bleed Genitourinary History: Reports: None. Denies: Chronic Renal Insuffiency [employer] History: Reports: Other OB/BYN History: hysterectomy Musculoskeletal History: Reports: Arthritis, Back Pain, Chronic, Other (See Below) (rt. femur fx. at present) Neurological History: Reports: None. Denies: CVA, TIA Psychiatric History: Reports: None Endocrine/Metabolic History: Reports: Hypothyroidism Hematologic History: Reports: None Immunologic History: Reports: None Oncologic (Cancer) History: Reports: None Dermatologic History: Reports: None - Infectious Disease History Infectious Disease History: Reports: Chicken Pox, Meningitis, Mumps - Past Surgical History Head Surgeries/Procedures: Reports: None HEENT Surgical History: Reports: None Cardiovascular Surgical History: Reports: Aneurysm Respiratory Surgical History: Reports: None GI Surgical History: Reports: Appendectomy, Cholecystectomy, Colonoscopy Female Surgical History: Reports: Hysterectomy Endocrine Surgical History: Reports: None Neurological Surgical History: Reports: None Musculoskeletal Surgical History: Reports: None Oncologic Surgical History: Reports: None Dermatological Surgical History: Reports: None - SUBSTANCE USE Smoking Status *Q: Former Smoker Tobacco Use Within Last Twelve Months: Cigarettes Recreational Drug Use History: No - HOME MEDS Home Medications: Home Meds Losartan/Hydrochlorothiazide [Losartan-HCTZ 100-25 MG] 1 tab PO DAILY 07/31/17 [History] atorvaSTATin [Lipitor] 20 mg PO DAILY 07/31/17 [History] Levothyroxine Sodium [Synthroid] 1 tab PO DAILY 08/25/19 [History] Aspirin 81 mg PO DAILY 12/01/19 [History] Ferrous Sulfate 324 mg PO BIDMEALS 12/01/19 [History] PARoxetine [Paxil] 10 mg PO DAILY 12/01/19 [History] - CURRENT (IN HOUSE) MEDS Current Meds: Current Medications Atorvastatin Calcium (Lipitor) 20 mg PO BEDTIME [facility] Calcium Carbonate (Caltrate 600+D 1500 Mg-400 Units) 1 tab PO DAILY [facility] Docusate Sodium (Colace) 100 mg PO BID PRN PRN Reason: Constipation Ferrous Sulfate (Ferrous Sulfate) 325 mg PO BIDMEALS [facility] Sodium Chloride (Normal Saline) 1,000 mls @ 75 mls/hr IV Q13H [facility] Last Admin: 12/01/19 10:59 Dose: 75 mls/hr Documented by: Ceftriaxone Sodium/Dextrose 1 (gm/ Premix) 50 mls @ 100 mls/hr IV Q24H [facility] Last Admin: 12/01/19 11:53 Dose: 100 mls/hr Documented by: Pantoprazole Sodium 40 mg/ (Sodium Chloride) 10 mls @ 300 mls/hr IV Q24H [facility] Levothyroxine Sodium (Levothyroxine) 25 mcg PO DAILY@0700 [facility] Morphine Sulfate (Morphine) 2 mg IVPUSH Q2H PRN PRN Reason: Pain (severe 7-10) Ondansetron HCl (Zofran) 4 mg IVPUSH Q4H PRN PRN Reason: Nausea Paroxetine HCl (Paxil) 10 mg PO DAILY [facility] Sodium Chloride (Saline Flush) 2.5 ml FLUSH ASDIRECTED PRN PRN Reason: Keep Vein Open Last Admin: 12/01/19 08:09 Dose: 2.5 ml Documented by: Discontinued Medications Acetaminophen (Tylenol Extra Strength) 1,000 mg PO ONETIME ONE Stop: 12/01/19 07:41 Last Admin: 12/01/19 08:07 Dose: 1,000 mg Documented by: Fentanyl (Fentanyl) 25 mcg IVPUSH ONETIME ONE Stop: 12/01/19 07:41 Last Admin: 12/01/19 08:07 Dose: 25 mcg Documented by: Sodium Chloride (Normal Saline) 1,000 mls @ 1,000 mls/hr IV .Bolus ONE Stop: 12/01/19 09:22 Last Admin: 12/01/19 08:36 Dose: 1,000 mls/hr Documented by: Oxycodone HCl (Oxycodone) 10 mg PO ONETIME ONE Stop: 12/01/19 09:11 Last Admin: 12/01/19 09:25 Dose: 10 mg Documented by: Sodium Chloride (Saline Flush) 10 ml FLUSH ASDIRECTED PRN PRN Reason: Keep Vein Open Last Admin: 12/01/19 08:09 Dose: 10 ml Documented by:
[2019-12-01] MEDS: Pantoprazole 40 MG in Sodium Chloride 0.9% 10 ML IV SCH (13:14)
[2019-12-01] MEDS ORDERED: Phenylephrine 1% 10 MG/ML SDV ONE (14:05)
[2019-12-01] MEDS ORDERED: Bupivacaine 0.5% 10 ML SDV ONE (14:26)
[2019-12-01] MEDS ORDERED: Propofol 200 MG/20 ML SDV ONE (14:30)
[2019-12-01] MEDS ORDERED: Midazolam 1 MG/ML 2 ML SDV ONE (14:30)
[2019-12-01] MEDS ORDERED: fentaNYL 100 MCG/2 ML SDV ONE (14:30)
[2019-12-01] MEDS ORDERED: Glycopyrrolate 0.2 MG/ML SDV ONE (14:31)
[2019-12-01] MEDS ORDERED: Ketorolac 30 MG/ML SDV ONE (14:31)
[2019-12-01] MEDS ORDERED: Ondansetron 4 MG/2 ML SDV ONE (14:31)
[2019-12-01] MEDS ORDERED: Lidocaine 2% 5 ML SDV ONE (14:31)
[2019-12-01] MEDS ORDERED: Ketamine 500 mg/10 ML MDV ONE (14:34)
--- NOTE | 2019-12-01 17:03 | PCM.OPNOTE ---
- General Post-Op/Procedure Note Date of Surgery/Procedure: 12/01/19 Operative Procedure(s): right hip hemiarthroplasty Pre Op Diagnosis: right femoral neck subcapital fracture, closed Post-Op Diagnosis: Same Anesthesia Technique: Combo Spinal/Epidural, Moderate Sedation Primary Surgeon: Luis Alva Generator Technician: Sunita Willams EBL in mLs: 100 Complications: None Condition: Stable Free Text/Narrative:: Intake & Output 12/01/19 12/01/19 12/01/19 06:59 14:59 22:59 Intake Total 50 0 Output Total 550 Balance 50 -550
[2019-12-01] MEDS: Ferrous Sulfate 325 MG Tab PO SCH (18:07)
--- NOTE | 2019-12-01 18:07 | PCM.POSTAN ---
POST ANESTHESIA ASSESSMENT - MENTAL STATUS Mental Status: Alert, Oriented - VITAL SIGNS Vital Signs: Last Vital Signs Temp 35.8 C L 12/01/19 18:00 Pulse 58 L 12/01/19 18:00 Resp 16 12/01/19 18:00 BP 127/58 L 12/01/19 18:00 Pulse Ox 95 12/01/19 18:00 - RESPIRATORY Respiratory Status: Respiratory Rate WNL, Airway Patent, O2 Saturation Stable - CARDIOVASCULAR CV Status: Pulse Rate WNL, Blood Pressure Stable - GASTROINTESTINAL GI Status: No Symptoms - PAIN Pain Score: 0 - POST OP HYDRATION Hydration Status: Adequate & Stable - OBSERVATIONS Free Text/Narrative:: no anesthesia problems
--- NOTE | 2019-12-01 18:40 | OR ---
SURGEON: Luis Alva DATE OF PROCEDURE: 12/01/2019 PREOPERATIVE DIAGNOSIS: Right femoral neck fracture, subcapital, closed. POSTOPERATIVE DIAGNOSIS: Right femoral neck fracture, subcapital, closed. PROCEDURE: Right hip hemiarthroplasty. PRIMARY SURGEON: Luis Alva DO ELECTRIC METER REPAIRER HELPER: ERROL Narayanan ROLE OF ELECTRIC METER REPAIRER HELPER: Nurse practitioner, ERROL Narayanan, played an essential role in assisting in this case, helping to position the patient, retract structures as needed, as well as suturing and cutting sutures as indicated. Her presence improved patient's safety and decreased operative time. ANESTHESIA: Spinal plus conscious sedation. FLUID: Lactated Ringer's solution. ESTIMATED BLOOD LOSS: 100 mL. COMPLICATIONS: None. SPECIMEN: None. DISCHARGE DISPOSITION: Stable to PACU. INSTRUMENTATION: Limestone size 7 femur and 28 mm internal diameter bipolar with 44 mm outside diameter. HISTORY AND INDICATIONS FOR THE PROCEDURE: The patient was admitted through the ER today. Preoperative imaging confirmed the above-mentioned diagnosis. I did speak with her on the floor as well as my assist. Risks and goals of the procedure were explained to the patient and informed consent was obtained. DETAILS OF PROCEDURE: The patient was seen preoperatively by myself and the Anesthesia staff in the preoperative holding area where the operative site was marked. She was then brought to the operative suite by the Anesthesia staff where spinal anesthesia plus moderate sedation was administered. She was placed into a left lateral recumbent position on a pegboard. All extremities were found to be well padded. The right lower extremity was then prepped and draped in a sterile manner. Time- out was called identifying the correct patient, the correct procedure, the correct site, and that antibiotics had been given within appropriate period of time. An incision was made 6 cm proximal to the greater trochanter down to about 6 cm distal to the greater trochanter. Bleeding was controlled with Bovie electrocautery. Subcutaneous tissue was incised. Laps were used to bluntly dissect down to the iliotibial band. The iliotibial band was divided with Bovie electrocautery, a Charnley retractor was then inserted. Bovie electrocautery was then used to incise through the gluteus medius and gluteus minimus approximately penitentiary from the lesser trochanter up to the level of the greater trochanter. I used retractors at this point around the femoral neck. I then incised the capsule staying on bone on the femoral neck. Blood from the hematoma was present. I then made a cut with a sagittal saw, approximately 0.75 cm proximal to the lesser trochanter up to the level of the greater trochanter. I then placed a Hohmann at 7 o'clock and then incised the rest away through the capsule to the level of the acetabular ridge. I tried using a corkscrew a few times to remove the femoral head, but it just kept breaking in half. I then used kelsi to extract the femoral head and then cut the fovea capitis to remove the femoral head. At this point, I did place Hohmann retractors at 5 and 7 o'clock on the anterior and posterior wall of the acetabulum and then removed a small amount of soft tissue and small pieces of the femoral head. We then externally rotated the hip and focused on our femoral preparation. I used a telephone coin box collector to enter the canal and appeared at the greater trochanter. I then used a centralizing reamer and then a lateralizing reamer. I then used sequential hand reamers from a size 5 to a size 7. I then broached from 5 to 7, making sure that I was lateralizing the component. The size 7 seemed to have a nice fit. We did trial a 44 acetabular head, which seemed to fit nicely. We then placed our 0 femoral neck and 44 mm head, and relocated the hip. This provided excellent stability throughout range of motion. We then dislocated the hip, removed all of our components and then copiously irrigated with irrigation. After that had been accomplished, we then placed our final components in place, relocated the hip. This provided excellent stability throughout range of motion, and I was not able to dislocate the hip. No shuck was felt and leg lengths felt to be equal. We then used a #5 Ethibond to close the capsule and the attachments to the gluteus medius and gluteus minimus and greater trochanter, closed the capsule in watertight manner with #5 Ethibond. We then irrigated again and closed the iliotibial band with #1 Stratafix and then my assist closed the subcutaneous layer with #2 Stratafix followed by skin xavier followed by Betadine-soaked Adaptic, fluff, and Medipore tape. The patient was allowed to awaken from conscious sedation, transferred to her hospital bed, taken to the PACU in stable condition. [id number] / MODL /[id number] MTDD
[2019-12-01] MEDS: atorvaSTATin 20 MG Tab PO SCH (20:09)
[2019-12-01] MEDS ORDERED: Potassium Chloride 20 MEQ Tab.ER PO ONE (21:04)
[2019-12-01] MEDS: Morphine 2 MG/ML SYRINGE IVPUSH PRN (21:26)
[2019-12-01] MEDS: ceFAZolin 1 GM in Premix Bag 1 BAG IV SCH (21:34)
[2019-12-02] MEDS ORDERED: Magnesium Sulfate/Water 2 GM in Premix Bag 1 BAG IV ONE (02:40)
[2019-12-02] MEDS: Sodium Chloride 0.9% 1,000 ML IV SCH ×2 (02:42→02:45)
[2019-12-02] MEDS: ceFAZolin 1 GM in Premix Bag 1 BAG IV SCH (05:48)
[2019-12-02 06:39] LABS: CARBON DIOXIDE,CO2 26.2 mmol/L (21.0-32.0); POTASSIUM,K 5.3 mmol/L (3.5-5.1)
[2019-12-02] MEDS: Levothyroxine 25 MCG Tab PO SCH (06:41)
--- NOTE | 2019-12-02 07:31 | PCM48HPAN ---
Post Anesthesia Note - EVALUATION WITHIN 48HRS OF ANESTHETIC Vital Signs in Normal Range: Yes Patient Participated in Evaluation: Yes Respiratory Function Stable: Yes Airway Patent: Yes Cardiovascular Function Stable: Yes Hydration Status Stable: Yes Pain Control Satisfactory: Yes Nausea and Vomiting Control Satisfactory: Yes Mental Status Recovered: Yes Vital Signs: Last Vital Signs Temp 36.4 C 12/02/19 07:04 Pulse 61 12/02/19 07:04 Resp 12 12/02/19 07:04 BP 112/53 L 12/02/19 07:04 Pulse Ox 98 12/02/19 07:04 - COMMENTS/OBSERVATIONS Free Text/Narrative:: Doing well as expected.
--- NOTE | 2019-12-02 08:08 | PCM.PN ---
- General Info Date of Service: 12/02/19 Admission Dx/Problem (Free Text): Admission Diagnosis/Problem Admission Diagnosis/Problem Subcapital fracture of right hip Subjective Update: Doing well this morning, reports pain is relatively controlled. No chest pain or SOB. No abdominal pain. No flatus yet and no BM. 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 Functional Status: Reports: Pain Controlled, Tolerating Diet - Review of Systems General: Reports: Fatigue, Malaise HEENT: Reports: No Symptoms. Denies: Headaches, Visual Changes Pulmonary: Reports: No Symptoms. Denies: Shortness of Breath Cardiovascular: Reports: No Symptoms. Denies: Chest Pain Gastrointestinal: Reports: No Symptoms. Denies: Abdominal Pain, Nausea, Vomiting Genitourinary: Reports: No Symptoms. Denies: Dysuria, Frequency, Burning, Flank Pain Musculoskeletal: Reports: No Symptoms Skin: Reports: No Symptoms Neurological: Reports: No Symptoms Psychiatric: Reports: No Symptoms - Patient Data Vitals - Most Recent: Last Vital Signs Temp 97.6 F 12/02/19 07:04 Pulse 61 12/02/19 07:04 Resp 12 12/02/19 07:04 BP 112/53 L 12/02/19 07:04 Pulse Ox 98 12/02/19 07:04 Weight - Most Recent: 54.431 kg I&O - Last 24 Hours: Intake & Output 12/01/19 12/02/19 12/02/19 22:59 06:59 14:59 Intake Total 1400 1120 Output Total 600 460 Balance 800 660 Lab Results Last 24 Hours: Laboratory Results - last 24 hr 12/01/19 12/01/19 12/01/19 Range/Units 07:40 07:40 07:40 WBC (4.0-11.0) K/uL RBC (4.30-5.90) M/uL Hgb (12.0-16.0) g/dL Hct (36.0-46.0) % MCV (80.0-98.0) fL MCH (27.0-32.0) pg MCHC (31.0-37.0) g/dL RDW Std Deviation (28.0-62.0) fl RDW Coeff of [place] (11.0-15.0) % Plt Count (150-400) K/uL MPV (7.40-12.00) fL Add Manual Diff Neutrophils % (Manual) (48.0-80.0) % Band Neutrophils % % Lymphocytes % (Manual) (16.0-40.0) % Monocytes % (Manual) (0.0-15.0) % Nucleated RBC % /100WBC Absolute Seg Neuts (1.4-5.7) Band Neutrophils # Lymphocytes # (Manual) (0.6-2.4) Monocytes # (Manual) (0.0-0.8) Nucleated RBCs # K/uL INR 1.02 Sodium 141 (136-145) mmol/L Potassium 3.4 L (3.5-5.1) mmol/L Chloride 102 (98-107) mmol/L Carbon Dioxide 30.1 (21.0-32.0) mmol/L BUN 27 H (7.0-18.0) mg/dL Creatinine 1.4 H (0.6-1.0) mg/dL Est Cr Clr Drug Dosing 24.50 mL/min Estimated GFR (MDRD) 36.0 ml/min Glucose 121 H (74-106) mg/dL Calcium 8.8 (8.5-10.1) mg/dL Phosphorus (2.6-4.7) mg/dL Magnesium (1.8-2.4) mg/dL Total Bilirubin 0.7 (0.2-1.0) mg/dL AST 24 (15-37) IU/L ALT 33 (14-63) IU/L Alkaline Phosphatase 73 (46-116) U/L Creatine Kinase 39 (26-308) U/L Troponin I < 0.050 (0.000-0.056) ng/mL Total Protein 6.9 (6.4-8.2) g/dL Albumin 3.5 (3.4-5.0) g/dL Globulin 3.4 (2.6-4.0) g/dL Albumin/Globulin Ratio 1.0 (0.9-1.6) TSH 3rd Generation (0.36-3.74) uIU/mL Urine Color Urine Appearance Urine pH (5.0-8.0) Ur Specific [place] (1.001-1.035) Urine Protein (NEGATIVE) mg/dL Urine Glucose (UA) (NEGATIVE) mg/dL Urine Ketones (NEGATIVE) mg/dL Urine Occult Blood (NEGATIVE) Urine Nitrite (NEGATIVE) Urine Bilirubin (NEGATIVE) Urine Urobilinogen (<2.0) EU/dL Ur Leukocyte Esterase (NEGATIVE) Urine RBC (0-2/HPF) Urine WBC (0-5/HPF) Ur Epithelial Cells (NONE-FEW) Urine Bacteria (NEGATIVE) SARS Virus RNA (PCR) (NEGATIVE) Blood Type A POSITIVE Antibody Screen NEGATIVE 12/01/19 12/01/19 12/01/19 Range/Units 07:40 10:55 16:15 WBC (4.0-11.0) K/uL RBC (4.30-5.90) M/uL Hgb (12.0-16.0) g/dL Hct (36.0-46.0) % MCV (80.0-98.0) fL MCH (27.0-32.0) pg MCHC (31.0-37.0) g/dL RDW Std Deviation (28.0-62.0) fl RDW Coeff of Rossana (11.0-15.0) % Plt Count (150-400) K/uL MPV (7.40-12.00) fL Add Manual Diff Neutrophils % (Manual) (48.0-80.0) % Band Neutrophils % % Lymphocytes % (Manual) (16.0-40.0) % Monocytes % (Manual) (0.0-15.0) % Nucleated RBC % /100WBC Absolute Seg Neuts (1.4-5.7) Band Neutrophils # Lymphocytes # (Manual) (0.6-2.4) Monocytes # (Manual) (0.0-0.8) Nucleated RBCs # K/uL INR Sodium (136-145) mmol/L Potassium (3.5-5.1) mmol/L Chloride (98-107) mmol/L Carbon Dioxide (21.0-32.0) mmol/L BUN (7.0-18.0) mg/dL Creatinine (0.6-1.0) mg/dL Est Cr Clr Drug Dosing mL/min Estimated GFR (MDRD) ml/min Glucose (74-106) mg/dL Calcium (8.5-10.1) mg/dL Phosphorus (2.6-4.7) mg/dL Magnesium (1.8-2.4) mg/dL Total Bilirubin (0.2-1.0) mg/dL AST (15-37) IU/L ALT (14-63) IU/L Alkaline Phosphatase (46-116) U/L Creatine Kinase (26-308) U/L Troponin I (0.000-0.056) ng/mL Total Protein (6.4-8.2) g/dL Albumin (3.4-5.0) g/dL Globulin (2.6-4.0) g/dL Albumin/Globulin Ratio (0.9-1.6) TSH 3rd Generation 3.43 (0.36-3.74) uIU/mL Urine Color YELLOW Urine Appearance CLOUDY Urine pH 6.5 (5.0-8.0) Ur Specific [place] 1.020 (1.001-1.035) Urine Protein TRACE H (NEGATIVE) mg/dL Urine Glucose (UA) NEGATIVE (NEGATIVE) mg/dL Urine Ketones NEGATIVE (NEGATIVE) mg/dL Urine Occult Blood SMALL H (NEGATIVE) Urine Nitrite POSITIVE H (NEGATIVE) Urine Bilirubin NEGATIVE (NEGATIVE) Urine Urobilinogen 0.2 (<2.0) EU/dL Ur Leukocyte Esterase MODERATE H (NEGATIVE) Urine RBC 3-5 (0-2/HPF) Urine WBC TO NUMEROUS TO COUNT H (0-5/HPF) Ur Epithelial Cells RARE (NONE-FEW) Urine Bacteria 3+ H (NEGATIVE) SARS Virus RNA (PCR) NEGATIVE (NEGATIVE) Blood Type Antibody Screen 12/01/19 12/02/19 12/02/19 Range/Units 21:14 05:48 05:48 WBC 12.87 H (4.0-11.0) K/uL RBC 2.88 L (4.30-5.90) M/uL Hgb 9.3 L (12.0-16.0) g/dL Hct 29.0 L (36.0-46.0) % MCV 100.7 H (80.0-98.0) fL MCH 32.3 H (27.0-32.0) pg MCHC 32.1 (31.0-37.0) g/dL RDW Std Deviation 56.7 (28.0-62.0) fl RDW Coeff of Rossana 15 (11.0-15.0) % Plt Count 163 (150-400) K/uL MPV 9.80 (7.40-12.00) fL Add Manual Diff YES Neutrophils % (Manual) 75 (48.0-80.0) % Band Neutrophils % 20 % Lymphocytes % (Manual) 3 L (16.0-40.0) % Monocytes % (Manual) 2 (0.0-15.0) % Nucleated RBC % 0.0 /100WBC Absolute Seg Neuts 9.7 H (1.4-5.7) Band Neutrophils # 2.6 Lymphocytes # (Manual) 0.4 L (0.6-2.4) Monocytes # (Manual) 0.3 (0.0-0.8) Nucleated RBCs # 0 K/uL INR Sodium 141 (136-145) mmol/L Potassium 5.3 H (3.5-5.1) mmol/L Chloride 106 (98-107) mmol/L Carbon Dioxide 26.2 (21.0-32.0) mmol/L BUN 29 H (7.0-18.0) mg/dL Creatinine 1.4 H (0.6-1.0) mg/dL Est Cr Clr Drug Dosing 26.62 mL/min Estimated GFR (MDRD) 36.0 ml/min Glucose 107 H (74-106) mg/dL Calcium 7.8 L (8.5-10.1) mg/dL Phosphorus 4.6 (2.6-4.7) mg/dL Magnesium 1.6 L 2.8 H (1.8-2.4) mg/dL Total Bilirubin (0.2-1.0) mg/dL AST (15-37) IU/L ALT (14-63) IU/L Alkaline Phosphatase (46-116) U/L Creatine Kinase (26-308) U/L Troponin I (0.000-0.056) ng/mL Total Protein (6.4-8.2) g/dL Albumin (3.4-5.0) g/dL Globulin (2.6-4.0) g/dL Albumin/Globulin Ratio (0.9-1.6) TSH 3rd Generation (0.36-3.74) uIU/mL Urine Color Urine Appearance Urine pH (5.0-8.0) Ur Specific [place] (1.001-1.035) Urine Protein (NEGATIVE) mg/dL Urine Glucose (UA) (NEGATIVE) mg/dL Urine Ketones (NEGATIVE) mg/dL Urine Occult Blood (NEGATIVE) Urine Nitrite (NEGATIVE) Urine Bilirubin (NEGATIVE) Urine Urobilinogen (<2.0) EU/dL Ur Leukocyte Esterase (NEGATIVE) Urine RBC (0-2/HPF) Urine WBC (0-5/HPF) Ur Epithelial Cells (NONE-FEW) Urine Bacteria (NEGATIVE) SARS Virus RNA (PCR) (NEGATIVE) Blood Type Antibody Screen Med Orders - Current: Current Medications Aspirin (Ecotrin) 325 mg PO DAILY [facility] Atorvastatin Calcium (Lipitor) 20 mg PO BEDTIME [facility] Last Admin: 12/01/19 20:09 Dose: 20 mg Documented by: Calcium Carbonate (Caltrate 600+D 1500 Mg-400 Units) 1 tab PO DAILY [facility] Docusate Sodium (Colace) 100 mg PO BID PRN PRN Reason: Constipation Ferrous Sulfate (Ferrous Sulfate) 325 mg PO BIDMEALS [facility] Last Admin: 12/01/19 18:07 Dose: Not Given Documented by: Sodium Chloride (Normal Saline) 1,000 mls @ 75 mls/hr IV Q13H [facility] Last Admin: 12/02/19 02:45 Dose: 75 mls/hr Documented by: Ceftriaxone Sodium/Dextrose 1 (gm/ Premix) 50 mls @ 100 mls/hr IV Q24H [facility] Last Admin: 12/01/19 11:53 Dose: 100 mls/hr Documented by: Pantoprazole Sodium 40 mg/ (Sodium Chloride) 10 mls @ 300 mls/hr IV Q24H [facility] Last Admin: 12/01/19 13:14 Dose: 300 mls/hr Documented by: Levothyroxine Sodium (Levothyroxine) 25 mcg PO DAILY@0700 [facility] Last Admin: 12/02/19 06:41 Dose: 25 mcg Documented by: Morphine Sulfate (Morphine) 2 mg IVPUSH Q2H PRN PRN Reason: Pain (severe 7-10) Last Admin: 12/01/19 21:26 Dose: 2 mg Documented by: Ondansetron HCl (Zofran) 4 mg IVPUSH Q4H PRN PRN Reason: Nausea Paroxetine HCl (Paxil) 10 mg PO DAILY [facility] Sodium Chloride (Saline Flush) 2.5 ml FLUSH ASDIRECTED PRN PRN Reason: Keep Vein Open Last Admin: 12/01/19 08:09 Dose: 2.5 ml Documented by: Discontinued Medications Acetaminophen (Tylenol Extra Strength) 1,000 mg PO ONETIME ONE Stop: 12/01/19 07:41 Last Admin: 12/01/19 08:07 Dose: 1,000 mg Documented by: Bupivacaine HCl (Sensorcaine-Mpf 0.5%) Confirm Administered Dose 10 ml .ROUTE .STK-MED ONE Stop: 12/01/19 14:27 Fentanyl (Fentanyl) 25 mcg IVPUSH ONETIME ONE Stop: 12/01/19 07:41 Last Admin: 12/01/19 08:07 Dose: 25 mcg Documented by: Fentanyl (Sublimaze) Confirm Administered Dose 100 mcg .ROUTE .STK-MED ONE Stop: 12/01/19 14:31 Glycopyrrolate (Robinul) Confirm Administered Dose 0.2 mg .ROUTE .STK-MED ONE Stop: 12/01/19 14:32 Sodium Chloride (Normal Saline) 1,000 mls @ 1,000 mls/hr IV .Bolus ONE Stop: 12/01/19 09:22 Last Admin: 12/01/19 08:36 Dose: 1,000 mls/hr Documented by: Cefazolin Sodium/Dextrose 1 gm (/ Premix) 50 mls @ 100 mls/hr IV Q8H [facility] Stop: 12/02/19 06:29 Last Admin: 12/02/19 05:48 Dose: 100 mls/hr Documented by: Magnesium Sulfate 2 gm/ Premix 50 mls @ 50 mls/hr IV ONETIME ONE Stop: 12/02/19 03:39 Last Admin: 12/02/19 02:50 Dose: 50 mls/hr Documented by: Ketamine HCl (Ketalar) Confirm Administered Dose 500 mg .ROUTE .STK-MED ONE Stop: 12/01/19 14:35 Ketorolac Tromethamine (Toradol) Confirm Administered Dose 30 mg .ROUTE .STK-MED ONE Stop: 12/01/19 14:32 Lidocaine (Xylocaine-Mpf 2%) Confirm Administered Dose 5 ml .ROUTE .STK-MED ONE Stop: 12/01/19 14:32 Midazolam HCl (Versed 1 Mg/Ml) Confirm Administered Dose 2 mg .ROUTE .STK-MED ONE Stop: 12/01/19 14:31 Ondansetron HCl (Zofran) Confirm Administered Dose 4 mg .ROUTE .STK-MED ONE Stop: 12/01/19 14:32 Oxycodone HCl (Oxycodone) 10 mg PO ONETIME ONE Stop: 12/01/19 09:11 Last Admin: 12/01/19 09:25 Dose: 10 mg Documented by: Phenylephrine HCl (Stephen-Synephrine) Confirm Administered Dose 10 mg .ROUTE .STK- MED ONE Stop: 12/01/19 14:06 Potassium Chloride (Klor-Con M20) 40 meq PO ONETIME ONE Stop: 12/01/19 21:05 Last Admin: 12/01/19 21:34 Dose: 40 meq Documented by: Propofol (Diprivan 20 Ml) Confirm Administered Dose 200 mg .ROUTE .STK-MED ONE Stop: 12/01/19 14:31 Sodium Chloride (Saline Flush) 10 ml FLUSH ASDIRECTED PRN PRN Reason: Keep Vein Open Last Admin: 12/01/19 08:09 Dose: 10 ml Documented by: - Exam Quality Assessment: Supplemental Oxygen, Urine Catheter, DVT Prophylaxis General: Alert, Oriented, Cooperative Lungs: Clear to Auscultation, Normal Respiratory Effort Cardiovascular: Regular Rate, Regular Rhythm, Murmurs GI/Abdominal Exam: Normal Bowel Sounds, Soft, Non-Tender Back Exam: Normal Inspection, Full Range of Motion Extremities: Normal Inspection, Normal Range of Motion, Non-Tender, No Pedal Edema Peripheral Pulses: 2+: Posterior Tibial (L), Posterior Tibial (R), Dorsalis Pedis (L), Dorsalis Pedis (R) Wound/Incisions: Dressing Dry and Intact Neurological: No New Focal Deficit Psy/Mental Status: Alert, Normal Affect, Normal Mood Sepsis Event Note - Evaluation Sepsis Screening Result: No Definite Risk - Focused Exam Vital Signs: Vital Signs Temp Pulse Resp BP Pulse Ox 12/02/19 07:04 97.6 F 61 12 112/53 L 98 12/02/19 04:46 97.1 F 81 18 107/43 L 90 L 12/01/19 23:40 97.3 F 66 16 101/48 L 99 12/01/19 22:00 98.2 F 70 18 110/68 98 12/01/19 21:00 98.2 F 82 16 106/51 L 99 12/01/19 20:11 96.7 F L 58 L 12 121/57 L 98 Date Exam was Performed: 12/02/19 Time Exam was Performed: 11:05 - Problem List & Annotations (1) Subcapital fracture of right femur SNOMED Code(s): 272185518, 71582817892115921 Code(s): S72.011A - UNSP INTRACAPSULAR FRACTURE OF RIGHT FEMUR, INIT FOR CLOS FX Status: Acute Current Visit: Yes Qualifiers: Encounter type: initial encounter Fracture type: closed Qualified Code(s): S72.011A - Unspecified intracapsular fracture of right femur, initial encounter for closed fracture (2) Fall SNOMED Code(s): 4436765, 746622690 Code(s): W19.XXXA - UNSPECIFIED FALL, INITIAL ENCOUNTER Status: Acute Current Visit: Yes (3) HTN (hypertension) SNOMED Code(s): 45959944 Code(s): I10 - ESSENTIAL (PRIMARY) HYPERTENSION Status: Chronic Current Visit: Yes (4) Dyslipidemia SNOMED Code(s): 782223396 Code(s): E78.5 - HYPERLIPIDEMIA, UNSPECIFIED Status: Chronic Current Visit: Yes (5) Hypothyroidism SNOMED Code(s): 65360676 Code(s): E03.9 - HYPOTHYROIDISM, UNSPECIFIED Status: Chronic Current Visit: Yes (6) GI bleeding SNOMED Code(s): 66944635 Code(s): K92.2 - GASTROINTESTINAL HEMORRHAGE, UNSPECIFIED Status: Chronic Current Visit: Yes Qualifiers: GI bleed type/associated pathology: melena Qualified Code(s): K92.1 - Melena (7) Compression fracture SNOMED Code(s): 736343065 Code(s): TDW2699 - Status: Chronic Current Visit: Yes - Problem List Review Problem List Initiated/Reviewed/Updated: Yes - My Orders Last 24 Hours: My Active Orders 12/01/19 10:32 Telemetry Monitoring [Cardiac Monitoring] [RC] Q8H 12/01/19 10:38 Echo Comp wo Cont [US] Urgent 12/01/19 10:39 Antiembolic Devices [RC] PER UNIT ROUTINE Intake and Output [RC] Q12H Oxygen Therapy [RC] PRN VTE/DVT Education [RC] PER UNIT ROUTINE Vital Signs [RC] Q4H Consult to Physician [CONS] Routine Docusate Sodium [Colace] 100 mg PO BID PRN Morphine Sulfate [Morphine] 2 mg IVPUSH Q2H PRN Ondansetron [Zofran] 4 mg IVPUSH Q4H PRN Sequential Compression Device [OM.PC] Per Unit Routine 12/01/19 10:41 Notify Provider Consults [RC] ASDIRECTED 12/01/19 10:45 Sodium Chloride 0.9% [Normal Saline] 1,000 ml IV Q13H 12/01/19 10:55 CULTURE URINE [RM] Routine 12/01/19 11:22 Resuscitation Status Routine 12/01/19 11:30 cefTRIAXone [Rocephin in Dextrose,Iso-Osm 1 GM/50 ML] 1 gm Premix Bag 1 bag IV Q24H 12/01/19 12:30 Pantoprazole [ProTONIX IV] 40 mg Sodium Chloride 0.9% [Normal Saline] 10 ml IV Q24H 12/01/19 17:00 Ferrous Sulfate 325 mg PO BIDMEALS 12/01/19 21:00 atorvaSTATin [Lipitor] 20 mg PO BEDTIME 12/02/19 07:00 Levothyroxine 25 mcg PO DAILY@0700 12/02/19 09:00 Calcium Carbonate/Vitamin D3 [Caltrate 600+D 1500 MG-400 Units] 1 tab PO DAILY PARoxetine [Paxil] 10 mg PO DAILY 12/03/19 05:11 BASIC METABOLIC PANEL,BMP [CHEM] AM CBC WITH AUTO DIFF [HEME] AM MAGNESIUM [CHEM] AM PHOSPHORUS [CHEM] AM 12/04/19 05:11 BASIC METABOLIC PANEL,BMP [CHEM] AM CBC WITH AUTO DIFF [HEME] AM MAGNESIUM [CHEM] AM PHOSPHORUS [CHEM] AM - Plan Plan:: This 84 year old female admitted s/p fall and noted to have subcapital fracture of R hip 1. Subcapital fracture R hip - Dr Alva, Orthopedics consulted, OR yesterday afternoon. - Continue Pain control, switch to PO today monitor. - Calcium/Vitamin D daily - Hbg 9.3 today. 2. 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 This was not changed yesterday. Will change out this morning. 3. Fall: - Monitor on telemetry - ECHO results called from Dr Frye last evening, reports moderate to severe aortic stenosis and severe pulmonary hypertension. - PT/OT after surgery - Will likely need to return to SNF for at least rehabilitation 4. HTN/dyslipidemia/hypothyroidism: - Renal function near baseline. - BP softer, will hold meds today and monitor - Continue levothyroxine, TSH stable at 3.43 5. Recent GI bleed - October 2019 melena noted, EGD refused by patient but colonoscopy done in [place]. No source of bleeding noted since patient refused scope. Hgb remains stable. - Denies dark stools. - Protonix daily for now. - Reports dark stools, but does take iron BID. Denies bloody stools - Monitor hgb closely and likely no pharmacologic VTE prophylaxis. VTE prophylaxis: SCDs Consults: Dr Alva, orthopedics Dispo: 3 days, likely will need placement which [facility] agrees with. Will discuss with social work. Spoke with Dr Mera already regarding admission and need for placement
[2019-12-02] MEDS: Ferrous Sulfate 325 MG Tab PO SCH ×2 (08:44→17:51)
[2019-12-02] MEDS: Docusate Sodium 100 MG Cap PO PRN ×2 (08:45→20:46)
[2019-12-02] MEDS: Calcium Carbonate/Vitamin D3 1500 MG-400 Units Tab PO SCH (08:45)
[2019-12-02] MEDS: Aspirin 325 MG Tab.EC PO SCH (08:45)
[2019-12-02] MEDS: Morphine 2 MG/ML SYRINGE IVPUSH PRN ×2 (08:58→20:59)
[2019-12-02] MEDS: cefTRIAXone 1 GM in Premix Bag 1 BAG IV SCH (11:00)
[2019-12-02] MEDS: Pantoprazole 40 MG in Sodium Chloride 0.9% 10 ML IV SCH (12:55)
--- NOTE | 2019-12-02 15:19 | PCM.SURGPN ---
- General Info Date of Service: 12/02/19 (0815) Date of Surgery/Procedure: 12/01/19 POD#: 1 Post-Op Diagnosis: subcapital right hip fracture s/p RIGHT HIP HEMIARTHROPLASTY Admission Diagnosis/Problem: Hip fracture requiring operative repair Functional Status: Reports: Pain Controlled, Tolerating Diet (tolerating clear liquids without n/v) - Review of Systems General: Denies: Fever Pulmonary: Denies: Shortness of Breath Gastrointestinal: Denies: Abdominal Pain, Nausea, Vomiting Musculoskeletal: Reports: Joint Pain (right hip pain) - Patient Data Vitals - Most Recent: Last Vital Signs Temp 36.8 C 12/02/19 11:36 Pulse 60 12/02/19 11:36 Resp 14 12/02/19 11:36 BP 120/51 L 12/02/19 11:36 Pulse Ox 99 12/02/19 11:36 Weight - Most Recent: 54.431 kg I&O - Last 24 Hours: Intake & Output 12/02/19 12/02/19 12/02/19 06:59 14:59 22:59 Intake Total 1120 433 Output Total 460 Balance 660 433 Lab Results Last 24 Hrs: Laboratory Results - last 24 hr 12/01/19 12/01/19 12/02/19 Range/Units 16:15 21:14 05:48 WBC 12.87 H (4.0-11.0) K/uL RBC 2.88 L (4.30-5.90) M/uL Hgb 9.3 L (12.0-16.0) g/dL Hct 29.0 L (36.0-46.0) % MCV 100.7 H (80.0-98.0) fL MCH 32.3 H (27.0-32.0) pg MCHC 32.1 (31.0-37.0) g/dL RDW Std Deviation 56.7 (28.0-62.0) fl RDW Coeff of Rossana 15 (11.0-15.0) % Plt Count 163 (150-400) K/uL MPV 9.80 (7.40-12.00) fL Add Manual Diff YES Neutrophils % (Manual) 75 (48.0-80.0) % Band Neutrophils % 20 % Lymphocytes % (Manual) 3 L (16.0-40.0) % Monocytes % (Manual) 2 (0.0-15.0) % Nucleated RBC % 0.0 /100WBC Absolute Seg Neuts 9.7 H (1.4-5.7) Band Neutrophils # 2.6 Lymphocytes # (Manual) 0.4 L (0.6-2.4) Monocytes # (Manual) 0.3 (0.0-0.8) Nucleated RBCs # 0 K/uL Sodium (136-145) mmol/L Potassium (3.5-5.1) mmol/L Chloride (98-107) mmol/L Carbon Dioxide (21.0-32.0) mmol/L BUN (7.0-18.0) mg/dL Creatinine (0.6-1.0) mg/dL Est Cr Clr Drug Dosing mL/min Estimated GFR (MDRD) ml/min Glucose (74-106) mg/dL Calcium (8.5-10.1) mg/dL Phosphorus (2.6-4.7) mg/dL Magnesium 1.6 L (1.8-2.4) mg/dL SARS Virus RNA (PCR) NEGATIVE (NEGATIVE) 12/02/19 Range/Units 05:48 WBC (4.0-11.0) K/uL RBC (4.30-5.90) M/uL Hgb (12.0-16.0) g/dL Hct (36.0-46.0) % MCV (80.0-98.0) fL MCH (27.0-32.0) pg MCHC (31.0-37.0) g/dL RDW Std Deviation (28.0-62.0) fl RDW Coeff of Rossana (11.0-15.0) % Plt Count (150-400) K/uL MPV (7.40-12.00) fL Add Manual Diff Neutrophils % (Manual) (48.0-80.0) % Band Neutrophils % % Lymphocytes % (Manual) (16.0-40.0) % Monocytes % (Manual) (0.0-15.0) % Nucleated RBC % /100WBC Absolute Seg Neuts (1.4-5.7) Band Neutrophils # Lymphocytes # (Manual) (0.6-2.4) Monocytes # (Manual) (0.0-0.8) Nucleated RBCs # K/uL Sodium 141 (136-145) mmol/L Potassium 5.3 H (3.5-5.1) mmol/L Chloride 106 (98-107) mmol/L Carbon Dioxide 26.2 (21.0-32.0) mmol/L BUN 29 H (7.0-18.0) mg/dL Creatinine 1.4 H (0.6-1.0) mg/dL Est Cr Clr Drug Dosing 26.62 mL/min Estimated GFR (MDRD) 36.0 ml/min Glucose 107 H (74-106) mg/dL Calcium 7.8 L (8.5-10.1) mg/dL Phosphorus 4.6 (2.6-4.7) mg/dL Magnesium 2.8 H (1.8-2.4) mg/dL SARS Virus RNA (PCR) (NEGATIVE) Med Orders - Current: Current Medications Hydrocodone Bitart/Acetaminophen ([place] 325-5 Mg) 1 tab PO Q4H PRN PRN Reason: Pain Aspirin (Ecotrin) 325 mg PO DAILY [facility] Last Admin: 12/02/19 08:45 Dose: 325 mg Documented by: Atorvastatin Calcium (Lipitor) 20 mg PO BEDTIME [facility] Last Admin: 12/01/19 20:09 Dose: 20 mg Documented by: Calcium Carbonate (Caltrate 600+D 1500 Mg-400 Units) 1 tab PO DAILY [facility] Last Admin: 12/02/19 08:45 Dose: 1 tab Documented by: Docusate Sodium (Colace) 100 mg PO BID PRN PRN Reason: Constipation Last Admin: 12/02/19 08:45 Dose: 100 mg Documented by: Ferrous Sulfate (Ferrous Sulfate) 325 mg PO BIDMEALS [facility] Last Admin: 12/02/19 08:44 Dose: 325 mg Documented by: Ceftriaxone Sodium/Dextrose 1 (gm/ Premix) 50 mls @ 100 mls/hr IV Q24H [facility] Last Admin: 12/02/19 11:00 Dose: 100 mls/hr Documented by: Pantoprazole Sodium 40 mg/ (Sodium Chloride) 10 mls @ 300 mls/hr IV Q24H [facility] Last Admin: 12/02/19 12:55 Dose: 300 mls/hr Documented by: Levothyroxine Sodium (Levothyroxine) 25 mcg PO DAILY@0700 [facility] Last Admin: 12/02/19 06:41 Dose: 25 mcg Documented by: Morphine Sulfate (Morphine) 2 mg IVPUSH Q2H PRN PRN Reason: Pain (severe 7-10) Last Admin: 12/02/19 08:58 Dose: 2 mg Documented by: Ondansetron HCl (Zofran) 4 mg IVPUSH Q4H PRN PRN Reason: Nausea Paroxetine HCl (Paxil) 10 mg PO DAILY [facility] Last Admin: 12/02/19 08:45 Dose: 10 mg Documented by: Sodium Chloride (Saline Flush) 2.5 ml FLUSH ASDIRECTED PRN PRN Reason: Keep Vein Open Last Admin: 12/01/19 08:09 Dose: 2.5 ml Documented by: Discontinued Medications Acetaminophen (Tylenol Extra Strength) 1,000 mg PO ONETIME ONE Stop: 12/01/19 07:41 Last Admin: 12/01/19 08:07 Dose: 1,000 mg Documented by: Bupivacaine HCl (Sensorcaine-Mpf 0.5%) Confirm Administered Dose 10 ml .ROUTE .STK-MED ONE Stop: 12/01/19 14:27 Fentanyl (Fentanyl) 25 mcg IVPUSH ONETIME ONE Stop: 12/01/19 07:41 Last Admin: 12/01/19 08:07 Dose: 25 mcg Documented by: Fentanyl (Sublimaze) Confirm Administered Dose 100 mcg .ROUTE .STK-MED ONE Stop: 12/01/19 14:31 Glycopyrrolate (Robinul) Confirm Administered Dose 0.2 mg .ROUTE .STK-MED ONE Stop: 12/01/19 14:32 Sodium Chloride (Normal Saline) 1,000 mls @ 1,000 mls/hr IV .Bolus ONE Stop: 12/01/19 09:22 Last Admin: 12/01/19 08:36 Dose: 1,000 mls/hr Documented by: Sodium Chloride (Normal Saline) 1,000 mls @ 75 mls/hr IV Q13H [facility] Last Admin: 12/02/19 02:45 Dose: 75 mls/hr Documented by: Cefazolin Sodium/Dextrose 1 gm (/ Premix) 50 mls @ 100 mls/hr IV Q8H [facility] Stop: 12/02/19 06:29 Last Admin: 12/02/19 05:48 Dose: 100 mls/hr Documented by: Magnesium Sulfate 2 gm/ Premix 50 mls @ 50 mls/hr IV ONETIME ONE Stop: 12/02/19 03:39 Last Admin: 12/02/19 02:50 Dose: 50 mls/hr Documented by: Ketamine HCl (Ketalar) Confirm Administered Dose 500 mg .ROUTE .STK-MED ONE Stop: 12/01/19 14:35 Ketorolac Tromethamine (Toradol) Confirm Administered Dose 30 mg .ROUTE .STK-MED ONE Stop: 12/01/19 14:32 Lidocaine (Xylocaine-Mpf 2%) Confirm Administered Dose 5 ml .ROUTE .STK-MED ONE Stop: 12/01/19 14:32 Midazolam HCl (Versed 1 Mg/Ml) Confirm Administered Dose 2 mg .ROUTE .STK-MED ONE Stop: 12/01/19 14:31 Ondansetron HCl (Zofran) Confirm Administered Dose 4 mg .ROUTE .STK-MED ONE Stop: 12/01/19 14:32 Oxycodone HCl (Oxycodone) 10 mg PO ONETIME ONE Stop: 12/01/19 09:11 Last Admin: 12/01/19 09:25 Dose: 10 mg Documented by: Phenylephrine HCl (Stephen-Synephrine) Confirm Administered Dose 10 mg .ROUTE .STK- MED ONE Stop: 12/01/19 14:06 Potassium Chloride (Klor-Con M20) 40 meq PO ONETIME ONE Stop: 12/01/19 21:05 Last Admin: 12/01/19 21:34 Dose: 40 meq Documented by: Propofol (Diprivan 20 Ml) Confirm Administered Dose 200 mg .ROUTE .STK-MED ONE Stop: 12/01/19 14:31 Sodium Chloride (Saline Flush) 10 ml FLUSH ASDIRECTED PRN PRN Reason: Keep Vein Open Last Admin: 12/01/19 08:09 Dose: 10 ml Documented by: - Exam Wound/Incisions: Dressing Dry and Intact (to right hip), No Drainage Quality Assessment: Urine Catheter, DVT Prophylaxis (Ecotrin to start today, SCDs on bilaterally) General: Alert, Cooperative, No Acute Distress Lungs: Normal Respiratory Effort Cardiovascular: Other (PP2+) Extremities: No Pedal Edema Neurological: Normal Speech (asleep upon entering room. Easily arousable, conversational, pleasant) Sepsis Event Note - Evaluation Sepsis Screening Result: No Definite Risk - Focused Exam Vital Signs: Vital Signs Temp Pulse Resp BP Pulse Ox 12/02/19 11:36 36.8 C 60 14 120/51 L 99 12/02/19 07:04 36.4 C 61 12 112/53 L 98 12/02/19 04:46 36.2 C 81 18 107/43 L 90 L Date Exam was Performed: 12/02/19 Time Exam was Performed: 15:12 - Problem List Review Problem List Initiated/Reviewed/Updated: Yes - My Orders Last 24 Hours: Active Orders 24 hr Category Date Time Status Cooling Warming Measures [RC] ASDIRECTED Care 12/01/19 17:13 Active Insert Urinary Catheter [OM.PC] Q24H Care 12/02/19 08:45 Ordered Remove Chappell Catheter [Urinary Catheter Removal] [RC] Care 12/02/19 08:45 Active PER UNIT ROUTINE Urinary Catheter Assessment [RC] ASDIRECTED Care 12/02/19 08:45 Active PT Evaluation and Treatment [CONS] Routine Cons 12/01/19 17:06 Active Regular Diet [DIET] Diet 12/02/19 Breakfast Active BASIC METABOLIC PANEL,BMP [CHEM] AM Lab 12/03/19 05:11 Ordered BASIC METABOLIC PANEL,BMP [CHEM] AM Lab 12/04/19 05:11 Ordered CBC WITH AUTO DIFF [HEME] AM Lab 12/03/19 05:11 Ordered CBC WITH AUTO DIFF [HEME] AM Lab 12/04/19 05:11 Ordered MAGNESIUM [CHEM] AM Lab 12/03/19 05:11 Ordered MAGNESIUM [CHEM] AM Lab 12/04/19 05:11 Ordered PHOSPHORUS [CHEM] AM Lab 12/03/19 05:11 Ordered PHOSPHORUS [CHEM] AM Lab 12/04/19 05:11 Ordered Acetaminophen/HYDROcodone [Macon 325-5 MG] Med 12/02/19 09:43 Active 1 tab PO Q4H PRN Aspirin [Ecotrin] Med 12/02/19 09:00 Active 325 mg PO DAILY Calcium Carbonate/Vitamin D3 [Caltrate 600+D 1500 MG- Med 12/02/19 09:00 Active 400 Units] 1 tab PO DAILY Ferrous Sulfate Med 12/01/19 17:00 Active 325 mg PO BIDMEALS Levothyroxine Med 12/02/19 07:00 Active 25 mcg PO DAILY@0700 PARoxetine [Paxil] Med 12/02/19 09:00 Active 10 mg PO DAILY atorvaSTATin [Lipitor] Med 12/01/19 21:00 Active 20 mg PO BEDTIME Ice Therapy [OM.PC] Routine Oth 12/01/19 17:13 Ordered Medication Orders Hydrocodone Bitart/Acetaminophen ([place] 325-5 Mg) 1 tab PO Q4H PRN PRN Reason: Pain Aspirin (Ecotrin) 325 mg PO DAILY [facility] Last Admin: 12/02/19 08:45 Dose: 325 mg Documented by: RASHAAD Cosigned by: NIDA Atorvastatin Calcium (Lipitor) 20 mg PO BEDTIME [facility] Last Admin: 12/01/19 20:09 Dose: 20 mg Documented by: ESVIN Cosigned by: [id number] Calcium Carbonate (Caltrate 600+D 1500 Mg-400 Units) 1 tab PO DAILY [facility] Last Admin: 12/02/19 08:45 Dose: 1 tab Documented by: RASHAAD Cosigned by: NIDA Docusate Sodium (Colace) 100 mg PO BID PRN PRN Reason: Constipation Last Admin: 12/02/19 08:45 Dose: 100 mg Documented by: RASHAAD Cosigned by: NIDA Ferrous Sulfate (Ferrous Sulfate) 325 mg PO BIDMEALS [facility] Last Admin: 12/02/19 08:44 Dose: 325 mg Documented by: RASHAAD Cosigned by: NIDA Admin: 12/01/19 18:07 Dose: Not Given Documented by: DONN Ceftriaxone Sodium/Dextrose 1 (gm/ Premix) 50 mls @ 100 mls/hr IV Q24H [facility] Last Admin: 12/02/19 11:00 Dose: 100 mls/hr Documented by: Infusion: 12/01/19 12:23 Dose: 100 mls/hr Documented by: Admin: 12/01/19 11:53 Dose: 100 mls/hr Documented by: DONN Pantoprazole Sodium 40 mg/ (Sodium Chloride) 10 mls @ 300 mls/hr IV Q24H [facility] Last Admin: 12/02/19 12:55 Dose: 300 mls/hr Documented by: Infusion: 12/01/19 13:16 Dose: 300 mls/hr Documented by: Admin: 12/01/19 13:14 Dose: 300 mls/hr Documented by: DONN Levothyroxine Sodium (Levothyroxine) 25 mcg PO DAILY@0700 [facility] Last Admin: 12/02/19 06:41 Dose: 25 mcg Documented by: MARCELLO Morphine Sulfate (Morphine) 2 mg IVPUSH Q2H PRN PRN Reason: Pain (severe 7-10) Last Admin: 12/02/19 08:58 Dose: 2 mg Documented by: Admin: 12/01/19 21:26 Dose: 2 mg Documented by: MARCELLO Ondansetron HCl (Zofran) 4 mg IVPUSH Q4H PRN PRN Reason: Nausea Paroxetine HCl (Paxil) 10 mg PO DAILY [facility] Last Admin: 12/02/19 08:45 Dose: 10 mg Documented by: RASHAAD Cosigned by: NIDA Sodium Chloride (Saline Flush) 2.5 ml FLUSH ASDIRECTED PRN PRN Reason: Keep Vein Open Last Admin: 12/01/19 08:09 Dose: 2.5 ml Documented by: GENESIS - Assessment Assessment (Free Text/Narrative):: 1) s/p Right hip hemiarthroplasty - Plan Plan (Free Text/Narrative):: Neris resting in bed this morning, states pain is controlled and she is comfortable. Afebrile. Hg 9.3 DVT prophylaxis : Ecotrin to start today. Ancef 1 gm IV q8h x 2 additional doses completed. Surgical dressing to right hip CDI. Hospitalist will advance her diet. Hospitalist services appreciated for medical management. Case Management working on rehabiltation center. Neris will be seen by PT today.
[2019-12-02] MEDS: Acetaminophen/HYDROcodone 325-5 MG Tab PO PRN (17:51)
[2019-12-02] MEDS: atorvaSTATin 20 MG Tab PO SCH (20:46)
[2019-12-03] MEDS: Morphine 2 MG/ML SYRINGE IVPUSH PRN ×2 (02:48→06:25)
[2019-12-03] MEDS: Levothyroxine 25 MCG Tab PO SCH (06:17)
[2019-12-03 06:31] LABS: CARBON DIOXIDE,CO2 28.4 mmol/L (21.0-32.0); POTASSIUM,K 4.8 mmol/L (3.5-5.1)
[2019-12-03] MEDS: Ferrous Sulfate 325 MG Tab PO SCH ×2 (08:33→17:28)
[2019-12-03] MEDS: Aspirin 325 MG Tab.EC PO SCH (08:33)
[2019-12-03] MEDS: Calcium Carbonate/Vitamin D3 1500 MG-400 Units Tab PO SCH (08:34)
[2019-12-03] MEDS: Docusate Sodium 100 MG Cap PO PRN (08:34)
--- NOTE | 2019-12-03 08:45 | PCM.PN ---
- General Info Date of Service: 12/03/19 Admission Dx/Problem (Free Text): Admission Diagnosis/Problem Admission Diagnosis/Problem Subcapital fracture of right hip Subjective Update: Feeling tired this morning. NO chest pain or SOB. No dizziness. Mainly feels very tired. No abdominal pain. No BM Functional Status: Reports: Pain Controlled, Tolerating Diet - Review of Systems General: Reports: Weakness, Fatigue HEENT: Reports: No Symptoms. Denies: Headaches, Visual Changes Pulmonary: Reports: No Symptoms. Denies: Shortness of Breath Cardiovascular: Reports: No Symptoms, Chest Pain Gastrointestinal: Reports: Constipation, Flatus. Denies: Abdominal Pain, Nausea, Vomiting Genitourinary: Reports: No Symptoms. Denies: Dysuria, Frequency, Burning Musculoskeletal: Reports: No Symptoms Skin: Reports: No Symptoms Neurological: Reports: No Symptoms Psychiatric: Reports: No Symptoms - Patient Data Vitals - Most Recent: Last Vital Signs Temp 99 F 12/03/19 08:00 Pulse 79 12/03/19 08:00 Resp 12 12/03/19 08:00 BP 99/42 L 12/03/19 08:00 Pulse Ox 96 12/03/19 08:00 Weight - Most Recent: 54.431 kg I&O - Last 24 Hours: Intake & Output 12/02/19 12/03/19 12/03/19 22:59 06:59 14:59 Intake Total 600 400 Output Total 275 380 Balance 325 20 Lab Results Last 24 Hours: Laboratory Results - last 24 hr 12/01/19 12/03/19 12/03/19 Range/Units 07:40 05:43 05:43 WBC 9.04 (4.0-11.0) K/uL RBC 2.21 L (4.30-5.90) M/uL Hgb 7.1 L (12.0-16.0) g/dL Hct 21.8 L (36.0-46.0) % MCV 98.6 H (80.0-98.0) fL MCH 32.1 H (27.0-32.0) pg MCHC 32.6 (31.0-37.0) g/dL RDW Std Deviation 55.5 (28.0-62.0) fl RDW Coeff of Rossana 15 (11.0-15.0) % Plt Count 137 L (150-400) K/uL MPV 10.00 (7.40-12.00) fL Neut % (Auto) 81.8 H (48.0-80.0) % Lymph % (Auto) 8.1 L (16.0-40.0) % Schley % (Auto) 8.1 (0.0-15.0) % Eos % (Auto) 1.7 (0.0-7.0) % Baso % (Auto) 0.3 (0.0-1.5) % Neut # (Auto) 7.4 H (1.4-5.7) K/uL Lymph # (Auto) 0.7 (0.6-2.4) K/uL Schley # (Auto) 0.7 (0.0-0.8) K/uL Eos # (Auto) 0.2 (0.0-0.7) K/uL Baso # (Auto) 0.0 (0.0-0.1) K/uL Nucleated RBC % 0.0 /100WBC Nucleated RBCs # 0 K/uL Sodium 138 (136-145) mmol/L Potassium 4.8 (3.5-5.1) mmol/L Chloride 104 (98-107) mmol/L Carbon Dioxide 28.4 (21.0-32.0) mmol/L BUN 32 H (7.0-18.0) mg/dL Creatinine 1.4 H (0.6-1.0) mg/dL Est Cr Clr Drug Dosing 26.62 mL/min Estimated GFR (MDRD) 36.0 ml/min Glucose 114 H (74-106) mg/dL Calcium 7.4 L (8.5-10.1) mg/dL Phosphorus 2.9 (2.6-4.7) mg/dL Magnesium 2.2 (1.8-2.4) mg/dL Crossmatch See Detail Med Orders - Current: Current Medications Hydrocodone Bitart/Acetaminophen ([place] 325-5 Mg) 1 tab PO Q4H PRN PRN Reason: Pain Last Admin: 12/02/19 17:51 Dose: 1 tab Documented by: Aspirin (Ecotrin) 325 mg PO DAILY [facility] Last Admin: 12/03/19 08:33 Dose: 325 mg Documented by: Atorvastatin Calcium (Lipitor) 20 mg PO BEDTIME [facility] Last Admin: 12/02/19 20:46 Dose: 20 mg Documented by: Calcium Carbonate (Caltrate 600+D 1500 Mg-400 Units) 1 tab PO DAILY [facility] Last Admin: 12/03/19 08:34 Dose: 1 tab Documented by: Docusate Sodium (Colace) 100 mg PO BID PRN PRN Reason: Constipation Last Admin: 12/03/19 08:34 Dose: 100 mg Documented by: Ferrous Sulfate (Ferrous Sulfate) 325 mg PO BIDMEALS [facility] Last Admin: 12/03/19 08:33 Dose: 325 mg Documented by: Ceftriaxone Sodium/Dextrose 1 (gm/ Premix) 50 mls @ 100 mls/hr IV Q24H [facility] Last Admin: 12/02/19 11:00 Dose: 100 mls/hr Documented by: Pantoprazole Sodium 40 mg/ (Sodium Chloride) 10 mls @ 300 mls/hr IV Q24H [facility] Last Admin: 12/02/19 12:55 Dose: 300 mls/hr Documented by: Levothyroxine Sodium (Levothyroxine) 25 mcg PO DAILY@0700 [facility] Last Admin: 12/03/19 06:17 Dose: 25 mcg Documented by: Morphine Sulfate (Morphine) 2 mg IVPUSH Q2H PRN PRN Reason: Pain (severe 7-10) Last Admin: 12/03/19 06:25 Dose: 2 mg Documented by: Ondansetron HCl (Zofran) 4 mg IVPUSH Q4H PRN PRN Reason: Nausea Paroxetine HCl (Paxil) 10 mg PO DAILY [facility] Last Admin: 12/03/19 08:34 Dose: 10 mg Documented by: Sodium Chloride (Saline Flush) 2.5 ml FLUSH ASDIRECTED PRN PRN Reason: Keep Vein Open Last Admin: 12/01/19 08:09 Dose: 2.5 ml Documented by: Discontinued Medications Acetaminophen (Tylenol Extra Strength) 1,000 mg PO ONETIME ONE Stop: 12/01/19 07:41 Last Admin: 12/01/19 08:07 Dose: 1,000 mg Documented by: Bupivacaine HCl (Sensorcaine-Mpf 0.5%) Confirm Administered Dose 10 ml .ROUTE .S TK-MED ONE Stop: 12/01/19 14:27 Fentanyl (Fentanyl) 25 mcg IVPUSH ONETIME ONE Stop: 12/01/19 07:41 Last Admin: 12/01/19 08:07 Dose: 25 mcg Documented by: Fentanyl (Sublimaze) Confirm Administered Dose 100 mcg .ROUTE .STK-MED ONE Stop: 12/01/19 14:31 Glycopyrrolate (Robinul) Confirm Administered Dose 0.2 mg .ROUTE .STK-MED ONE Stop: 12/01/19 14:32 Sodium Chloride (Normal Saline) 1,000 mls @ 1,000 mls/hr IV .Bolus ONE Stop: 12/01/19 09:22 Last Admin: 12/01/19 08:36 Dose: 1,000 mls/hr Documented by: Sodium Chloride (Normal Saline) 1,000 mls @ 75 mls/hr IV Q13H [facility] Last Admin: 12/02/19 02:45 Dose: 75 mls/hr Documented by: Cefazolin Sodium/Dextrose 1 gm (/ Premix) 50 mls @ 100 mls/hr IV Q8H [facility] Stop: 12/02/19 06:29 Last Admin: 12/02/19 05:48 Dose: 100 mls/hr Documented by: Magnesium Sulfate 2 gm/ Premix 50 mls @ 50 mls/hr IV ONETIME ONE Stop: 12/02/19 03:39 Last Admin: 12/02/19 02:50 Dose: 50 mls/hr Documented by: Ketamine HCl (Ketalar) Confirm Administered Dose 500 mg .ROUTE .STK-MED ONE Stop: 12/01/19 14:35 Ketorolac Tromethamine (Toradol) Confirm Administered Dose 30 mg .ROUTE .STK-MED ONE Stop: 12/01/19 14:32 Lidocaine (Xylocaine-Mpf 2%) Confirm Administered Dose 5 ml .ROUTE .STK-MED ONE Stop: 12/01/19 14:32 Midazolam HCl (Versed 1 Mg/Ml) Confirm Administered Dose 2 mg .ROUTE .STK-MED ONE Stop: 12/01/19 14:31 Ondansetron HCl (Zofran) Confirm Administered Dose 4 mg .ROUTE .STK-MED ONE Stop: 12/01/19 14:32 Oxycodone HCl (Oxycodone) 10 mg PO ONETIME ONE Stop: 12/01/19 09:11 Last Admin: 12/01/19 09:25 Dose: 10 mg Documented by: Phenylephrine HCl (Stephen-Synephrine) Confirm Administered Dose 10 mg .ROUTE .STK- MED ONE Stop: 12/01/19 14:06 Potassium Chloride (Klor-Con M20) 40 meq PO ONETIME ONE Stop: 12/01/19 21:05 Last Admin: 12/01/19 21:34 Dose: 40 meq Documented by: Propofol (Diprivan 20 Ml) Confirm Administered Dose 200 mg .ROUTE .STK-MED ONE Stop: 12/01/19 14:31 Sodium Chloride (Saline Flush) 10 ml FLUSH ASDIRECTED PRN PRN Reason: Keep Vein Open Last Admin: 12/01/19 08:09 Dose: 10 ml Documented by: - Exam Quality Assessment: Supplemental Oxygen, Urine Catheter, DVT Prophylaxis General: Alert, Oriented, Cooperative, No Acute Distress, Other (pallor) Lungs: Clear to Auscultation, Normal Respiratory Effort Cardiovascular: Regular Rate, Regular Rhythm, Murmurs GI/Abdominal Exam: Normal Bowel Sounds, Soft, Non-Tender Back Exam: Normal Inspection, Full Range of Motion Extremities: Normal Inspection, Normal Range of Motion, Non-Tender, No Pedal Edema Wound/Incisions: Dressing Dry and Intact, No Drainage. No: Erythema Neurological: No New Focal Deficit Psy/Mental Status: Alert, Normal Affect, Normal Mood Sepsis Event Note - Evaluation Sepsis Screening Result: No Definite Risk - Focused Exam Vital Signs: Vital Signs Temp Pulse Resp BP BP Pulse Ox 12/03/19 08:00 99 F 79 12 99/42 L 96 12/03/19 04:00 98.6 F 81 17 98/50 L 100 12/03/19 00:00 110/50 L 12/02/19 23:45 97.5 F 69 16 94/49 L 100 Date Exam was Performed: 12/03/19 Time Exam was Performed: 10:14 - Problem List & Annotations (1) Subcapital fracture of right femur SNOMED Code(s): 390732940, [id number] Code(s): S72.011A - UNSP INTRACAPSULAR FRACTURE OF RIGHT FEMUR, INIT FOR CLOS FX Status: Acute Current Visit: Yes Qualifiers: Encounter type: initial encounter Fracture type: closed Qualified Code(s): S72.011A - Unspecified intracapsular fracture of right femur, initial encounter for closed fracture (2) Fall SNOMED Code(s): 6020437, 123558191 Code(s): W19.XXXA - UNSPECIFIED FALL, INITIAL ENCOUNTER Status: Acute Current Visit: Yes (3) HTN (hypertension) SNOMED Code(s): 51878519 Code(s): I10 - ESSENTIAL (PRIMARY) HYPERTENSION Status: Chronic Current Visit: Yes (4) Dyslipidemia SNOMED Code(s): 347946234 Code(s): E78.5 - HYPERLIPIDEMIA, UNSPECIFIED Status: Chronic Current Visit: Yes (5) Hypothyroidism SNOMED Code(s): 81682313 Code(s): E03.9 - HYPOTHYROIDISM, UNSPECIFIED Status: Chronic Current Visit: Yes (6) GI bleeding SNOMED Code(s): 80199614 Code(s): K92.2 - GASTROINTESTINAL HEMORRHAGE, UNSPECIFIED Status: Chronic Current Visit: Yes Qualifiers: GI bleed type/associated pathology: melena Qualified Code(s): K92.1 - Melena (7) Compression fracture SNOMED Code(s): 517385870 Code(s): [id number] - Status: Chronic Current Visit: Yes (8) Anemia SNOMED Code(s): 333831889 Code(s): D64.9 - ANEMIA, UNSPECIFIED Status: Acute Current Visit: Yes - Problem List Review Problem List Initiated/Reviewed/Updated: Yes - My Orders Last 24 Hours: My Active Orders 12/02/19 08:45 Remove Chappell Catheter [Urinary Catheter Removal] [RC] PER UNIT ROUTINE Urinary Catheter Assessment [RC] ASDIRECTED 12/02/19 09:00 Calcium Carbonate/Vitamin D3 [Caltrate 600+D 1500 MG-400 Units] 1 tab PO DAILY PARoxetine [Paxil] 10 mg PO DAILY 12/02/19 09:43 Acetaminophen/HYDROcodone [[place] 325-5 MG] 1 tab PO Q4H PRN 12/03/19 07:49 RED BLOOD CELLS LP [BBK] Stat Transfuse Red Blood Cells [COMM] Stat 12/03/19 07:50 Verify Patient Consent Obtain [RC] ASDIRECTED 12/03/19 08:45 Insert Urinary Catheter [OM.PC] Q24H 12/04/19 05:11 BASIC METABOLIC PANEL,BMP [CHEM] AM CBC WITH AUTO DIFF [HEME] AM MAGNESIUM [CHEM] AM PHOSPHORUS [CHEM] AM - Plan Plan:: This 84 year old female admitted s/p fall and noted to have subcapital fracture of R hip 1. Subcapital fracture R hip - Dr Alva, Orthopedics consulted - Continue Pain control, Encourage PO pain control and limit use of IV. - Calcium/Vitamin D daily 2. Anemia: - Hbg 7.1 and is symptomatic. Will transfuse 2 units PRBCs and check hgb 1 hr pos transfusion, goal would be 10. - Has not had any stools, check stool for hemoccult - Check iron studies, supplement Iron as needed. - Change Protonix to q12h IV. 3. UTI: - UC pending - Rocephin 1 gm IV every 24 hours - [facility] 4. Fall: - Monitor on telemetry - ECHO results called from Dr Frye last evening, reports moderate to severe aortic stenosis and severe pulmonary hypertension. - PT/OT after surgery - Will likely need to return to SNF for at least rehabilitation 5. HTN/dyslipidemia/hypothyroidism: - Renal function near baseline. - BP soft, will hold meds today and monitor - Continue levothyroxine 6. Recent GI bleed - October 2019 melena noted, EGD refused by patient but colonoscopy done in [place]. No source of bleeding noted since patient refused scope. - Denies dark stools. VTE prophylaxis: SCDs, ASA per Orthopedics Consults: Dr Alva, orthopedics Dispo: 3 days, likely will need placement which [facility] agrees with. Will discuss with social work. Spoke with Dr Mera already regarding admission and need for placement
[2019-12-03] MEDS ORDERED: Bisacodyl 10 MG Supp RECTAL PRN (09:05)
--- NOTE | 2019-12-03 09:34 | PCM.SURGPN ---
- General Info Date of Service: 12/03/19 (08) Date of Surgery/Procedure: 12/01/19 POD#: 2 Post-Op Diagnosis: Right hip hemiarthroplasty for subcapital fracture right hip Admission Diagnosis/Problem: Hip fracture requiring operative repair Functional Status: Reports: Pain Controlled, Other (feels weak). Denies: Tolerating Diet (feeling nauseated this morning) - Review of Systems General: Denies: Fever Musculoskeletal: Reports: Joint Pain (right hip pain), Other (States she was able to sit at the side of her bed with therapy yesterday) - Patient Data Vitals - Most Recent: Last Vital Signs Temp 37.2 C 12/03/19 08:00 Pulse 79 12/03/19 08:00 Resp 12 12/03/19 08:00 BP 99/42 L 12/03/19 08:00 Pulse Ox 96 12/03/19 08:00 Weight - Most Recent: 54.431 kg I&O - Last 24 Hours: Intake & Output 12/02/19 12/03/19 12/03/19 22:59 06:59 14:59 Intake Total 600 400 Output Total 275 380 Balance 325 20 Lab Results Last 24 Hrs: Laboratory Results - last 24 hr 12/01/19 12/03/19 12/03/19 Range/Units 07:40 05:43 05:43 WBC 9.04 (4.0-11.0) K/uL RBC 2.21 L (4.30-5.90) M/uL Hgb 7.1 L (12.0-16.0) g/dL Hct 21.8 L (36.0-46.0) % MCV 98.6 H (80.0-98.0) fL MCH 32.1 H (27.0-32.0) pg MCHC 32.6 (31.0-37.0) g/dL RDW Std Deviation 55.5 (28.0-62.0) fl RDW Coeff of Rossana 15 (11.0-15.0) % Plt Count 137 L (150-400) K/uL MPV 10.00 (7.40-12.00) fL Neut % (Auto) 81.8 H (48.0-80.0) % Lymph % (Auto) 8.1 L (16.0-40.0) % [place] % (Auto) 8.1 (0.0-15.0) % Eos % (Auto) 1.7 (0.0-7.0) % Baso % (Auto) 0.3 (0.0-1.5) % Neut # (Auto) 7.4 H (1.4-5.7) K/uL Lymph # (Auto) 0.7 (0.6-2.4) K/uL [place] # (Auto) 0.7 (0.0-0.8) K/uL Eos # (Auto) 0.2 (0.0-0.7) K/uL Baso # (Auto) 0.0 (0.0-0.1) K/uL Nucleated RBC % 0.0 /100WBC Nucleated RBCs # 0 K/uL Sodium 138 (136-145) mmol/L Potassium 4.8 (3.5-5.1) mmol/L Chloride 104 (98-107) mmol/L Carbon Dioxide 28.4 (21.0-32.0) mmol/L BUN 32 H (7.0-18.0) mg/dL Creatinine 1.4 H (0.6-1.0) mg/dL Est Cr Clr Drug Dosing 26.62 mL/min Estimated GFR (MDRD) 36.0 ml/min Glucose 114 H (74-106) mg/dL Calcium 7.4 L (8.5-10.1) mg/dL Phosphorus 2.9 (2.6-4.7) mg/dL Magnesium 2.2 (1.8-2.4) mg/dL Blood Type A POSITIVE Antibody Screen NEGATIVE Crossmatch See Detail Med Orders - Current: Current Medications Hydrocodone Bitart/Acetaminophen ([place] 325-5 Mg) 1 tab PO Q4H PRN PRN Reason: Pain Last Admin: 12/02/19 17:51 Dose: 1 tab Documented by: Aspirin (Ecotrin) 325 mg PO DAILY [facility] Last Admin: 12/03/19 08:33 Dose: 325 mg Documented by: Atorvastatin Calcium (Lipitor) 20 mg PO BEDTIME [facility] Last Admin: 12/02/19 20:46 Dose: 20 mg Documented by: Bisacodyl (Dulcolax) 10 mg RECTAL DAILY PRN PRN Reason: If no BM in 2 days Calcium Carbonate (Caltrate 600+D 1500 Mg-400 Units) 1 tab PO DAILY [facility] Last Admin: 12/03/19 08:34 Dose: 1 tab Documented by: Docusate Sodium (Colace) 100 mg PO BID [facility] Ferrous Sulfate (Ferrous Sulfate) 325 mg PO BIDMEALS [facility] Last Admin: 12/03/19 08:33 Dose: 325 mg Documented by: Ceftriaxone Sodium/Dextrose 1 (gm/ Premix) 50 mls @ 100 mls/hr IV Q24H [facility] Last Admin: 12/02/19 11:00 Dose: 100 mls/hr Documented by: Pantoprazole Sodium 40 mg/ (Sodium Chloride) 10 mls @ 300 mls/hr IV Q24H [facility] Last Admin: 12/02/19 12:55 Dose: 300 mls/hr Documented by: Levothyroxine Sodium (Levothyroxine) 25 mcg PO DAILY@0700 [facility] Last Admin: 12/03/19 06:17 Dose: 25 mcg Documented by: Ondansetron HCl (Zofran) 4 mg IVPUSH Q4H PRN PRN Reason: Nausea Paroxetine HCl (Paxil) 10 mg PO DAILY [facility] Last Admin: 12/03/19 08:34 Dose: 10 mg Documented by: Sodium Chloride (Saline Flush) 2.5 ml FLUSH ASDIRECTED PRN PRN Reason: Keep Vein Open Last Admin: 12/01/19 08:09 Dose: 2.5 ml Documented by: Discontinued Medications Acetaminophen (Tylenol Extra Strength) 1,000 mg PO ONETIME ONE Stop: 12/01/19 07:41 Last Admin: 12/01/19 08:07 Dose: 1,000 mg Documented by: Bupivacaine HCl (Sensorcaine-Mpf 0.5%) Confirm Administered Dose 10 ml .ROUTE .STK-MED ONE Stop: 12/01/19 14:27 Docusate Sodium (Colace) 100 mg PO BID PRN PRN Reason: Constipation Last Admin: 12/03/19 08:34 Dose: 100 mg Documented by: Fentanyl (Fentanyl) 25 mcg IVPUSH ONETIME ONE Stop: 12/01/19 07:41 Last Admin: 12/01/19 08:07 Dose: 25 mcg Documented by: Fentanyl (Sublimaze) Confirm Administered Dose 100 mcg .ROUTE .STK-MED ONE Stop: 12/01/19 14:31 Glycopyrrolate (Robinul) Confirm Administered Dose 0.2 mg .ROUTE .STK-MED ONE Stop: 12/01/19 14:32 Sodium Chloride (Normal Saline) 1,000 mls @ 1,000 mls/hr IV .Bolus ONE Stop: 12/01/19 09:22 Last Admin: 12/01/19 08:36 Dose: 1,000 mls/hr Documented by: Sodium Chloride (Normal Saline) 1,000 mls @ 75 mls/hr IV Q13H [facility] Last Admin: 12/02/19 02:45 Dose: 75 mls/hr Documented by: Cefazolin Sodium/Dextrose 1 gm (/ Premix) 50 mls @ 100 mls/hr IV Q8H [facility] Stop: 12/02/19 06:29 Last Admin: 12/02/19 05:48 Dose: 100 mls/hr Documented by: Magnesium Sulfate 2 gm/ Premix 50 mls @ 50 mls/hr IV ONETIME ONE Stop: 12/02/19 03:39 Last Admin: 12/02/19 02:50 Dose: 50 mls/hr Documented by: Ketamine HCl (Ketalar) Confirm Administered Dose 500 mg .ROUTE .STK-MED ONE Stop: 12/01/19 14:35 Ketorolac Tromethamine (Toradol) Confirm Administered Dose 30 mg .ROUTE .STK-MED ONE Stop: 12/01/19 14:32 Lidocaine (Xylocaine-Mpf 2%) Confirm Administered Dose 5 ml .ROUTE .STK-MED ONE Stop: 12/01/19 14:32 Midazolam HCl (Versed 1 Mg/Ml) Confirm Administered Dose 2 mg .ROUTE .STK-MED ONE Stop: 12/01/19 14:31 Morphine Sulfate (Morphine) 2 mg IVPUSH Q2H PRN PRN Reason: Pain (severe 7-10) Last Admin: 12/03/19 06:25 Dose: 2 mg Documented by: Ondansetron HCl (Zofran) Confirm Administered Dose 4 mg .ROUTE .STK-MED ONE Stop: 12/01/19 14:32 Oxycodone HCl (Oxycodone) 10 mg PO ONETIME ONE Stop: 12/01/19 09:11 Last Admin: 12/01/19 09:25 Dose: 10 mg Documented by: Phenylephrine HCl (Stephen-Synephrine) Confirm Administered Dose 10 mg .ROUTE .STK- MED ONE Stop: 12/01/19 14:06 Potassium Chloride (Klor-Con M20) 40 meq PO ONETIME ONE Stop: 12/01/19 21:05 Last Admin: 12/01/19 21:34 Dose: 40 meq Documented by: Propofol (Diprivan 20 Ml) Confirm Administered Dose 200 mg .ROUTE .STK-MED ONE Stop: 12/01/19 14:31 Sodium Chloride (Saline Flush) 10 ml FLUSH ASDIRECTED PRN PRN Reason: Keep Vein Open Last Admin: 12/01/19 08:09 Dose: 10 ml Documented by: - Exam Wound/Incisions: Dressing Dry and Intact, No Drainage Quality Assessment: DVT Prophylaxis (asa daily) General: Alert, Oriented, Cooperative, No Acute Distress Lungs: Normal Respiratory Effort Extremities: Other (no right calf swelling or erythema). No: Pedal Edema Neurological: Normal Speech Psy/Mental Status: Alert Sepsis Event Note - Evaluation Sepsis Screening Result: No Definite Risk - Focused Exam Vital Signs: Vital Signs Temp Pulse Resp BP BP Pulse Ox 12/03/19 08:00 37.2 C 79 12 99/42 L 96 12/03/19 04:00 37 C 81 17 98/50 L 100 12/03/19 00:00 110/50 L 12/02/19 23:45 36.4 C 69 16 94/49 L 100 Date Exam was Performed: 12/03/19 Time Exam was Performed: 15:46 - Problem List Review Problem List Initiated/Reviewed/Updated: Yes - My Orders Last 24 Hours: Active Orders 24 hr Category Date Time Status Insert Urinary Catheter [OM.PC] Q24H Care 12/03/19 08:45 Ordered Remove Chappell Catheter [Urinary Catheter Removal] [RC] Care 12/02/19 08:45 Active PER UNIT ROUTINE Urinary Catheter Assessment [RC] ASDIRECTED Care 12/02/19 08:45 Active Verify Patient Consent Obtain [RC] ASDIRECTED Care 12/03/19 07:50 Active BASIC METABOLIC PANEL,BMP [CHEM] AM Lab 12/04/19 05:11 Ordered CBC WITH AUTO DIFF [HEME] AM Lab 12/04/19 05:11 Ordered MAGNESIUM [CHEM] AM Lab 12/04/19 05:11 Ordered PHOSPHORUS [CHEM] AM Lab 12/04/19 05:11 Ordered RED BLOOD CELLS LP [BBK] Stat Lab 12/03/19 07:49 Results Acetaminophen/HYDROcodone [[place] 325-5 MG] Med 12/02/19 09:43 Active 1 tab PO Q4H PRN Aspirin [Ecotrin] Med 12/02/19 09:00 Active 325 mg PO DAILY Calcium Carbonate/Vitamin D3 [Caltrate 600+D 1500 MG- Med 12/02/19 09:00 Active 400 Units] 1 tab PO DAILY Docusate Sodium [Colace] Med 12/03/19 09:15 Active 100 mg PO BID PARoxetine [Paxil] Med 12/02/19 09:00 Active 10 mg PO DAILY bisacodyL [Dulcolax] Med 12/03/19 09:05 Active 10 mg RECTAL DAILY PRN Transfuse Red Blood Cells [COMM] Stat Oth 12/03/19 07:49 Ordered Medication Orders Hydrocodone Bitart/Acetaminophen ([place] 325-5 Mg) 1 tab PO Q4H PRN PRN Reason: Pain Last Admin: 12/02/19 17:51 Dose: 1 tab Documented by: SARAI Cosigned by: MARLON Aspirin (Ecotrin) 325 mg PO DAILY [facility] Last Admin: 12/03/19 08:33 Dose: 325 mg Documented by: ESVIN Cosigned by: NIDA Admin: 12/02/19 08:45 Dose: 325 mg Documented by: RASHAAD Saezigned by: NIDA Atorvastatin Calcium (Lipitor) 20 mg PO BEDTIME [facility] Last Admin: 12/02/19 20:46 Dose: 20 mg Documented by: SARAI Cosigned by: MARLON Admin: 12/01/19 20:09 Dose: 20 mg Documented by: ESVIN Cosigned by: ARNULFO Bisacodyl (Dulcolax) 10 mg RECTAL DAILY PRN PRN Reason: If no BM in 2 days Calcium Carbonate (Caltrate 600+D 1500 Mg-400 Units) 1 tab PO DAILY [facility] Last Admin: 12/03/19 08:34 Dose: 1 tab Documented by: ESVIN Cosigned by: NIDA Admin: 12/02/19 08:45 Dose: 1 tab Documented by: RASHAAD Cosigned by: NIDA Docusate Sodium (Colace) 100 mg PO BID [facility] Ferrous Sulfate (Ferrous Sulfate) 325 mg PO BIDMEALS [facility] Last Admin: 12/03/19 08:33 Dose: 325 mg Documented by: ESVIN Cosigned by: NIDA Admin: 12/02/19 17:51 Dose: 325 mg Documented by: SARAI Cosigned by: MARLON Admin: 12/02/19 08:44 Dose: 325 mg Documented by: RASHAAD Cosigned by: NIDA Admin: 12/01/19 18:07 Dose: Not Given Documented by: DONN Ceftriaxone Sodium/Dextrose 1 (gm/ Premix) 50 mls @ 100 mls/hr IV Q24H [facility] Last Admin: 12/02/19 11:00 Dose: 100 mls/hr Documented by: Infusion: 12/01/19 12:23 Dose: 100 mls/hr Documented by: Admin: 12/01/19 11:53 Dose: 100 mls/hr Documented by: DONN Pantoprazole Sodium 40 mg/ (Sodium Chloride) 10 mls @ 300 mls/hr IV Q24H [facility] Last Admin: 12/02/19 12:55 Dose: 300 mls/hr Documented by: Infusion: 12/01/19 13:16 Dose: 300 mls/hr Documented by: Admin: 12/01/19 13:14 Dose: 300 mls/hr Documented by: DONN Levothyroxine Sodium (Levothyroxine) 25 mcg PO DAILY@0700 [facility] Last Admin: 12/03/19 06:17 Dose: 25 mcg Documented by: Admin: 12/02/19 06:41 Dose: 25 mcg Documented by: MARCELLO Ondansetron HCl (Zofran) 4 mg IVPUSH Q4H PRN PRN Reason: Nausea Paroxetine HCl (Paxil) 10 mg PO DAILY [facility] Last Admin: 12/03/19 08:34 Dose: 10 mg Documented by: ESVIN Cosigned by: NIDA Admin: 12/02/19 08:45 Dose: 10 mg Documented by: RASHAAD Cosigned by: NIDA Sodium Chloride (Saline Flush) 2.5 ml FLUSH ASDIRECTED PRN PRN Reason: Keep Vein Open Last Admin: 12/01/19 08:09 Dose: 2.5 ml Documented by: GENESIS - Assessment Assessment (Free Text/Narrative):: 1) Right hip hemiarthroplasty 2) anemia - Plan Plan (Free Text/Narrative):: Surgical dressing to right hip CDI with no bloody shadows. No acute swelling or bruising to right hip. Will plan on changing dressing and applying AquaCell dressing prior to discharge. Pain is manageable with minimal usage of narcotics. Continue PT. DVT prophylaxis : ASA, SCDS bilaterally, and ambulation. Hospitalist services/coverage for medical management. Jessica NORTON informed myself that she ordered PRBC d/t low Hg 7.1 and Neris c/o feeling weak. BENCH SCIENTIST also stated Neris has h/o GI bleed October 2019, and will cease use of ASA if concerns arise.
[2019-12-03] MEDS: Docusate Sodium 100 MG Cap PO SCH ×2 (11:37→21:14)
[2019-12-03] MEDS: Pantoprazole 40 MG in Sodium Chloride 0.9% 10 ML IV SCH ×2 (11:43→21:50)
[2019-12-03] MEDS: cefTRIAXone 1 GM in Premix Bag 1 BAG IV SCH (11:55)
[2019-12-03] MEDS: Acetaminophen/HYDROcodone 325-5 MG Tab PO PRN (12:10)
[2019-12-03] MEDS ORDERED: Sodium Chloride 0.9% 500 ML IV ONE (13:10)
--- NOTE | 2019-12-03 13:37 | PCM.SN.2 ---
- Free Text/Narrative Note: Nursing notified myself of hypotension. BP 78/45. Patient alert, but slightly confused on exam. Appears non-toxic. Received Cushman 1 hour ago. Repeat manual and machine BPs 90/50s. HR stable. Lactic acid obtained 1.4. Ordered 500 ml bolus for now. Continue blood transfusion. No signs of sepsis or shock. Will continue to monitor. Stop Cushman and continue with Tylenol PRN pain. Microbiology also returned E faecalis, PCN resistant. Stop Rocephin and start Vancomycin per pharmacy to dose. Dr Sagastume notified and is in agreement with treatment changes.
[2019-12-03] MEDS: atorvaSTATin 20 MG Tab PO SCH (21:13)
[2019-12-03] MEDS: Acetaminophen 325 MG Tab PO PRN (21:51)
[2019-12-04 07:02] LABS: CARBON DIOXIDE,CO2 24.7 mmol/L (21.0-32.0); POTASSIUM,K 4.4 mmol/L (3.5-5.1)
[2019-12-04] MEDS: Levothyroxine 25 MCG Tab PO SCH (07:04)
[2019-12-04] MEDS: Acetaminophen 325 MG Tab PO PRN ×3 (08:01→22:27)
[2019-12-04] MEDS: Ferrous Sulfate 325 MG Tab PO SCH ×2 (08:04→17:35)
[2019-12-04] MEDS: Calcium Carbonate/Vitamin D3 1500 MG-400 Units Tab PO SCH (08:43)
[2019-12-04] MEDS: Docusate Sodium 100 MG Cap PO SCH ×2 (08:43→20:51)
[2019-12-04] MEDS: Aspirin 325 MG Tab.EC PO SCH (08:43)
[2019-12-04] MEDS: Pantoprazole 40 MG in Sodium Chloride 0.9% 10 ML IV SCH ×2 (11:09→22:21)
--- NOTE | 2019-12-04 12:15 | PCM.PN ---
- General Info Date of Service: 12/04/19 - Review of Systems Systems Review Comment:: pain is controlled - Patient Data Vitals - Most Recent: Last Vital Signs Temp 36.3 C 12/04/19 07:15 Pulse 73 12/04/19 07:15 Resp 18 12/04/19 07:15 BP 113/51 L 12/04/19 07:15 Pulse Ox 98 12/04/19 09:00 Weight - Most Recent: 54.431 kg I&O - Last 24 Hours: Intake & Output 12/03/19 12/04/19 12/04/19 22:59 06:59 14:59 Intake Total 890 400 Output Total 600 350 Balance 290 50 Lab Results Last 24 Hours: Laboratory Results - last 24 hr 12/01/19 12/03/19 12/03/19 Range/Units 07:40 13:24 15:45 WBC (4.0-11.0) K/uL RBC (4.30-5.90) M/uL Hgb 9.5 L (12.0-16.0) g/dL Hct 28.8 L (36.0-46.0) % MCV (80.0-98.0) fL MCH (27.0-32.0) pg MCHC (31.0-37.0) g/dL RDW Std Deviation (28.0-62.0) fl RDW Coeff of [place] (11.0-15.0) % Plt Count (150-400) K/uL MPV (7.40-12.00) fL Neut % (Auto) (48.0-80.0) % Lymph % (Auto) (16.0-40.0) % [place] % (Auto) (0.0-15.0) % Eos % (Auto) (0.0-7.0) % Baso % (Auto) (0.0-1.5) % Neut # (Auto) (1.4-5.7) K/uL Lymph # (Auto) (0.6-2.4) K/uL [place] # (Auto) (0.0-0.8) K/uL Eos # (Auto) (0.0-0.7) K/uL Baso # (Auto) (0.0-0.1) K/uL Nucleated RBC % /100WBC Nucleated RBCs # K/uL Lactate 1.4 (0.20-2.00) mmol/L Sodium (136-145) mmol/L Potassium (3.5-5.1) mmol/L Chloride (98-107) mmol/L Carbon Dioxide (21.0-32.0) mmol/L BUN (7.0-18.0) mg/dL Creatinine (0.6-1.0) mg/dL Est Cr Clr Drug Dosing mL/min Estimated GFR (MDRD) ml/min Glucose (74-106) mg/dL Calcium (8.5-10.1) mg/dL Phosphorus (2.6-4.7) mg/dL Magnesium (1.8-2.4) mg/dL Blood Type A POSITIVE Antibody Screen NEGATIVE Crossmatch See Detail 12/04/19 12/04/19 Range/Units 06:10 06:10 WBC 8.46 (4.0-11.0) K/uL RBC 3.19 L (4.30-5.90) M/uL Hgb 9.6 L (12.0-16.0) g/dL Hct 28.6 L (36.0-46.0) % MCV 89.7 (80.0-98.0) fL MCH 30.1 (27.0-32.0) pg MCHC 33.6 (31.0-37.0) g/dL RDW Std Deviation 65.3 H (28.0-62.0) fl RDW Coeff of [place] 20 H (11.0-15.0) % Plt Count 123 L (150-400) K/uL MPV 10.00 (7.40-12.00) fL Neut % (Auto) 77.7 (48.0-80.0) % Lymph % (Auto) 11.8 L (16.0-40.0) % [place] % (Auto) 8.2 (0.0-15.0) % Eos % (Auto) 1.9 (0.0-7.0) % Baso % (Auto) 0.4 (0.0-1.5) % Neut # (Auto) 6.6 H (1.4-5.7) K/uL Lymph # (Auto) 1.0 (0.6-2.4) K/uL [place] # (Auto) 0.7 (0.0-0.8) K/uL Eos # (Auto) 0.2 (0.0-0.7) K/uL Baso # (Auto) 0.0 (0.0-0.1) K/uL Nucleated RBC % 0.0 /100WBC Nucleated RBCs # 0 K/uL Lactate (0.20-2.00) mmol/L Sodium 136 (136-145) mmol/L Potassium 4.4 (3.5-5.1) mmol/L Chloride 104 (98-107) mmol/L Carbon Dioxide 24.7 (21.0-32.0) mmol/L BUN 31 H (7.0-18.0) mg/dL Creatinine 1.4 H (0.6-1.0) mg/dL Est Cr Clr Drug Dosing 26.62 mL/min Estimated GFR (MDRD) 36.0 ml/min Glucose 105 (74-106) mg/dL Calcium 7.3 L (8.5-10.1) mg/dL Phosphorus 2.6 (2.6-4.7) mg/dL Magnesium 2.1 (1.8-2.4) mg/dL Blood Type Antibody Screen Crossmatch [place] Results Last 24 Hours: Microbiology 12/03/19 18:52 Stool Occult Blood ([place]) - Final Stool / Feces 12/01/19 10:55 Urine Culture - Final Urine, Chappell Cath ([place]) Enterococcus Faecalis Staphylococcus Epidermidis Med Orders - Current: Current Medications Acetaminophen (Tylenol) 650 mg PO Q4H PRN PRN Reason: Pain Last Admin: 12/04/19 08:01 Dose: 650 mg Documented by: Aspirin (Ecotrin) 325 mg PO DAILY [facility] Last Admin: 12/04/19 08:43 Dose: 325 mg Documented by: Atorvastatin Calcium (Lipitor) 20 mg PO BEDTIME [facility] Last Admin: 12/03/19 21:13 Dose: 20 mg Documented by: Bisacodyl (Dulcolax) 10 mg RECTAL DAILY PRN PRN Reason: If no BM in 2 days Last Admin: 12/03/19 15:00 Dose: 10 mg Documented by: Calcium Carbonate (Caltrate 600+D 1500 Mg-400 Units) 1 tab PO DAILY [facility] Last Admin: 12/04/19 08:43 Dose: 1 tab Documented by: Docusate Sodium (Colace) 100 mg PO BID [facility] Last Admin: 12/04/19 08:43 Dose: 100 mg Documented by: Ferrous Sulfate (Ferrous Sulfate) 325 mg PO BIDMEALS [facility] Last Admin: 12/04/19 08:04 Dose: 325 mg Documented by: Pantoprazole Sodium 40 mg/ (Sodium Chloride) 10 mls @ 300 mls/hr IV Q12H [facility] Last Admin: 12/04/19 11:09 Dose: 300 mls/hr Documented by: Vancomycin HCl 0.75 gm/ Sodium (Chloride) 250 mls @ 166.667 mls/hr IV Q24H [facility] Levothyroxine Sodium (Levothyroxine) 25 mcg PO DAILY@0700 [facility] Last Admin: 12/04/19 07:04 Dose: 25 mcg Documented by: Ondansetron HCl (Zofran) 4 mg IVPUSH Q4H PRN PRN Reason: Nausea Paroxetine HCl (Paxil) 10 mg PO DAILY [facility] Last Admin: 12/04/19 08:43 Dose: 10 mg Documented by: Sodium Chloride (Saline Flush) 2.5 ml FLUSH ASDIRECTED PRN PRN Reason: Keep Vein Open Last Admin: 12/01/19 08:09 Dose: 2.5 ml Documented by: Vancomycin HCl (Pharmacy To Dose - Vancomycin) 1 dose .XX ASDIRECTED [facility] Discontinued Medications Acetaminophen (Tylenol Extra Strength) 1,000 mg PO ONETIME ONE Stop: 12/01/19 07:41 Last Admin: 12/01/19 08:07 Dose: 1,000 mg Documented by: Hydrocodone Bitart/Acetaminophen ([place] 325-5 Mg) 1 tab PO Q4H PRN PRN Reason: Pain Last Admin: 12/03/19 12:10 Dose: 1 tab Documented by: Bupivacaine HCl (Sensorcaine-Mpf 0.5%) Confirm Administered Dose 10 ml .ROUTE .STK-MED ONE Stop: 12/01/19 14:27 Docusate Sodium (Colace) 100 mg PO BID PRN PRN Reason: Constipation Last Admin: 12/03/19 08:34 Dose: 100 mg Documented by: Fentanyl (Fentanyl) 25 mcg IVPUSH ONETIME ONE Stop: 12/01/19 07:41 Last Admin: 12/01/19 08:07 Dose: 25 mcg Documented by: Fentanyl (Sublimaze) Confirm Administered Dose 100 mcg .ROUTE .STK-MED ONE Stop: 12/01/19 14:31 Glycopyrrolate (Robinul) Confirm Administered Dose 0.2 mg .ROUTE .STK-MED ONE Stop: 12/01/19 14:32 Sodium Chloride (Normal Saline) 1,000 mls @ 1,000 mls/hr IV .Bolus ONE Stop: 12/01/19 09:22 Last Admin: 12/01/19 08:36 Dose: 1,000 mls/hr Documented by: Sodium Chloride (Normal Saline) 1,000 mls @ 75 mls/hr IV Q13H [facility] Last Admin: 12/02/19 02:45 Dose: 75 mls/hr Documented by: Ceftriaxone Sodium/Dextrose 1 (gm/ Premix) 50 mls @ 100 mls/hr IV Q24H [facility] Last Admin: 12/03/19 11:55 Dose: 100 mls/hr Documented by: Pantoprazole Sodium 40 mg/ (Sodium Chloride) 10 mls @ 300 mls/hr IV Q24H [facility] Last Admin: 12/02/19 12:55 Dose: 300 mls/hr Documented by: Cefazolin Sodium/Dextrose 1 gm (/ Premix) 50 mls @ 100 mls/hr IV Q8H [facility] Stop: 12/02/19 06:29 Last Admin: 12/02/19 05:48 Dose: 100 mls/hr Documented by: Magnesium Sulfate 2 gm/ Premix 50 mls @ 50 mls/hr IV ONETIME ONE Stop: 12/02/19 03:39 Last Admin: 12/02/19 02:50 Dose: 50 mls/hr Documented by: Sodium Chloride (Normal Saline) 500 mls @ 999 mls/hr IV ONETIME ONE Stop: 12/03/19 13:40 Last Admin: 12/03/19 13:30 Dose: 999 mls/hr Documented by: Vancomycin HCl 0.75 gm/ Sodium (Chloride) 100 mls @ 100 mls/hr IV Q24H [facility] Last Admin: 12/03/19 15:16 Dose: 100 mls/hr Documented by: Ketamine HCl (Ketalar) Confirm Administered Dose 500 mg .ROUTE .STK-MED ONE Stop: 12/01/19 14:35 Ketorolac Tromethamine (Toradol) Confirm Administered Dose 30 mg .ROUTE .STK-MED ONE Stop: 12/01/19 14:32 Lidocaine (Xylocaine-Mpf 2%) Confirm Administered Dose 5 ml .ROUTE .STK-MED ONE Stop: 12/01/19 14:32 Midazolam HCl (Versed 1 Mg/Ml) Confirm Administered Dose 2 mg .ROUTE .STK-MED ONE Stop: 12/01/19 14:31 Morphine Sulfate (Morphine) 2 mg IVPUSH Q2H PRN PRN Reason: Pain (severe 7-10) Last Admin: 12/03/19 06:25 Dose: 2 mg Documented by: Ondansetron HCl (Zofran) Confirm Administered Dose 4 mg .ROUTE .STK-MED ONE Stop: 12/01/19 14:32 Oxycodone HCl (Oxycodone) 10 mg PO ONETIME ONE Stop: 12/01/19 09:11 Last Admin: 12/01/19 09:25 Dose: 10 mg Documented by: Phenylephrine HCl (Stephen-Synephrine) Confirm Administered Dose 10 mg .ROUTE .STK- MED ONE Stop: 12/01/19 14:06 Potassium Chloride (Klor-Con M20) 40 meq PO ONETIME ONE Stop: 12/01/19 21:05 Last Admin: 12/01/19 21:34 Dose: 40 meq Documented by: Propofol (Diprivan 20 Ml) Confirm Administered Dose 200 mg .ROUTE .STK-MED ONE Stop: 12/01/19 14:31 Sodium Chloride (Saline Flush) 10 ml FLUSH ASDIRECTED PRN PRN Reason: Keep Vein Open Last Admin: 12/01/19 08:09 Dose: 10 ml Documented by: - Exam General: Alert, Oriented Neck: Supple Lungs: Clear to Auscultation, Normal Respiratory Effort Cardiovascular: Regular Rate, Regular Rhythm GI/Abdominal Exam: Normal Bowel Sounds, Soft, Non-Tender Extremities: No Pedal Edema Skin: Warm, Dry, Intact Neurological: No New Focal Deficit Sepsis Event Note - Evaluation Sepsis Screening Result: No Definite Risk - Focused Exam Vital Signs: Vital Signs Temp Pulse Resp BP Pulse Ox Pulse Ox 12/04/19 09:00 98 12/04/19 07:15 36.3 C 73 18 113/51 L 98 12/04/19 04:00 36.4 C 80 17 111/60 98 12/04/19 00:17 36.3 C 78 16 109/50 L 98 Date Exam was Performed: 12/04/19 Time Exam was Performed: 12:11 - Problem List Review Problem List Initiated/Reviewed/Updated: Yes - My Orders Last 24 Hours: My Active Orders 12/05/19 05:11 BASIC METABOLIC PANEL,BMP [CHEM] AM CBC WITH AUTO DIFF [HEME] AM 12/06/19 05:11 BASIC METABOLIC PANEL,BMP [CHEM] AM CBC WITH AUTO DIFF [HEME] AM - Plan Plan:: This 84 year old female admitted s/p fall and noted to have subcapital fracture of R hip 1. Subcapital fracture R hip - Dr Alva, Orthopedics consulted - Continue Pain control, Encourage PO pain control and limit use of IV. - Calcium/Vitamin D daily - episode of hypotension yesterday thought due to norco use 2. Anemia: - s/p 2 units PRBCs hgb stable at 9.6 - hemmocult nebative - Check iron studies, supplement Iron as needed. 3. UTI: - UC growing entercoccus, switched to vancomycin per sensitivities - [facility] cares 4. Fall: - Monitor on telemetry - ECHO results called from Dr Frye, reports moderate to severe aortic stenosis and severe pulmonary hypertension. - PT/OT after surgery - Will likely need to return to SNF for at least rehabilitation 5. HTN/dyslipidemia/hypothyroidism: - Renal function near baseline. - BP soft, will hold meds today and monitor - Continue levothyroxine 6. Recent GI bleed - October 2019 melena noted, EGD refused by patient but colonoscopy done in [place]. No source of bleeding noted since patient refused scope. - Denies dark stools. VTE prophylaxis: SCDs, ASA per Orthopedics Consults: Dr Alva, orthopedics Dispo: 3 days, likely will need placement which [facility] agrees with. Will discuss with social work. Spoke with Dr Mera already regarding admission and need for placement
[2019-12-04] MEDS: atorvaSTATin 20 MG Tab PO SCH (20:51)
[2019-12-05] MEDS: Acetaminophen 325 MG Tab PO PRN ×4 (03:12→22:27)
[2019-12-05] MEDS: Levothyroxine 25 MCG Tab PO SCH (06:43)
[2019-12-05 07:21] LABS: CARBON DIOXIDE,CO2 24.7 mmol/L (21.0-32.0)
[2019-12-05] MEDS: Ferrous Sulfate 325 MG Tab PO SCH ×2 (08:15→17:22)
[2019-12-05] MEDS: Aspirin 325 MG Tab.EC PO SCH (08:17)
[2019-12-05] MEDS: Docusate Sodium 100 MG Cap PO SCH ×2 (08:17→20:53)
[2019-12-05] MEDS: Calcium Carbonate/Vitamin D3 1500 MG-400 Units Tab PO SCH (08:17)
[2019-12-05] MEDS: Pantoprazole 40 MG in Sodium Chloride 0.9% 10 ML IV SCH ×2 (10:50→22:22)
--- NOTE | 2019-12-05 11:44 | PCM.PN ---
- General Info Date of Service: 12/05/19 - Review of Systems Systems Review Comment:: pain controlled - Patient Data Vitals - Most Recent: Last Vital Signs Temp 36.0 C L 12/05/19 07:55 Pulse 65 12/05/19 07:55 Resp 17 12/05/19 07:55 BP 132/49 L 12/05/19 07:55 Pulse Ox 95 12/05/19 09:00 Weight - Most Recent: 54.431 kg I&O - Last 24 Hours: Intake & Output 12/04/19 12/05/19 12/05/19 22:59 06:59 14:59 Intake Total 240 360 Output Total 350 500 Balance -110 -140 Lab Results Last 24 Hours: Laboratory Results - last 24 hr 12/01/19 12/05/19 12/05/19 Range/Units 07:40 06:40 06:40 WBC 8.61 (4.0-11.0) K/uL RBC 3.45 L (4.30-5.90) M/uL Hgb 10.3 L (12.0-16.0) g/dL Hct 31.2 L (36.0-46.0) % MCV 90.4 (80.0-98.0) fL MCH 29.9 (27.0-32.0) pg MCHC 33.0 (31.0-37.0) g/dL RDW Std Deviation 65.0 H (28.0-62.0) fl RDW Coeff of Rossana 20 H (11.0-15.0) % Plt Count 158 (150-400) K/uL MPV 10.50 (7.40-12.00) fL Neut % (Auto) 79.5 (48.0-80.0) % Lymph % (Auto) 10.9 L (16.0-40.0) % [place] % (Auto) 6.4 (0.0-15.0) % Eos % (Auto) 3.0 (0.0-7.0) % Baso % (Auto) 0.2 (0.0-1.5) % Neut # (Auto) 6.8 H (1.4-5.7) K/uL Lymph # (Auto) 0.9 (0.6-2.4) K/uL [place] # (Auto) 0.6 (0.0-0.8) K/uL Eos # (Auto) 0.3 (0.0-0.7) K/uL Baso # (Auto) 0.0 (0.0-0.1) K/uL Nucleated RBC % 0.0 /100WBC Nucleated RBCs # 0 K/uL Sodium 139 (136-145) mmol/L Potassium 4.0 (3.5-5.1) mmol/L Chloride 105 (98-107) mmol/L Carbon Dioxide 24.7 (21.0-32.0) mmol/L BUN 27 H (7.0-18.0) mg/dL Creatinine 1.1 H (0.6-1.0) mg/dL Est Cr Clr Drug Dosing 33.88 mL/min Estimated GFR (MDRD) 47.6 ml/min Glucose 93 (74-106) mg/dL Calcium 7.6 L (8.5-10.1) mg/dL Crossmatch See Detail Med Orders - Current: Current Medications Acetaminophen (Tylenol) 650 mg PO Q4H PRN PRN Reason: Pain Last Admin: 12/05/19 08:15 Dose: 650 mg Documented by: Aspirin (Ecotrin) 325 mg PO DAILY [facility] Last Admin: 12/05/19 08:17 Dose: 325 mg Documented by: Atorvastatin Calcium (Lipitor) 20 mg PO BEDTIME [facility] Last Admin: 12/04/19 20:51 Dose: 20 mg Documented by: Bisacodyl (Dulcolax) 10 mg RECTAL DAILY PRN PRN Reason: If no BM in 2 days Last Admin: 12/03/19 15:00 Dose: 10 mg Documented by: Calcium Carbonate (Caltrate 600+D 1500 Mg-400 Units) 1 tab PO DAILY [facility] Last Admin: 12/05/19 08:17 Dose: 1 tab Documented by: Docusate Sodium (Colace) 100 mg PO BID [facility] Last Admin: 12/05/19 08:17 Dose: 100 mg Documented by: Ferrous Sulfate (Ferrous Sulfate) 325 mg PO BIDMEALS [facility] Last Admin: 12/05/19 08:15 Dose: 325 mg Documented by: Pantoprazole Sodium 40 mg/ (Sodium Chloride) 10 mls @ 300 mls/hr IV Q12H [facility] Last Admin: 12/05/19 10:50 Dose: 300 mls/hr Documented by: Vancomycin HCl 0.75 gm/ Sodium (Chloride) 250 mls @ 166.667 mls/hr IV Q24H [facility] Last Admin: 12/04/19 13:42 Dose: 166.667 mls/hr Documented by: Levothyroxine Sodium (Levothyroxine) 25 mcg PO DAILY@0700 [facility] Last Admin: 12/05/19 06:43 Dose: 25 mcg Documented by: Ondansetron HCl (Zofran) 4 mg IVPUSH Q4H PRN PRN Reason: Nausea Paroxetine HCl (Paxil) 10 mg PO DAILY [facility] Last Admin: 12/05/19 08:17 Dose: 10 mg Documented by: Sodium Chloride (Saline Flush) 2.5 ml FLUSH ASDIRECTED PRN PRN Reason: Keep Vein Open Last Admin: 12/01/19 08:09 Dose: 2.5 ml Documented by: Vancomycin HCl (Pharmacy To Dose - Vancomycin) 1 dose .XX ASDIRECTED [facility] Discontinued Medications Acetaminophen (Tylenol Extra Strength) 1,000 mg PO ONETIME ONE Stop: 12/01/19 07:41 Last Admin: 12/01/19 08:07 Dose: 1,000 mg Documented by: Hydrocodone Bitart/Acetaminophen ([place] 325-5 Mg) 1 tab PO Q4H PRN PRN Reason: Pain Last Admin: 12/03/19 12:10 Dose: 1 tab Documented by: Bupivacaine HCl (Sensorcaine-Mpf 0.5%) Confirm Administered Dose 10 ml .ROUTE .STK-MED ONE Stop: 12/01/19 14:27 Docusate Sodium (Colace) 100 mg PO BID PRN PRN Reason: Constipation Last Admin: 12/03/19 08:34 Dose: 100 mg Documented by: Fentanyl (Fentanyl) 25 mcg IVPUSH ONETIME ONE Stop: 12/01/19 07:41 Last Admin: 12/01/19 08:07 Dose: 25 mcg Documented by: Fentanyl (Sublimaze) Confirm Administered Dose 100 mcg .ROUTE .STK-MED ONE Stop: 12/01/19 14:31 Glycopyrrolate (Robinul) Confirm Administered Dose 0.2 mg .ROUTE .STK-MED ONE Stop: 12/01/19 14:32 Sodium Chloride (Normal Saline) 1,000 mls @ 1,000 mls/hr IV .Bolus ONE Stop: 12/01/19 09:22 Last Admin: 12/01/19 08:36 Dose: 1,000 mls/hr Documented by: Sodium Chloride (Normal Saline) 1,000 mls @ 75 mls/hr IV Q13H [facility] Last Admin: 12/02/19 02:45 Dose: 75 mls/hr Documented by: Ceftriaxone Sodium/Dextrose 1 (gm/ Premix) 50 mls @ 100 mls/hr IV Q24H [facility] Last Admin: 12/03/19 11:55 Dose: 100 mls/hr Documented by: Pantoprazole Sodium 40 mg/ (Sodium Chloride) 10 mls @ 300 mls/hr IV Q24H [facility] Last Admin: 12/02/19 12:55 Dose: 300 mls/hr Documented by: Cefazolin Sodium/Dextrose 1 gm (/ Premix) 50 mls @ 100 mls/hr IV Q8H [facility] Stop: 12/02/19 06:29 Last Admin: 12/02/19 05:48 Dose: 100 mls/hr Documented by: Magnesium Sulfate 2 gm/ Premix 50 mls @ 50 mls/hr IV ONETIME ONE Stop: 12/02/19 03:39 Last Admin: 12/02/19 02:50 Dose: 50 mls/hr Documented by: Sodium Chloride (Normal Saline) 500 mls @ 999 mls/hr IV ONETIME ONE Stop: 12/03/19 13:40 Last Admin: 12/03/19 13:30 Dose: 999 mls/hr Documented by: Vancomycin HCl 0.75 gm/ Sodium (Chloride) 100 mls @ 100 mls/hr IV Q24H [facility] Last Admin: 12/03/19 15:16 Dose: 100 mls/hr Documented by: Ketamine HCl (Ketalar) Confirm Administered Dose 500 mg .ROUTE .STK-MED ONE Stop: 12/01/19 14:35 Ketorolac Tromethamine (Toradol) Confirm Administered Dose 30 mg .ROUTE .STK-MED ONE Stop: 12/01/19 14:32 Lidocaine (Xylocaine-Mpf 2%) Confirm Administered Dose 5 ml .ROUTE .STK-MED ONE Stop: 12/01/19 14:32 Midazolam HCl (Versed 1 Mg/Ml) Confirm Administered Dose 2 mg .ROUTE .STK-MED ONE Stop: 06/24/20 14:31 Morphine Sulfate (Morphine) 2 mg IVPUSH Q2H PRN PRN Reason: Pain (severe 7-10) Last Admin: 12/03/19 06:25 Dose: 2 mg Documented by: Ondansetron HCl (Zofran) Confirm Administered Dose 4 mg .ROUTE .STK-MED ONE Stop: 12/01/19 14:32 Oxycodone HCl (Oxycodone) 10 mg PO ONETIME ONE Stop: 12/01/19 09:11 Last Admin: 12/01/19 09:25 Dose: 10 mg Documented by: Phenylephrine HCl (Stephen-Synephrine) Confirm Administered Dose 10 mg .ROUTE .STK- MED ONE Stop: 12/01/19 14:06 Potassium Chloride (Klor-Con M20) 40 meq PO ONETIME ONE Stop: 12/01/19 21:05 Last Admin: 12/01/19 21:34 Dose: 40 meq Documented by: Propofol (Diprivan 20 Ml) Confirm Administered Dose 200 mg .ROUTE .STK-MED ONE Stop: 12/01/19 14:31 Sodium Chloride (Saline Flush) 10 ml FLUSH ASDIRECTED PRN PRN Reason: Keep Vein Open Last Admin: 12/01/19 08:09 Dose: 10 ml Documented by: - Exam General: Alert, Oriented Neck: Supple Lungs: Clear to Auscultation, Normal Respiratory Effort Cardiovascular: Regular Rate, Regular Rhythm GI/Abdominal Exam: Soft, Non-Tender, No Distention Extremities: Non-Tender, No Pedal Edema Skin: Warm, Dry, Intact Wound/Incisions: Healing Well Neurological: No New Focal Deficit Sepsis Event Note - Evaluation Sepsis Screening Result: No Definite Risk - Focused Exam Vital Signs: Vital Signs Temp Pulse Resp BP BP Pulse Ox Pulse Ox 12/05/19 09:00 95 12/05/19 07:55 36.0 C L 65 17 132/49 L 95 12/05/19 04:00 36.6 C 66 15 115/57 L 93 L Date Exam was Performed: 12/05/19 Time Exam was Performed: 11:41 - Problem List Review Problem List Initiated/Reviewed/Updated: Yes - My Orders Last 24 Hours: My Active Orders 12/05/19 10:50 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 Alva. 1. Subcapital fracture R hip - Dr Alva, Orthopedics consulted - Continue Pain control with tylenol, avoiding narcotics as caused confusion and hypotension - Calcium/Vitamin D daily 2. Anemia: - s/p 2 units PRBCs hgb stable at 10.3 - hemmocult negative - Check iron studies, supplement Iron as needed. 3. UTI: - UC growing entercoccus, switched to vancomycin per sensitivities - [facility] cares 4. Fall: - Monitor on telemetry - ECHO results called from Dr Frye, reports moderate to severe aortic stenosis and severe pulmonary hypertension. - PT/OT after surgery - Will likely need to return to SNF for at least rehabilitation 5. HTN/dyslipidemia/hypothyroidism: - Renal function near baseline. - BP soft, will hold meds today and monitor - Continue levothyroxine 6. Recent GI bleed - October 2019 melena noted, EGD refused by patient but colonoscopy done in [place]. No source of bleeding noted since patient refused scope. - Denies dark stools. VTE prophylaxis: SCDs, ASA per Orthopedics Consults: Dr Alva, orthopedics Dispo: 3 days, likely will need placement which Neris agrees with.
[2019-12-05] MEDS: atorvaSTATin 20 MG Tab PO SCH (20:53)
[2019-12-06] MEDS: Levothyroxine 25 MCG Tab PO SCH (06:32)
[2019-12-06 06:38] LABS: CARBON DIOXIDE,CO2 27.4 mmol/L (21.0-32.0); POTASSIUM,K 4.1 mmol/L (3.5-5.1)
[2019-12-06] MEDS: Docusate Sodium 100 MG Cap PO SCH (08:28)
[2019-12-06] MEDS: Aspirin 325 MG Tab.EC PO SCH (08:28)
[2019-12-06] MEDS: Acetaminophen 325 MG Tab PO PRN (08:28)
[2019-12-06] MEDS: Calcium Carbonate/Vitamin D3 1500 MG-400 Units Tab PO SCH (08:29)
[2019-12-06] MEDS: Ferrous Sulfate 325 MG Tab PO SCH (08:29)
[2019-12-06] MEDS: Pantoprazole 40 MG in Sodium Chloride 0.9% 10 ML IV SCH (11:17)
--- NOTE | 2019-12-06 11:42 | PCM.SURGPN ---
- General Info Date of Service: 12/06/19 (9765) Date of Surgery/Procedure: 12/01/19 POD#: 5 Post-Op Diagnosis: s/p Right hip hemiarthroplasty Admission Diagnosis/Problem: Hip fracture requiring operative repair Functional Status: Reports: Pain Controlled (managing pain with Tylenol as narcotic causing confusion & dizziness), Tolerating Diet, Ambulating (PT currently at bedside. Neris states she just got back into bed from being up in the chair. Able to bear weight on RLE) - Review of Systems General: Denies: Fever Pulmonary: Denies: Shortness of Breath Musculoskeletal: Reports: Joint Pain (post-op right hip pain) Neurological: Denies: Confusion Psychiatric: Denies: Confusion - Patient Data Vitals - Most Recent: Last Vital Signs Temp 36.6 C 12/06/19 08:32 Pulse 60 12/06/19 08:32 Resp 16 12/06/19 08:32 BP 145/64 H 12/06/19 08:32 Pulse Ox 97 12/06/19 08:32 Weight - Most Recent: 54.431 kg I&O - Last 24 Hours: Intake & Output 12/05/19 12/06/19 12/06/19 22:59 06:59 14:59 Intake Total 150 250 Output Total 450 450 Balance -300 -200 Lab Results Last 24 Hrs: Laboratory Results - last 24 hr 12/05/19 12/06/19 12/06/19 Range/Units 13:36 06:00 06:00 WBC 7.24 (4.0-11.0) K/uL RBC 3.30 L (4.30-5.90) M/uL Hgb 9.8 L (12.0-16.0) g/dL Hct 30.2 L (36.0-46.0) % MCV 91.5 (80.0-98.0) fL MCH 29.7 (27.0-32.0) pg MCHC 32.5 (31.0-37.0) g/dL RDW Std Deviation 63.7 H (28.0-62.0) fl RDW Coeff of Rossana 19 H (11.0-15.0) % Plt Count 180 (150-400) K/uL MPV 10.10 (7.40-12.00) fL Neut % (Auto) 74.5 (48.0-80.0) % Lymph % (Auto) 13.8 L (16.0-40.0) % [place] % (Auto) 7.3 (0.0-15.0) % Eos % (Auto) 4.1 (0.0-7.0) % Baso % (Auto) 0.3 (0.0-1.5) % Neut # (Auto) 5.4 (1.4-5.7) K/uL Lymph # (Auto) 1.0 (0.6-2.4) K/uL [place] # (Auto) 0.5 (0.0-0.8) K/uL Eos # (Auto) 0.3 (0.0-0.7) K/uL Baso # (Auto) 0.0 (0.0-0.1) K/uL Nucleated RBC % 0.0 /100WBC Nucleated RBCs # 0 K/uL Sodium 140 (136-145) mmol/L Potassium 4.1 (3.5-5.1) mmol/L Chloride 105 (98-107) mmol/L Carbon Dioxide 27.4 (21.0-32.0) mmol/L BUN 23 H (7.0-18.0) mg/dL Creatinine 1.3 H (0.6-1.0) mg/dL Est Cr Clr Drug Dosing 28.67 mL/min Estimated GFR (MDRD) 39.2 ml/min Glucose 91 (74-106) mg/dL Calcium 7.6 L (8.5-10.1) mg/dL Vancomycin Trough 11.0 H (5.0-10.0) ug/mL Med Orders - Current: Current Medications Acetaminophen (Tylenol) 650 mg PO Q4H PRN PRN Reason: Pain Last Admin: 12/06/19 08:28 Dose: 650 mg Documented by: Aspirin (Ecotrin) 325 mg PO DAILY [facility] Last Admin: 12/06/19 08:28 Dose: 325 mg Documented by: Atorvastatin Calcium (Lipitor) 20 mg PO BEDTIME [facility] Last Admin: 12/05/19 20:53 Dose: 20 mg Documented by: Bisacodyl (Dulcolax) 10 mg RECTAL DAILY PRN PRN Reason: If no BM in 2 days Last Admin: 12/03/19 15:00 Dose: 10 mg Documented by: Calcium Carbonate (Caltrate 600+D 1500 Mg-400 Units) 1 tab PO DAILY [facility] Last Admin: 12/06/19 08:29 Dose: 1 tab Documented by: Docusate Sodium (Colace) 100 mg PO BID [facility] Last Admin: 12/06/19 08:28 Dose: 100 mg Documented by: Ferrous Sulfate (Ferrous Sulfate) 325 mg PO BIDMEALS [facility] Last Admin: 12/06/19 08:29 Dose: 325 mg Documented by: Pantoprazole Sodium 40 mg/ (Sodium Chloride) 10 mls @ 300 mls/hr IV Q12H [facility] Last Admin: 12/06/19 11:17 Dose: 300 mls/hr Documented by: Vancomycin HCl 0.75 gm/ Sodium (Chloride) 250 mls @ 166.667 mls/hr IV Q24H [facility] Last Admin: 12/05/19 14:32 Dose: 166.667 mls/hr Documented by: Levothyroxine Sodium (Levothyroxine) 25 mcg PO DAILY@0700 [facility] Last Admin: 12/06/19 06:32 Dose: 25 mcg Documented by: Ondansetron HCl (Zofran) 4 mg IVPUSH Q4H PRN PRN Reason: Nausea Paroxetine HCl (Paxil) 10 mg PO DAILY [facility] Last Admin: 12/06/19 08:29 Dose: 10 mg Documented by: Sodium Chloride (Saline Flush) 2.5 ml FLUSH ASDIRECTED PRN PRN Reason: Keep Vein Open Last Admin: 12/01/19 08:09 Dose: 2.5 ml Documented by: Vancomycin HCl (Pharmacy To Dose - Vancomycin) 1 dose .XX ASDIRECTED [facility] Discontinued Medications Acetaminophen (Tylenol Extra Strength) 1,000 mg PO ONETIME ONE Stop: 12/01/19 07:41 Last Admin: 12/01/19 08:07 Dose: 1,000 mg Documented by: Hydrocodone Bitart/Acetaminophen ([place] 325-5 Mg) 1 tab PO Q4H PRN PRN Reason: Pain Last Admin: 12/03/19 12:10 Dose: 1 tab Documented by: Bupivacaine HCl (Sensorcaine-Mpf 0.5%) Confirm Administered Dose 10 ml .ROUTE .STK-MED ONE Stop: 12/01/19 14:27 Docusate Sodium (Colace) 100 mg PO BID PRN PRN Reason: Constipation Last Admin: 12/03/19 08:34 Dose: 100 mg Documented by: Fentanyl (Fentanyl) 25 mcg IVPUSH ONETIME ONE Stop: 12/01/19 07:41 Last Admin: 12/01/19 08:07 Dose: 25 mcg Documented by: Fentanyl (Sublimaze) Confirm Administered Dose 100 mcg .ROUTE .STK-MED ONE Stop: 12/01/19 14:31 Glycopyrrolate (Robinul) Confirm Administered Dose 0.2 mg .ROUTE .STK-MED ONE Stop: 12/01/19 14:32 Sodium Chloride (Normal Saline) 1,000 mls @ 1,000 mls/hr IV .Bolus ONE Stop: 12/01/19 09:22 Last Admin: 12/01/19 08:36 Dose: 1,000 mls/hr Documented by: Sodium Chloride (Normal Saline) 1,000 mls @ 75 mls/hr IV Q13H [facility] Last Admin: 12/02/19 02:45 Dose: 75 mls/hr Documented by: Ceftriaxone Sodium/Dextrose 1 (gm/ Premix) 50 mls @ 100 mls/hr IV Q24H [facility] Last Admin: 12/03/19 11:55 Dose: 100 mls/hr Documented by: Pantoprazole Sodium 40 mg/ (Sodium Chloride) 10 mls @ 300 mls/hr IV Q24H [facility] Last Admin: 12/02/19 12:55 Dose: 300 mls/hr Documented by: Cefazolin Sodium/Dextrose 1 gm (/ Premix) 50 mls @ 100 mls/hr IV Q8H [facility] Stop: 12/02/19 06:29 Last Admin: 12/02/19 05:48 Dose: 100 mls/hr Documented by: Magnesium Sulfate 2 gm/ Premix 50 mls @ 50 mls/hr IV ONETIME ONE Stop: 12/02/19 03:39 Last Admin: 12/02/19 02:50 Dose: 50 mls/hr Documented by: Sodium Chloride (Normal Saline) 500 mls @ 999 mls/hr IV ONETIME ONE Stop: 12/03/19 13:40 Last Admin: 12/03/19 13:30 Dose: 999 mls/hr Documented by: Vancomycin HCl 0.75 gm/ Sodium (Chloride) 100 mls @ 100 mls/hr IV Q24H [facility] Last Admin: 12/03/19 15:16 Dose: 100 mls/hr Documented by: Ketamine HCl (Ketalar) Confirm Administered Dose 500 mg .ROUTE .STK-MED ONE Stop: 12/01/19 14:35 Ketorolac Tromethamine (Toradol) Confirm Administered Dose 30 mg .ROUTE .STK-MED ONE Stop: 12/01/19 14:32 Lidocaine (Xylocaine-Mpf 2%) Confirm Administered Dose 5 ml .ROUTE .STK-MED ONE Stop: 12/01/19 14:32 Midazolam HCl (Versed 1 Mg/Ml) Confirm Administered Dose 2 mg .ROUTE .STK-MED ONE Stop: 12/01/19 14:31 Morphine Sulfate (Morphine) 2 mg IVPUSH Q2H PRN PRN Reason: Pain (severe 7-10) Last Admin: 12/03/19 06:25 Dose: 2 mg Documented by: Ondansetron HCl (Zofran) Confirm Administered Dose 4 mg .ROUTE .STK-MED ONE Stop: 12/01/19 14:32 Oxycodone HCl (Oxycodone) 10 mg PO ONETIME ONE Stop: 12/01/19 09:11 Last Admin: 12/01/19 09:25 Dose: 10 mg Documented by: Phenylephrine HCl (Stephen-Synephrine) Confirm Administered Dose 10 mg .ROUTE .STK- MED ONE Stop: 12/01/19 14:06 Potassium Chloride (Klor-Con M20) 40 meq PO ONETIME ONE Stop: 12/01/19 21:05 Last Admin: 12/01/19 21:34 Dose: 40 meq Documented by: Propofol (Diprivan 20 Ml) Confirm Administered Dose 200 mg .ROUTE .STK-MED ONE Stop: 12/01/19 14:31 Sodium Chloride (Saline Flush) 10 ml FLUSH ASDIRECTED PRN PRN Reason: Keep Vein Open Last Admin: 12/01/19 08:09 Dose: 10 ml Documented by: - Exam Wound/Incisions: Dressing Dry and Intact (Large AquaCell dressing intact to Right hip with scant linear shadow of drainage). No: Erythema (no erythema surrounding AquaCell bandage) Quality Assessment: DVT Prophylaxis (ASA, SCDs bilaterally, ambulation) General: Alert, Oriented, Cooperative, No Acute Distress Lungs: Normal Respiratory Effort Neurological: Normal Speech Psy/Mental Status: Alert, Normal Affect Sepsis Event Note - Evaluation Sepsis Screening Result: No Definite Risk - Focused Exam Vital Signs: Vital Signs Temp Pulse Resp BP Pulse Ox 12/06/19 08:32 36.6 C 60 16 145/64 H 97 12/06/19 04:46 36.0 C L 59 L 18 138/53 L 95 12/05/19 23:46 36.2 C 87 16 130/60 95 Date Exam was Performed: 12/06/19 Time Exam was Performed: 11:37 - Problem List Review Problem List Initiated/Reviewed/Updated: Yes - My Orders Last 24 Hours: Active Orders 24 hr Category Date Time Status 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 [Cardiac Monitoring Care 12/05/19 10:50 Active Discontinue] [RC] Click to Edit Medication Orders Acetaminophen (Tylenol) 650 mg PO Q4H PRN PRN Reason: Pain Last Admin: 12/06/19 08:28 Dose: 650 mg Documented by: Admin: 12/05/19 22:27 Dose: 650 mg Documented by: Admin: 12/05/19 17:22 Dose: 650 mg Documented by: Admin: 12/05/19 08:15 Dose: 650 mg Documented by: Admin: 12/05/19 03:12 Dose: 650 mg Documented by: Admin: 12/04/19 22:27 Dose: 650 mg Documented by: Admin: 12/04/19 13:34 Dose: 650 mg Documented by: Admin: 12/04/19 08:01 Dose: 650 mg Documented by: Admin: 12/03/19 21:51 Dose: 650 mg Documented by: ZOE Aspirin (Ecotrin) 325 mg PO DAILY [facility] Admin: 12/06/19 08:28 Dose: 325 mg Documented by: Admin: 12/05/19 08:17 Dose: 325 mg Documented by: Admin: 12/04/19 08:43 Dose: 325 mg Documented by: Admin: 12/03/19 08:33 Dose: 325 mg Documented by: ESVIN Cosigned by: NIDA Admin: 12/02/19 08:45 Dose: 325 mg Documented by: RASHAAD Cosigned by: NIDA Atorvastatin Calcium (Lipitor) 20 mg PO BEDTIME [facility] Admin: 12/05/19 20:53 Dose: 20 mg Documented by: Admin: 12/04/19 20:51 Dose: 20 mg Documented by: Admin: 12/03/19 21:13 Dose: 20 mg Documented by: Admin: 12/02/19 20:46 Dose: 20 mg Documented by: SARAI Cosigned by: MARLON Admin: 12/01/19 20:09 Dose: 20 mg Documented by: ESVIN Cosigned by: ARNULFO Bisacodyl (Dulcolax) 10 mg RECTAL DAILY PRN PRN Reason: If no BM in 2 days Last Admin: 12/03/19 15:00 Dose: 10 mg Documented by: MICAH Calcium Carbonate (Caltrate 600+D 1500 Mg-400 Units) 1 tab PO DAILY [facility] Admin: 12/06/19 08:29 Dose: 1 tab Documented by: Admin: 12/05/19 08:17 Dose: 1 tab Documented by: Admin: 12/04/19 08:43 Dose: 1 tab Documented by: Admin: 12/03/19 08:34 Dose: 1 tab Documented by: ESVIN Cosigned by: NIDA Admin: 12/02/19 08:45 Dose: 1 tab Documented by: RASHAAD Cosigned by: NIDA Docusate Sodium (Colace) 100 mg PO BID [facility] Admin: 12/06/19 08:28 Dose: 100 mg Documented by: Admin: 12/05/19 20:53 Dose: 100 mg Documented by: Admin: 12/05/19 08:17 Dose: 100 mg Documented by: Admin: 12/04/19 20:51 Dose: 100 mg Documented by: Admin: 12/04/19 08:43 Dose: 100 mg Documented by: Admin: 12/03/19 21:14 Dose: 100 mg Documented by: Admin: 12/03/19 11:37 Dose: Not Given Documented by: MICAH Ferrous Sulfate (Ferrous Sulfate) 325 mg PO BIDMEALS [facility] Last Admin: 12/06/19 08:29 Dose: 325 mg Documented by: Admin: 12/05/19 17:22 Dose: 325 mg Documented by: Admin: 12/05/19 08:15 Dose: 325 mg Documented by: Admin: 12/04/19 17:35 Dose: 325 mg Documented by: Admin: 12/04/19 08:04 Dose: 325 mg Documented by: Admin: 12/03/19 17:28 Dose: 325 mg Documented by: Admin: 12/03/19 08:33 Dose: 325 mg Documented by: ESVIN Cosigned by: NIDA Admin: 12/02/19 17:51 Dose: 325 mg Documented by: SARAI Cosigned by: MARLON Admin: 12/02/19 08:44 Dose: 325 mg Documented by: RASHAAD Cosigned by: NIDA Admin: 12/01/19 18:07 Dose: Not Given Documented by: DONN Pantoprazole Sodium 40 mg/ (Sodium Chloride) 10 mls @ 300 mls/hr IV Q12H [facility] Last Admin: 12/06/19 11:17 Dose: 300 mls/hr Documented by: Infusion: 12/05/19 22:24 Dose: 300 mls/hr Documented by: Admin: 12/05/19 22:22 Dose: 300 mls/hr Documented by: Infusion: 12/05/19 10:52 Dose: 300 mls/hr Documented by: Admin: 12/05/19 10:50 Dose: 300 mls/hr Documented by: Infusion: 12/04/19 22:23 Dose: 300 mls/hr Documented by: Admin: 12/04/19 22:21 Dose: 300 mls/hr Documented by: Infusion: 12/04/19 11:11 Dose: 300 mls/hr Documented by: Admin: 12/04/19 11:09 Dose: 300 mls/hr Documented by: Infusion: 12/03/19 21:52 Dose: 300 mls/hr Documented by: Admin: 12/03/19 21:50 Dose: 300 mls/hr Documented by: Infusion: 12/03/19 11:45 Dose: 300 mls/hr Documented by: VNAESSADDJOSÉ Admin: 12/03/19 11:43 Dose: 300 mls/hr Documented by: MICAH Vancomycin HCl 0.75 gm/ Sodium (Chloride) 250 mls @ 166.667 mls/hr IV Q24H [facility] Last Admin: 12/05/19 14:32 Dose: 166.667 mls/hr Documented by: Infusion: 12/04/19 15:12 Dose: 166.667 mls/hr Documented by: Admin: 12/04/19 13:42 Dose: 166.667 mls/hr Documented by: RAMBO Levothyroxine Sodium (Levothyroxine) 25 mcg PO DAILY@0700 [facility] Last Admin: 12/06/19 06:32 Dose: 25 mcg Documented by: Admin: 12/05/19 06:43 Dose: 25 mcg Documented by: Admin: 12/04/19 07:04 Dose: 25 mcg Documented by: Admin: 12/03/19 06:17 Dose: 25 mcg Documented by: Admin: 12/02/19 06:41 Dose: 25 mcg Documented by: MARCELLO Ondansetron HCl (Zofran) 4 mg IVPUSH Q4H PRN PRN Reason: Nausea Paroxetine HCl (Paxil) 10 mg PO DAILY [facility] Last Admin: 12/06/19 08:29 Dose: 10 mg Documented by: Admin: 12/05/19 08:17 Dose: 10 mg Documented by: Admin: 12/04/19 08:43 Dose: 10 mg Documented by: Admin: 12/03/19 08:34 Dose: 10 mg Documented by: ESVIN Cosigned by: NIDA Admin: 12/02/19 08:45 Dose: 10 mg Documented by: RASHAAD Cosigned by: NIDA Sodium Chloride (Saline Flush) 2.5 ml FLUSH ASDIRECTED PRN PRN Reason: Keep Vein Open Last Admin: 12/01/19 08:09 Dose: 2.5 ml Documented by: GENESIS Vancomycin HCl (Pharmacy To Dose - Vancomycin) 1 dose .XX ASDIRECTED [facility] - Assessment Assessment (Free Text/Narrative):: 1) s/p Right hip hemiarthroplasty 2) anemia, stable - Plan Plan (Free Text/Narrative):: PT currently in room, working on RLE strengthening. Neris states she just got back into bed from sitting in the chair this morning. PT reports over the weekend, she has been able to bear weight on RLE. Pain managed with Tylenol (adverse effects with narcotics). Hg 9.8, stable/improved after 2PRBCs Spoke with hospitalists, whom recommended switching VTE prophylaxis to Eliquis vs current ASA d/t h/o GI bleed. Agree with recommendation. (ASA therapy recommendation was for 3 weeks. Hospitalist will switch ASA to Eliquis, continuing for an additional 2 weeks). Hospitalists appreciated for medical management. Orthopedics services relinquished for remainder of hospital stay. [facility] Follow up in clinic 2 weeks post-op for suture removal and xray.
--- NOTE | 2019-12-06 11:54 | PCM.DCSUM1 ---
Discharge Summary - Hospital Course Brief History: This 84 year old female with pmh of HTN, dyslipidemia, hypothyroidism presented to the ED qith R groin pain and inability to ambulate after she fell last night. She reports she was up ambulating to her closet when she suddenly fell. She denies dizziness, lightheadedness, chest pain or palpitations before fall. She reports she remembers the entire fall, just unsure of the mechanism of fall. She denies passing out and denies hitting her head. She reports she has been feeling well prior to this. No fevers or chills. No cough or dyspnea. No abdominal pain, urinary symptoms or diarrhea. She reports more constipation if anything, denies BM in the last 2-3 days. She denies focal neurological deficits. She reports she quit smoking maybe 4 months ago, no alcohol use and no recreational drug use. She denies known CAD, no previous MS or stenting. No CHF. No COPD. No hx CVA. In the ED no leukocytosis noted, hgb 11.2, platelets 196, K+ 3.4, BUN 27, Cr 1.4 troponin negative. TSH 3.43, Headt CT negative, some chronic sinusitis. Cervical spine CT negative. Hip Xray r evealed mildly impacted subcapital fracture within the R hip. CXR negative, no cardiomegaly. She was given Pain medications in the ED. Dr Alva, orthopedics notified of admission and he agrees. PCP Dr Mera - Discharge Data Discharge Date: 12/06/19 Discharge Disposition: DC/Tfer to SNF 03 Condition: Stable - Referral to Home Health Primary Care Physician: PCP None - Discharge Diagnosis/Problem(s) (1) Subcapital fracture of right femur SNOMED Code(s): 628595130, 81952236186999298 ICD Code: S72.011A - UNSP INTRACAPSULAR FRACTURE OF RIGHT FEMUR, INIT FOR CLOS FX Status: Acute Current Visit: Yes Qualifiers: Encounter type: initial encounter Fracture type: closed Qualified Code(s): S72.011A - Unspecified intracapsular fracture of right femur, initial encounter for closed fracture (2) Fall SNOMED Code(s): 4281868, 598498223 ICD Code: W19.XXXA - UNSPECIFIED FALL, INITIAL ENCOUNTER Status: Acute Current Visit: Yes (3) HTN (hypertension) SNOMED Code(s): 80182570 ICD Code: I10 - ESSENTIAL (PRIMARY) HYPERTENSION Status: Chronic Current Visit: Yes (4) Dyslipidemia SNOMED Code(s): 489687372 ICD Code: E78.5 - HYPERLIPIDEMIA, UNSPECIFIED Status: Chronic Current Visit: Yes (5) Hypothyroidism SNOMED Code(s): 20964455 ICD Code: E03.9 - HYPOTHYROIDISM, UNSPECIFIED Status: Chronic Current Visit: Yes (6) GI bleeding SNOMED Code(s): 34824736 ICD Code: K92.2 - GASTROINTESTINAL HEMORRHAGE, UNSPECIFIED Status: Chronic Current Visit: Yes Qualifiers: GI bleed type/associated pathology: melena Qualified Code(s): K92.1 - Melena (7) Compression fracture SNOMED Code(s): 759835042 ICD Code: LWI1080 - Status: Chronic Current Visit: Yes (8) Anemia SNOMED Code(s): 217917687 ICD Code: D64.9 - ANEMIA, UNSPECIFIED Status: Acute Current Visit: Yes - Patient Summary/Data Operative Procedure(s) Performed: right hip hemiarthroplasty Consults: Consultations 12/01/19 10:39 Consult to Physician [CONS] Routine 12/01/19 17:06 PT Evaluation and Treatment [CONS] Routine Hospital Course: Admitting Diagnoses: Subcaptial fracture R femur Fall Discharge Diagnoses: S/p hemiarthoplasty R hip Anemia Aortic stenosis E faecalis UTI Neris was admitted secondary tofall which results in R hip fracture. Dr Alav Orthopedics was consulted and took Neris to the OR. Post-operatively she did well. She was transfused 2 units PRBCs when Hgb dipped to 7.1. She tolerated this well. Narcotics caused some confusion and hypotension, Tylenol alone was given for pain which pain has been tolerated. PT has been working with her, she is able to bear weight as tolerated to R leg. Prior to surgery, ECHO obtained which showed aortic stenosis, moderate to severe as well as pulmonary hypertension. Again post op course went well with little complications. She was encouraged to see [facility] as outpatient. She denies chest pain or SOB. Reports she remembers fall, so hard to say if it was syncope or not. She will be continued on Eliquis with hx of GI bleed, hold ASA for VTE prophylaxis followi ng hip procedure. This will continue only for 2 weeks then stop. UTI noted on admission treated with Rocephin, UC returned with E faecalis, switched to Vancomycin. Will continue Levaquin x 2 more days on Discharge. She will go to [facility] for rehabilitation, Dr Mera was notified at admission that this was the plan. He has accepted patient upon discharge. Neris is to return to ED or clinic if concerns should arise. No change to home medications. - Patient Instructions Diet: Regular Diet as Tolerated Activity: As Tolerated, Cough & Deep Breathe, Full Weight Bearing (as tolerated), No Strenuous Activities Driving: Do Not Drive Showering/Bathing: May Shower, No Tub Bathing/Swimming Notify Provider of: Fever, Increased Pain, Swelling and Redness, Drainage, Nausea and/or Vomiting Other/Special Instructions: PT/OT evaluate and treat. [facility] per policy. [facility] - Discharge Plan *PRESCRIPTION DRUG MONITORING PROGRAM REVIEWED*: Not Applicable *COPY OF PRESCRIPTION DRUG MONITORING REPORT IN PATIENT MIGUEL: Not Applicable Prescriptions/Med Rec: Apixaban [Eliquis] 2.5 mg PO BID #28 tablet levoFLOXacin [Levaquin] 750 mg PO Q48H #1 tab Home Medications: Home Meds Losartan/Hydrochlorothiazide [Losartan-HCTZ 100-25 MG] 1 tab PO DAILY 07/31/17 [History] atorvaSTATin [Lipitor] 20 mg PO DAILY 07/31/17 [History] Levothyroxine Sodium [Synthroid] 1 tab PO DAILY 08/25/19 [History] Ferrous Sulfate 324 mg PO BIDMEALS 12/01/19 [History] PARoxetine [Paxil] 10 mg PO DAILY 12/01/19 [History] Acetaminophen [Tylenol] 650 mg PO Q4H PRN tablet 12/06/19 [Rx] Apixaban [Eliquis] 2.5 mg PO BID #28 tablet 12/06/19 [Rx] Calcium Carbonate/Vitamin D3 [Caltrate 600+D 1500 MG-400 Units] 1 tab PO DAILY tablet 12/06/19 [Rx] Docusate Sodium [Colace] 100 mg PO BID cap 12/06/19 [Rx] bisacodyL [Dulcolax] 10 mg RECTAL DAILY PRN supp 12/06/19 [Rx] levoFLOXacin [Levaquin] 750 mg PO Q48H #1 tab 12/06/19 [Rx] Patient Handouts: Fall Prevention in the Home, Adult, [id number], Hip Fracture, Levofloxacin tablets, Apixaban oral tablets Referrals: Sunita Willams NP [Nurse Practitioner] - 12/09/19 2:20 pm (Please arrive at 2:00pm.) Ari Mera MD [Physician] - (Dr. Mera will see you at [facility]. ) - Discharge Summary/Plan Comment DC Time >30 min.: Yes (discussing with Orthopedics DC plans ) - Patient Data Vitals - Most Recent: Last Vital Signs Temp 97.8 F 12/06/19 08:32 Pulse 60 12/06/19 08:32 Resp 16 12/06/19 08:32 BP 145/64 H 12/06/19 08:32 Pulse Ox 97 12/06/19 08:32 Weight - Most Recent: 54.431 kg I&O - Last 24 hours: Intake & Output 12/05/19 12/06/19 12/06/19 22:59 06:59 14:59 Intake Total 150 250 Output Total 450 450 Balance -300 -200 Lab Results - Last 24 hrs: Laboratory Results - last 24 hr 12/05/19 12/06/19 12/06/19 Range/Units 13:36 06:00 06:00 WBC 7.24 (4.0-11.0) K/uL RBC 3.30 L (4.30-5.90) M/uL Hgb 9.8 L (12.0-16.0) g/dL Hct 30.2 L (36.0-46.0) % MCV 91.5 (80.0-98.0) fL MCH 29.7 (27.0-32.0) pg MCHC 32.5 (31.0-37.0) g/dL RDW Std Deviation 63.7 H (28.0-62.0) fl RDW Coeff of Rossana 19 H (11.0-15.0) % Plt Count 180 (150-400) K/uL MPV 10.10 (7.40-12.00) fL Neut % (Auto) 74.5 (48.0-80.0) % Lymph % (Auto) 13.8 L (16.0-40.0) % Jack % (Auto) 7.3 (0.0-15.0) % Eos % (Auto) 4.1 (0.0-7.0) % Baso % (Auto) 0.3 (0.0-1.5) % Neut # (Auto) 5.4 (1.4-5.7) K/uL Lymph # (Auto) 1.0 (0.6-2.4) K/uL Jack # (Auto) 0.5 (0.0-0.8) K/uL Eos # (Auto) 0.3 (0.0-0.7) K/uL Baso # (Auto) 0.0 (0.0-0.1) K/uL Nucleated RBC % 0.0 /100WBC Nucleated RBCs # 0 K/uL Sodium 140 (136-145) mmol/L Potassium 4.1 (3.5-5.1) mmol/L Chloride 105 (98-107) mmol/L Carbon Dioxide 27.4 (21.0-32.0) mmol/L BUN 23 H (7.0-18.0) mg/dL Creatinine 1.3 H (0.6-1.0) mg/dL Est Cr Clr Drug Dosing 28.67 mL/min Estimated GFR (MDRD) 39.2 ml/min Glucose 91 (74-106) mg/dL Calcium 7.6 L (8.5-10.1) mg/dL Vancomycin Trough 11.0 H (5.0-10.0) ug/mL Med Orders - Current: Current Medications Acetaminophen (Tylenol) 650 mg PO Q4H PRN PRN Reason: Pain Last Admin: 12/06/19 08:28 Dose: 650 mg Documented by: Aspirin (Ecotrin) 325 mg PO DAILY [facility] Last Admin: 12/06/19 08:28 Dose: 325 mg Documented by: Atorvastatin Calcium (Lipitor) 20 mg PO BEDTIME [facility] Last Admin: 12/05/19 20:53 Dose: 20 mg Documented by: Bisacodyl (Dulcolax) 10 mg RECTAL DAILY PRN PRN Reason: If no BM in 2 days Last Admin: 12/03/19 15:00 Dose: 10 mg Documented by: Calcium Carbonate (Caltrate 600+D 1500 Mg-400 Units) 1 tab PO DAILY [facility] Last Admin: 12/06/19 08:29 Dose: 1 tab Documented by: Docusate Sodium (Colace) 100 mg PO BID [facility] Last Admin: 12/06/19 08:28 Dose: 100 mg Documented by: Ferrous Sulfate (Ferrous Sulfate) 325 mg PO BIDMEALS [facility] Last Admin: 12/06/19 08:29 Dose: 325 mg Documented by: Pantoprazole Sodium 40 mg/ (Sodium Chloride) 10 mls @ 300 mls/hr IV Q12H [facility] Last Admin: 12/06/19 11:17 Dose: 300 mls/hr Documented by: Vancomycin HCl 0.75 gm/ Sodium (Chloride) 250 mls @ 166.667 mls/hr IV Q24H [facility] Last Admin: 12/05/19 14:32 Dose: 166.667 mls/hr Documented by: Levothyroxine Sodium (Levothyroxine) 25 mcg PO DAILY@0700 [facility] Last Admin: 12/06/19 06:32 Dose: 25 mcg Documented by: Ondansetron HCl (Zofran) 4 mg IVPUSH Q4H PRN PRN Reason: Nausea Paroxetine HCl (Paxil) 10 mg PO DAILY [facility] Last Admin: 12/06/19 08:29 Dose: 10 mg Documented by: Sodium Chloride (Saline Flush) 2.5 ml FLUSH ASDIRECTED PRN PRN Reason: Keep Vein Open Last Admin: 12/01/19 08:09 Dose: 2.5 ml Documented by: Vancomycin HCl (Pharmacy To Dose - Vancomycin) 1 dose .XX ASDIRECTED [facility] Discontinued Medications Acetaminophen (Tylenol Extra Strength) 1,000 mg PO ONETIME ONE Stop: 12/01/19 07:41 Last Admin: 12/01/19 08:07 Dose: 1,000 mg Documented by: Hydrocodone Bitart/Acetaminophen ([place] 325-5 Mg) 1 tab PO Q4H PRN PRN Reason: Pain Last Admin: 12/03/19 12:10 Dose: 1 tab Documented by: Bupivacaine HCl (Sensorcaine-Mpf 0.5%) Confirm Administered Dose 10 ml .ROUTE .STK-MED ONE Stop: 12/01/19 14:27 Docusate Sodium (Colace) 100 mg PO BID PRN PRN Reason: Constipation Last Admin: 12/03/19 08:34 Dose: 100 mg Documented by: Fentanyl (Fentanyl) 25 mcg IVPUSH ONETIME ONE Stop: 12/01/19 07:41 Last Admin: 12/01/19 08:07 Dose: 25 mcg Documented by: Fentanyl (Sublimaze) Confirm Administered Dose 100 mcg .ROUTE .STK-MED ONE Stop: 12/01/19 14:31 Glycopyrrolate (Robinul) Confirm Administered Dose 0.2 mg .ROUTE .STK-MED ONE Stop: 12/01/19 14:32 Sodium Chloride (Normal Saline) 1,000 mls @ 1,000 mls/hr IV .Bolus ONE Stop: 12/01/19 09:22 Last Admin: 12/01/19 08:36 Dose: 1,000 mls/hr Documented by: Sodium Chloride (Normal Saline) 1,000 mls @ 75 mls/hr IV Q13H [facility] Last Admin: 12/02/19 02:45 Dose: 75 mls/hr Documented by: Ceftriaxone Sodium/Dextrose 1 (gm/ Premix) 50 mls @ 100 mls/hr IV Q24H [facility] Last Admin: 12/03/19 11:55 Dose: 100 mls/hr Documented by: Pantoprazole Sodium 40 mg/ (Sodium Chloride) 10 mls @ 300 mls/hr IV Q24H [facility] Last Admin: 12/02/19 12:55 Dose: 300 mls/hr Documented by: Cefazolin Sodium/Dextrose 1 gm (/ Premix) 50 mls @ 100 mls/hr IV Q8H [facility] Stop: 12/02/19 06:29 Last Admin: 12/02/19 05:48 Dose: 100 mls/hr Documented by: Magnesium Sulfate 2 gm/ Premix 50 mls @ 50 mls/hr IV ONETIME ONE Stop: 12/02/19 03:39 Last Admin: 12/02/19 02:50 Dose: 50 mls/hr Documented by: Sodium Chloride (Normal Saline) 500 mls @ 999 mls/hr IV ONETIME ONE Stop: 12/03/19 13:40 Last Admin: 12/03/19 13:30 Dose: 999 mls/hr Documented by: Vancomycin HCl 0.75 gm/ Sodium (Chloride) 100 mls @ 100 mls/hr IV Q24H [facility] Last Admin: 12/03/19 15:16 Dose: 100 mls/hr Documented by: Ketamine HCl (Ketalar) Confirm Administered Dose 500 mg .ROUTE .STK-MED ONE Stop: 12/01/19 14:35 Ketorolac Tromethamine (Toradol) Confirm Administered Dose 30 mg .ROUTE .STK-MED ONE Stop: 12/01/19 14:32 Lidocaine (Xylocaine-Mpf 2%) Confirm Administered Dose 5 ml .ROUTE .STK-MED ONE Stop: 12/01/19 14:32 Midazolam HCl (Versed 1 Mg/Ml) Confirm Administered Dose 2 mg .ROUTE .STK-MED ONE Stop: 12/01/19 14:31 Morphine Sulfate (Morphine) 2 mg IVPUSH Q2H PRN PRN Reason: Pain (severe 7-10) Last Admin: 12/03/19 06:25 Dose: 2 mg Documented by: Ondansetron HCl (Zofran) Confirm Administered Dose 4 mg .ROUTE .STK-MED ONE Stop: 12/01/19 14:32 Oxycodone HCl (Oxycodone) 10 mg PO ONETIME ONE Stop: 12/01/19 09:11 Last Admin: 12/01/19 09:25 Dose: 10 mg Documented by: Phenylephrine HCl (Stephen-Synephrine) Confirm Administered Dose 10 mg .ROUTE .STK- MED ONE Stop: 12/01/19 14:06 Potassium Chloride (Klor-Con M20) 40 meq PO ONETIME ONE Stop: 12/01/19 21:05 Last Admin: 12/01/19 21:34 Dose: 40 meq Documented by: Propofol (Diprivan 20 Ml) Confirm Administered Dose 200 mg .ROUTE .STK-MED ONE Stop: 12/01/19 14:31 Sodium Chloride (Saline Flush) 10 ml FLUSH ASDIRECTED PRN PRN Reason: Keep Vein Open Last Admin: 12/01/19 08:09 Dose: 10 ml Documented by: - Exam General: Reports: Alert, Oriented, Cooperative, No Acute Distress Lungs: Reports: Clear to Auscultation, Normal Respiratory Effort Cardiovascular: Reports: Regular Rate, Regular Rhythm, Murmurs GI/Abdominal Exam: Normal Bowel Sounds, Soft, Non-Tender Extremities: Normal Inspection, Normal Range of Motion, No Pedal Edema Skin: Reports: Warm, Dry Wound/Incisions: Reports: Dressing Dry and Intact, No Drainage Neurological: Reports: No New Focal Deficit Psy/Mental Status: Reports: Alert, Normal Affect, Normal Mood
--- NOTE | 2019-12-06 12:54 | ECHO ---
EXAM DATE: 12/01/19 PATIENT'S AGE: 84 The ECHO report has been scanned into [facility] and can be seen in this patient's EMR (Electronic Medical Record) under the REPORTS section. The report has also been scanned into PACS. [id number]
== END 2019-12-06 15:15 | DRG 470 ==
LOC: MW.ED 07:32 → MW.MS 09:02
PROVIDERS: ADMIT Internal Medicine; ATTEND Internal Medicine
PROC: 0SRR0JZ Replacement of Right Hip Joint, Femoral Surface with Synthetic Substitute, Open Approach (ICD-10-PCS; principal; 2019-12-01)
PROC: 30233N1 Transfusion of Nonautologous Red Blood Cells into Peripheral Vein, Percutaneous Approach (ICD-10-PCS; 2019-12-03)
DX: S72.001A Fracture of unspecified part of neck of right femur, initial encounter for closed fracture (principal); S72.011A Unspecified intracapsular fracture of right femur, initial encounter for closed fracture; N39.0 Urinary tract infection, site not specified; W18.30XA Fall on same level, unspecified, initial encounter; W19.XXXA Unspecified fall, initial encounter; Z20.828 Contact with and (suspected) exposure to other viral communicable diseases; I10 Essential (primary) hypertension; E78.5 Hyperlipidemia, unspecified; E03.9 Hypothyroidism, unspecified; I35.0 Nonrheumatic aortic (valve) stenosis; Z79.82 Long term (current) use of aspirin; D64.9 Anemia, unspecified; Z79.899 Other long term (current) drug therapy; Z79.01 Long term (current) use of anticoagulants; I95.81 Postprocedural hypotension; R41.0 Disorientation, unspecified; B96.89 Other specified bacterial agents as the cause of diseases classified elsewhere; Z79.890 Hormone replacement therapy; E78.00 Pure hypercholesterolemia, unspecified; G89.29 Other chronic pain; M19.90 Unspecified osteoarthritis, unspecified site; M54.9 Dorsalgia, unspecified; Z90.710 Acquired absence of both cervix and uterus; Z90.49 Acquired absence of other specified parts of digestive tract; J32.0 Chronic maxillary sinusitis; Z87.891 Personal history of nicotine dependence
CPT/HCPCS: 36415; 70450; 71045; 72125; 73502; 80053; 82550; 83605; 84443; 84484; 85025; 85610; 86850; 86900; 86901; 86920; 86921; 86922; 93005; 96374; 99285; A9270; J3010; J7030; 01360; 36430; 51702; 80048; 80202; 81001; 82272; 82607; 82728; 82746; 83550; 83735; 84100; 85014; 85018; 87086; 87088; 87186; 93306; 97110-GP; 97161-GP; C1776; C9113; J0690; J0696; J1885; J2001; J2250; J2270; J2370; J2405; J2704; J3370; J3475; J3490; J7040; J7050; P9016; U0002

== ENCOUNTER 2020-11-23 04:49 | Emergency (ER) | payer MEDICARE, BC ==
[2020-11-23] MEDS ORDERED: Sodium Chloride 0.9% 2.5 ML Syringe FLUSH PRN (04:51)
[2020-11-23] MEDS ORDERED: Sodium Chloride 0.9% 10 ML Syringe FLUSH PRN (04:51)
--- NOTE | 2020-11-23 04:51 | EDM.PDOC ---
ED HPI GENERAL MEDICAL PROBLEM - General Stated Complaint: FALL Time Seen by Provider: 11/23/20 04:51 Source of Information: Reports: Patient History Limitations: Reports: No Limitations - History of Present Illness INITIAL COMMENTS - FREE TEXT/NARRATIVE: 85-year-old female past medical history hypertension, hypothyroidism, abdominal aortic aneurysm without rupture, hyperlipidemia, CKD, arthritis, frequent falls presents for fall. Patient had an unwitnessed fall from [facility]. She does not believe that she lost consciousness but cannot provide a good story. She only complained of pain in the back of her head. - Related Data Allergies Allergy/AdvReac Type Severity Reaction Status Date / Time No Known Allergies Allergy Verified 12/01/19 09:58 Home Meds: Home Meds Losartan/Hydrochlorothiazide [Losartan-HCTZ 100-25 MG] 1 tab PO DAILY 07/31/17 [History] atorvaSTATin [Lipitor] 20 mg PO DAILY 07/31/17 [History] Levothyroxine Sodium [Synthroid] 1 tab PO DAILY 08/25/19 [History] Ferrous Sulfate 324 mg PO BIDMEALS 12/01/19 [History] PARoxetine [Paxil] 10 mg PO DAILY 12/01/19 [History] Acetaminophen [Tylenol] 650 mg PO Q4H PRN tablet 12/06/19 [Rx] Apixaban [Eliquis] 2.5 mg PO BID #28 tablet 12/06/19 [Rx] Calcium Carbonate/Vitamin D3 [Caltrate 600+D 1500 MG-400 Units] 1 tab PO DAILY tablet 12/06/19 [Rx] Docusate Sodium [Colace] 100 mg PO BID cap 12/06/19 [Rx] bisacodyL [Dulcolax] 10 mg RECTAL DAILY PRN supp 12/06/19 [Rx] levoFLOXacin [Levaquin] 750 mg PO Q48H #1 tab 12/06/19 [Rx] Sulfamethoxazole/Trimethoprim [Bactrim Ds Tablet] 1 each PO BID 7 Days #14 tablet 11/23/20 [Rx] Past Medical History HEENT History: Reports: None Cardiovascular History: Reports: Aneurysm (thoracic - fixed 10-15 years ago per patient), High Cholesterol, Hypertension. Denies: Heart Failure Respiratory History: Reports: None Gastrointestinal History: Reports: None. Denies: GERD, GI Bleed Genitourinary History: Reports: None. Denies: Chronic Renal Insuffiency FAMILY THERAPIST History: Reports: Other FAMILY THERAPIST History: hysterectomy Musculoskeletal History: Reports: Arthritis, Back Pain, Chronic, Other (See Below) (rt. femur fx. at present) Neurological History: Reports: None. Denies: CVA, TIA Psychiatric History: Reports: None Endocrine/Metabolic History: Reports: Hypothyroidism Hematologic History: Reports: None Immunologic History: Reports: None Oncologic (Cancer) History: Reports: None Dermatologic History: Reports: None - Infectious Disease History Infectious Disease History: Reports: Chicken Pox, Meningitis, Mumps - Past Surgical History Head Surgeries/Procedures: Reports: None HEENT Surgical History: Reports: None Cardiovascular Surgical History: Reports: Aneurysm Respiratory Surgical History: Reports: None GI Surgical History: Reports: Appendectomy, Cholecystectomy, Colonoscopy Female Surgical History: Reports: Hysterectomy Endocrine Surgical History: Reports: None Neurological Surgical History: Reports: None Musculoskeletal Surgical History: Reports: None Oncologic Surgical History: Reports: None Dermatological Surgical History: Reports: None Social & Family History - Family History Family Medical History: No Pertinent Family History - Caffeine Use Caffeine Use: Reports: Coffee Caffeine Use Comment: 1 cup per day - Living Situation & Occupation Occupation: Retired ED ROS GENERAL - Review of Systems Review Of Systems: Comprehensive ROS is negative, except as noted in HPI. ED EXAM, GENERAL - Physical Exam Exam: See Below Exam Limited By: No Limitations General Appearance: Alert, WD/WN, No Apparent Distress Eye Exam: Bilateral Eye: EOMI, PERRL Ears: Normal External Exam Nose: Normal Inspection Throat/Mouth: Normal Voice, No Airway Compromise Head: Normocephalic, Other (3-cm hematoma with small overlying abrasion without active bleeding on left occipital head) Neck: Normal Inspection, Non-Tender Respiratory/Chest: No Respiratory Distress, Lungs Clear, Normal Breath Sounds, No Accessory Muscle Use GI/Abdominal: Soft, Non-Tender Back Exam: Normal Inspection. No: Vertebral Tenderness Extremities: Normal Inspection, Non-Tender, Other (No pelvic tenderness to palpation or instability, no axial loading tenderness) Neurological: Alert, Normal Cognition Skin Exam: Warm, Dry, Intact, Normal Color #1 Interpretation EKG Date: 11/23/20 Time: 05:09 Rhythm: NSR Rate (Beats/Min): 62 [place]: Normal P-Wave: Present QRS: Normal ST-T: Normal QT: Normal IL/PQ Interval: 176 EKG Interpretation Comments: no acute ischemic changes Course - Vital Signs Last Recorded V/S: Last Vital Signs Temp 97.4 F 11/23/20 04:56 Pulse 65 11/23/20 04:56 Resp 20 11/23/20 04:56 BP 144/59 H 11/23/20 04:56 Pulse Ox 97 11/23/20 04:56 - Orders/Labs/Meds Orders: Active Orders 24 hr Category Date Time Status EKG Documentation Completion [RC] STAT Care 11/23/20 04:51 Active Urinary Catheter Assessment [RC] ASDIRECTED Care 11/23/20 05:17 Active Urinary Catheter Insertion [Insert Urinary Catheter] [ Care 11/23/20 05:30 Ordered OM.PC] Q24H Sodium Chloride 0.9% [Saline Flush] Med 11/23/20 04:51 Active 10 ml FLUSH ASDIRECTED PRN Sodium Chloride 0.9% [Saline Flush] Med 11/23/20 04:51 Active 2.5 ml FLUSH ASDIRECTED PRN Saline Lock Insert [OM.PC] Stat Oth 11/23/20 04:51 Ordered Medication Orders Sodium Chloride (Sodium Chloride 0.9% 10 Ml Syringe) 10 ml FLUSH ASDIRECTED PRN PRN Reason: Keep Vein Open Sodium Chloride (Sodium Chloride 0.9% 2.5 Ml Syringe) 2.5 ml FLUSH ASDIRECTED PRN PRN Reason: Keep Vein Open Labs: Laboratory Tests 11/23/20 11/23/20 11/23/20 Range/Units 05:15 05:15 05:50 WBC 9.17 (4.0-11.0) K/uL RBC 3.49 L (4.30-5.90) M/uL Hgb 11.3 L (12.0-16.0) g/dL Hct 33.6 L (36.0-46.0) % MCV 96.3 (80.0-98.0) fL MCH 32.4 H (27.0-32.0) pg MCHC 33.6 (31.0-37.0) g/dL RDW Std Deviation 45.0 (28.0-62.0) fl RDW Coeff of [place] 13 (11.0-15.0) % Plt Count 168 (150-400) K/uL MPV 10.20 (7.40-12.00) fL Neut % (Auto) 67.5 (48.0-80.0) % Lymph % (Auto) 19.0 (16.0-40.0) % [place] % (Auto) 7.2 (0.0-15.0) % Eos % (Auto) 5.9 (0.0-7.0) % Baso % (Auto) 0.4 (0.0-1.5) % Neut # (Auto) 6.2 H (1.4-5.7) K/uL Lymph # (Auto) 1.7 (0.6-2.4) K/uL [place] # (Auto) 0.7 (0.0-0.8) K/uL Eos # (Auto) 0.5 (0.0-0.7) K/uL Baso # (Auto) 0.0 (0.0-0.1) K/uL Nucleated RBC % 0.0 /100WBC Nucleated RBCs # 0 K/uL Sodium 134 L (136-145) mmol/L Potassium 4.4 (3.5-5.1) mmol/L Chloride 99 (98-107) mmol/L Carbon Dioxide 28.8 (21.0-32.0) mmol/L BUN 42 H (7.0-18.0) mg/dL Creatinine 1.5 H (0.6-1.0) mg/dL Est Cr Clr Drug Dosing TNP Estimated GFR (MDRD) 33.2 ml/min Glucose 101 (74-106) mg/dL Calcium 8.3 L (8.5-10.1) mg/dL Total Bilirubin 0.3 (0.2-1.0) mg/dL AST 29 (15-37) IU/L ALT 28 (14-63) IU/L Alkaline Phosphatase 89 (46-116) U/L Creatine Kinase 84 (26-308) U/L Troponin I < 0.050 (0.000-0.056) ng/mL Total Protein 6.9 (6.4-8.2) g/dL Albumin 3.2 L (3.4-5.0) g/dL Globulin 3.7 (2.6-4.0) g/dL Albumin/Globulin Ratio 0.9 (0.9-1.6) Urine Color YELLOW Urine Appearance CLOUDY Urine pH 7.0 (5.0-8.0) Ur Specific [place] 1.025 (1.001-1.035) Urine Protein 100 H (NEGATIVE) mg/dL Urine Glucose (UA) NEGATIVE (NEGATIVE) mg/dL Urine Ketones NEGATIVE (NEGATIVE) mg/dL Urine Occult Blood MODERATE H (NEGATIVE) Urine Nitrite NEGATIVE (NEGATIVE) Urine Bilirubin NEGATIVE (NEGATIVE) Urine Urobilinogen 0.2 (<2.0) EU/dL Ur Leukocyte Esterase MODERATE H (NEGATIVE) Urine RBC 1-3 (0-2/HPF) Urine WBC 20-25 (0-5/HPF) Ur Epithelial Cells RARE (NONE-FEW) Urine Bacteria 2+ H (NEGATIVE) Meds: Medications Generic Name Dose Route Start Last Admin Trade Name Freq PRN Reason Stop Dose Admin Sodium Chloride 10 ml 11/23/20 04:51 Sodium Chloride 0.9% 10 Ml Syringe FLUSH ASDIRECTED PRN Keep Vein Open Sodium Chloride 2.5 ml 11/23/20 04:51 Sodium Chloride 0.9% 2.5 Ml Syringe FLUSH ASDIRECTED PRN Keep Vein Open - Re-Assessments/Exams Free Text/Narrative Re-Assessment/Exam: 11/23/20 05:02 We will get basic labs including total CPK, urinalysis. Will get EKG. Will get chest and pelvic x-ray. Will get head and C-spine CT. 11/23/20 06:12 Imaging and blood work are all unremarkable. We will follow up urinalysis for disposition. 11/23/20 06:19 UA with evidence of UTI; will d/c with Abx Departure - Departure Time of Disposition: 06:19 Disposition: Home, Self-Care 01 Condition: Good Clinical Impression: UTI (urinary tract infection) Qualifiers: Urinary tract infection type: acute cystitis Hematuria presence: without hematuria Qualified Code(s): N30.00 - Acute cystitis without hematuria CHI (closed head injury) Qualifiers: Encounter type: initial encounter Qualified Code(s): S09.90XA - Unspecified injury of head, initial encounter - Discharge Information Prescriptions: Sulfamethoxazole/Trimethoprim [Bactrim Ds Tablet] 1 each PO BID 7 Days #14 tablet Instructions: Head Injury, Adult, Urinary Tract Infection, Adult Referrals: Ari Mera MD [Primary Care Provider] - Additional Instructions: Your imaging is negative for signs of injury from the fall. Your blood work looks great. Your urinalysis does show evidence of a urinary tract infection so antibiotics have been sent to the pharmacy. Please follow-up with your primary care physician. The following information is given to patients seen in the emergency department who are being discharged to home. This information is to outline your options for follow-up care. We provide all patients seen in our emergency department with a follow-up referral. The need for follow-up, as well as the timing and circumstances, are variable depending upon the specifics of your emergency department visit. If you don't have a primary care physician on staff, we will provide you with a referral. We always advise you to contact your personal physician following an emergency department visit to inform them of the circumstance of the visit and for follow-up with them and/or the need for any referrals to a consulting specialist. The emergency department will also refer you to a specialist when appropriate. This referral assures that you have the opportunity for follow-up care with a specialist. All of these measure are taken in an effort to provide you with optimal care, which includes your follow-up. Under all circumstances we always encourage you to contact your private physician who remains a resource for coordinating your care. When calling for follow-up care, please make the office aware that this follow-up is from your recent emergency room visit. If for any reason you are refused follow-up, please contact the [facility] Emergency Department at and asked to speak to the emergency department charge nurse. Please follow up with your primary care physician. If you do not have a primary care physician, see below: [facility] [address] [place] [id number] [facility] [address] [place] [id number] [facility] [address] [place] [id number] Sepsis Event Note (ED) - Focused Exam Vital Signs: Vital Signs Temp Pulse Resp BP Pulse Ox 11/23/20 04:56 97.4 F 65 20 144/59 H 97 - My Orders Last 24 Hours: My Active Orders 11/23/20 04:51 EKG Documentation Completion [RC] STAT Sodium Chloride 0.9% [Saline Flush] 10 ml FLUSH ASDIRECTED PRN Sodium Chloride 0.9% [Saline Flush] 2.5 ml FLUSH ASDIRECTED PRN Saline Lock Insert [OM.PC] Stat 11/23/20 05:17 Urinary Catheter Assessment [RC] ASDIRECTED 11/23/20 05:30 Urinary Catheter Insertion [Insert Urinary Catheter] [OM.PC] Q24H - Assessment/Plan Last 24 Hours: My Active Orders 11/23/20 04:51 EKG Documentation Completion [RC] STAT Sodium Chloride 0.9% [Saline Flush] 10 ml FLUSH ASDIRECTED PRN Sodium Chloride 0.9% [Saline Flush] 2.5 ml FLUSH ASDIRECTED PRN Saline Lock Insert [OM.PC] Stat 11/23/20 05:17 Urinary Catheter Assessment [RC] ASDIRECTED 11/23/20 05:30 Urinary Catheter Insertion [Insert Urinary Catheter] [OM.PC] Q24H
[2020-11-23 05:43] LABS: BLOOD UREA NITROGEN,BUN 42 mg/dL (7.0-18.0); CARBON DIOXIDE,CO2 28.8 mmol/L (21.0-32.0); CHLORIDE,CL 99 mmol/L (98-107); GLUCOSE RANDOM 101 mg/dL (74-106); POTASSIUM,K 4.4 mmol/L (3.5-5.1); SODIUM,NA 134 mmol/L (136-145)
--- NOTE | 2020-11-23 06:01 | CT ---
Indication: Fall Technique: Nonenhanced axial CT imaging through the head. Sagittal and coronal reconstructions are provided. Comparison: CT head without contrast 12/01/2019 Findings: There is no intracranial hemorrhage, edema, or mass effect. Moore-white matter differentiation is preserved. Patchy cerebral white matter hypoattenuation, most likely reflecting chronic microvascular ischemic change, is similar to prior. The ventricles are normal in size. The basal cisterns are patent. The calvarium is intact. The visualized paranasal sinuses and mastoid air cells are aerated. Impression: No acute intracranial process. Please note that all CT scans at this facility use dose modulation, iterative reconstruction, and/or weight-based dosing when appropriate to reduce radiation dose to as low as reasonably achievable. Dictated by Loan Moncada MD @ 11/23/2020 6:00:[address] Loan Moncada @ Nov 23 2020 6:00AM
--- NOTE | 2020-11-23 06:09 | CR ---
INDICATION: Fall TECHNIQUE: Portable upright AP view of the chest COMPARISON: AP chest radiograph 12/01/2019 FINDINGS: The lungs are clear. There is no sizable pleural effusion or pneumothorax. The cardiomediastinal silhouette is stable. The visualized osseous structures are unremarkable. IMPRESSION: No acute abnormality. Dictated by Loan Moncada MD @ 11/23/2020 6:09:[address] Loan Moncada @ Nov 23 2020 6:09AM
--- NOTE | 2020-11-23 06:09 | CT ---
Indication: Fall Technique: Nonenhanced axial CT imaging through the cervical spine. Sagittal and coronal reconstructions are provided. Comparison: CT cervical spine without contrast 12/01/2019 Findings: The cervical vertebral bodies are normal in height. No fracture is demonstrated. There is normal spinal alignment. The atlantoaxial and atlantooccipital relationships are maintained. There is no prevertebral edema. There is multilevel degenerative disc disease, most pronounced at C4-5 and C5-6, with mild spinal stenosis noted at both levels. Multilevel facet arthropathy is also present, worst at C2-3 and C3-4 on the left. Neural foraminal stenosis is noted bilaterally and C3-4 through C6-7. Carotid artery calcifications are noted bilaterally. Impression: 1. No acute fracture or traumatic malalignment. 2. Multilevel degenerative changes, similar to prior. Please note that all CT scans at this facility use dose modulation, iterative reconstruction, and/or weight-based dosing when appropriate to reduce radiation dose to as low as reasonably achievable. Dictated by Loan Moncada MD @ 11/23/2020 6:07:[address] Loan Moncada @ Nov 23 2020 6:07AM
--- NOTE | 2020-11-23 06:11 | CR ---
Indication: Fall Technique: AP view of the pelvis. Comparison: Pelvis and right hip radiographs 12/01/2019 Findings/Impression : Osteopenia. No evidence of acute pelvic fracture or hip dislocation. Right hip arthroplasty appears intact. Dictated by Loan Moncada MD @ 11/23/2020 6:10:[address] Loan Moncada @ Nov 23 2020 6:10AM
== END 2020-11-23 07:01 | disposition home or self-care (01) ==
LOC: MW.ED 04:49
DX: S00.83XA Contusion of other part of head, initial encounter (principal); N30.00 Acute cystitis without hematuria; E78.00 Pure hypercholesterolemia, unspecified; I10 Essential (primary) hypertension; E03.9 Hypothyroidism, unspecified; Z79.01 Long term (current) use of anticoagulants; Z79.899 Other long term (current) drug therapy; W17.89XA Other fall from one level to another, initial encounter; Y92.129 Unspecified place in nursing home as the place of occurrence of the external cause
CPT/HCPCS: 36415; 70450; 70450-26; 71045; 71045-26; 72125; 72125-26; 72170; 72170-26; 80053; 81001; 82550; 84484; 85025; 93005; 93010; 99283; 99284-25